=== PATIENT | male | born 1935 | race Caucasian/White ===

== ENCOUNTER 2017-01-10 15:24 | Inpatient (IN) | payer OTHER, MEDICARE ==
[~2017-01-10] VITALS: Ht 177.8 cm; Wt 79.9 kg
[2017-01-10] MEDS ORDERED: FUROSEMIDE40 M1 PO (15:39)
[2017-01-10] MEDS ORDERED: LISINOPRIL10 M1 PO (15:39)
[2017-01-10] MEDS ORDERED: METOPROLOL TART25 M1 PO (15:40)
[2017-01-10] MEDS ORDERED: EFFIENT10 M1 PO (15:40)
[2017-01-10] MEDS ORDERED: GLIPIZIDE ER5 M1 PO (15:46)
[2017-01-10] MEDS ORDERED: METFORMIN HCL500 M3 PO (15:46)
[2017-01-10] MEDS ORDERED: ZETIA10 M1 PO (15:46)
[2017-01-10] MEDS ORDERED: GABAPENTIN300 M2 PO (15:47)
[2017-01-10] MEDS ORDERED: TAMSULOSIN HCL0.4 M1 PO (15:47)
[2017-01-10] MEDS ORDERED: FINASTERIDE5 M1 PO (15:47)
[2017-01-10] MEDS ORDERED: CRESTOR40 M2 PO (15:48)
[2017-01-10] MEDS ORDERED: ASPIRIN EC81 M1 PO (15:49)
--- NOTE | 2017-01-10 16:02 | ED CRITICAL CARE ---
History of Present Illness General Chief Complaint: Cardiopulmonary Resuscitation Stated Complaint: BIBA CARDIAC ARREST Source: family, EMS Exam Limitations: unable to give history, clinical condition Vital Signs & Intake/Output Vital Signs & Intake/Output Vital Signs Date Time Temp Pulse Resp B/P Pulse O2 O2 Flow FiO2 Ox Delivery Rate / 1050 50 03/ 0951 97.6 70 18 111/52 03/02 0905 97.2 70 18 97/48 03/02 0800 97.2 70 18 124/54 93 Ventilator 50% 03/ 0750 25.8 03/02 0546 50 03/02 0400 96 Ventilator 40% 03/ 0302 50 03/02 0030 50 03/ 0000 97 Ventilator 40% 03/ 0000 99.2 74 25 120/58 97 Ventilator 40% 03/ 2225 50 03/ 2000 96 Ventilator 40% 03/ 1910 40 03/ 1615 40 03/ 1600 97.4 70 18 100/40 95 Ventilator 40% 03/ 1600 95 Ventilator 40% / 1541 69 103/44 03/ 1424 40 03/ 1200 71 81/42 03/ 1200 95 Ventilator 40% 03/ 1151 40 ED Intake and Output 03/ 0000 03/01 1200 Intake Total 3514 1480 Output Total 450 485 Balance 3064 995 Intake, IV 3514 1480 Intake, Oral 0 Intake, Tube 0 Feeding Intake, Tube 0 Irrigant Number 0 0 Bowel Movements Output, 25 Gastric Drainage Output, Urine 450 460 Patient 161 lb Weight Allergies Coded Allergies: No Known Allergies (01/10/17) Reconcile Medications Aspirin (Ecotrin*) 81 MG TABLET.DR 1 TAB PO DAILY HEART/BLOOD (Reported) Ezetimibe (Zetia) 10 MG TABLET 1 TAB PO DAILY CHOLESTEROL (Reported) Finasteride 5 MG TABLET 1 TAB PO DAILY PROSTATE (Reported) Furosemide 40 MG TABLET 0.5 TAB PO DAILY DIURETIC (Reported) Gabapentin 300 MG CAPSULE 1 CAP PO BID NEUROPATHY (Reported) Glipizide (Glipizide ER) 5 MG TAB.ER.24 1 TAB PO DAILY DM (Reported) Lisinopril 10 MG TABLET 1 TAB PO DAILY BP (Reported) Metformin HCl 500 MG TABLET 1 TAB PO BID DM (Reported) Metoprolol Tartrate 25 MG TABLET 1 TAB PO BID HEART/BP (Reported) Prasugrel HCl (Effient) 10 MG TABLET 1 TAB PO DAILY HEART (Reported) Rosuvastatin Calcium (Crestor) 40 MG TABLET 1 TAB PO EOD CHOLESTEROL ( Reported) Tamsulosin HCl 0.4 MG CAP.ER.24H 1 CAP PO DAILY PROSTATE (Reported) Triage Nurses Notes Reviewed? yes HPI: Patient presents for evaluation of a possible choking episode while eating prior to arrival. Patient was noted to be nonverbal and to become diaphoretic and cyanotic. Attempts at Heimlich maneuver were unsuccessful. Upon arrival of the paramedics the patient was intubated after they pulled food from his oropharynx. He was then placed on an epinephrine drip. (DINESH SPENCER,KIRIT Fitzgerald) Past History Travel History Traveled to [place] past 21 day No Medical History Any Pertinent Medical History? see below for history Surgical History Surgical History: unobtainable Family History Hx Contributory? No (KIRIT SHULTZ MD) Review of Systems Review of Systems Constitutional: Reports: see HPI. Comments pt unable to provide ros. (KIRTI SHULTZ MD) Physical Exam Physical Exam General Appearance: see below Comments: gen: wn, wd, intubated, unresponsive head: nc/at eyes: small but not pinpoint pupils, unable to assess eom ears: normal inspection nose: no bleeding throat/mouth: ett in place neck: no goiter, no trauma heart: rrr, no mrg lungs: cta bilaterally with normal air entry with bagged ventilations chest: erythema associated with cpr, no ecchy abd: soft, nd back: no signs of trauma ext: no spontaneous movements, non specific response to noxious stimuli skin: warm and dry circulatory: weak radial pulses neuro: unable to assess psych: unable to assess Core Measures ACS in differential dx? Yes CVA/TIA Diagnosis: No Severe Sepsis Present: No Septic Shock Present: No (KIRIT SHULTZ MD) Progress Differential Diagnoses I considered the following diagnoses in my evaluation of the patient: choking, dysrhythmia, mi. Plan of Care: Orders Procedure Date/time Status Code Status 01/13 0838 Active Cannon, Insertion/Removal/Asses 01/13 0751 Active ARTERIAL BLOOD GAS (GEN) 01/13 0750 Complete VALPROIC ACID 01/13 0500 Complete ICU LAB BUNDLE 01/13 0038 Complete VENTILATOR PARAMETERS 01/12 2210 Complete Seizure Precautions 01/12 1510 Active LACTIC ACID 01/12 1200 Complete DEPAKOTE LEVEL 01/12 1200 Complete VENTILATOR PARAMETERS 01/12 0807 Complete Lab Add-on Test 01/12 UNK Active MISSING MEDICATION FORM 01/12 UNK Active EKG 01/12 UNK Active Current Medications Sig/Marcos Start time Last Medication Dose Stop Time Status Admin Potassium Chloride 20 MEQ Q1H 01/13 1115 AC 01/13 1216 Acetaminophen 1,000 MG Q6P PRN 01/10 1815 AC (Ofirmev) Morphine Sulfate 2 MG Q4P PRN 01/10 181 AC (Morphine) Laboratory Tests 01/13/17 0920: pH 7.34 L, pCO2 28.3 L, pO2 86, HCO3 15 L, ABG O2 Sat (Measured) 96.0, Carboxyhemoglobin 0.3 L, O2 Concentration % 50, Respiration Rate 18, O2 Delivery Method VENT, Vent Mode AC, Expiratory Pressure 5, Tidal Volume 550, Phlebotomy Draw Site RIGHT RADIAL 01/13/17 0445: Anion Gap 11, Estimated GFR > 60, Glucose 117 H, Calcium 7.3 L, Phosphorus 2.6 , Magnesium 2.2, Total Bilirubin 0.5, AST 49, ALT 96 H, Albumin 2.1 L, CBC w Diff MAN DIFF ORDERED, RBC 2.85 L, MCV 87.8, MCH 30.1, RDW 15.2 H, MPV 10.4, Gran % 87.7 H, Lymphocytes % 6.3 L, Monocytes % 6.0, Eosinophils % 0, Basophils % 0 L, Absolute Granulocytes 14.0 H, Segmented Neutrophils 82 H, Band Neutrophils 9 H, Absolute Lymphocytes 1.0 L, Lymphocytes 8 L, Monocytes 1 L, Absolute Monocytes 1.0 H, Absolute Eosinophils 0, Absolute Basophils 0, Platelet Estimate DECREASED, Poikilocytosis 1+, Anisocytosis 1+, Ovalocytes , PUBS MCHC 34.3, Valproic Acid 76.1 01/13/17 0038: Anion Gap 10, Estimated GFR > 60, Glucose 95, Calcium 7.3 L, Phosphorus 2.6, Magnesium 2.1, Total Bilirubin 0.5, AST 54, ALT 98 H, Albumin 2.1 L 01/12/17 1200: Anion Gap 12, Estimated GFR > 60, Glucose 223 H, Lactic Acid 2.7 H, Calcium 7.3 L, Phosphorus 2.6, Magnesium 1.6, Total Bilirubin 0.5, AST 70 H, ALT 118 H, Albumin 2.1 L, PT 15.2 H, INR 1.45 H, APTT 30, Fibrinogen Activity 258, Fibrin Degrad Products > 40 ug/ml H, CBC w Diff MAN DIFF ORDERED, RBC 2.99 L, MCV 87.3, MCH 29.2, RDW 14.5, MPV 9.7, Gran % 91.9 H, Lymphocytes % 3.8 L, Monocytes % 4.2, Eosinophils % 0, Basophils % 0.1, Absolute Granulocytes 19.5 H , Segmented Neutrophils 87 H, Band Neutrophils 8 H, Absolute Lymphocytes 0.8 L, Lymphocytes 4 L, Monocytes 1 L, Absolute Monocytes 0.9 H, Absolute Eosinophils 0, Absolute Basophils 0, Platelet Estimate VERIFIED BY SMEAR, Polychromasia 1+, Poikilocytosis 2+, Ovalocytes 1+, Fernando Cells 2+, PUBS MCHC 33.4, Valproic Acid 56.5 Microbiology 01/13 925 BLOOD: Blood Culture - RECD 01/14 920 BLOOD: Blood Culture - RECD Initial ED EKG: nonspecific ST T wave chg, underlying rhythm appears sinus/ narrow complex dorene Comments: 01/10/2017 3:55:13 PM patient's case discussed with Dr. Chong who is requesting a CAT scan of the head and a triple-lumen catheter. 01/10/2017 4:12:46 PM 7.// 87% PER RESP. 01/10/2017 4:51:40 PM patient has been evaluated by both Dr. Chong and Dr. Nay Bermudez. pt evaluated by [employer] rep. one defib recorded for fine v fib. otherwise pts myoclonic jerking not due to difibs. treated with iv ativan for sedations. keppra given for possible seizures. levophed initiated after pre hosp epi drip exhausted. amiodarone drip infusing as well. central line placed by pa due to number of drips in place. (DINESH SPENCER,KIRIT Fitzgerald) Departure Departure Disposition: STILL A PATIENT Condition: Stable Clinical Impression Primary Impression: Respiratory arrest before cardiac arrest Referrals: PILAR MICHELE MD Departure Forms: General Discharge Information Admission Note Spoke With: Kristopher TOURE MD Documentation of Exam: Documentation of any treatments & extenuating circumstances including Concerns Regarding Discharge (functional status, medication knowledge or non-compliance, living conditions, etc.) that warrant an admission rather than observation: pt successfully resuscitated from cardiac arrest. requires artifical ventilation, iv levophed, cont cardiac monitoring and icu level care. cardiology consult. neuro consult. targeted temperature management. prognosis grave. (KIRIT SHULTZ MD) Procedures Central Line Central Line Lumen: triple Central Line Procedure: Yes: bentadine prep? (chlorhexadine), sterile drapes applied, sterile dressing applied. Central Line Position: internal jugular (R) Anesthesia: ativan drip for sedation Complications: none Central Line Post Position: sutured, good blood return Progress: i participated in the care of this patient by placing the R central line under the supervision of dr shultz. risks and benefits dw the family. routine placement without complications, US guided in the linear plane, artery was itentified and was medial to the IJ. no hematoma, biopatch and tegaderm applied. ct scan was taken immediately after the central line was placed, i reviewed it and noted the central line to the in the right ventrical. i called the ICU and spoke to the resident taking care of the patient and conveyed this to him, asking that he pull the line back at least 4 cm. (MANDI POWELL) Critical Care Note Critical Care Note Critical Care Time: 75-104 min (DINESH SPENCER,KIRIT Fitzgerald) Departure Departure Disposition: STILL A PATIENT Condition: Stable Clinical Impression Primary Impression: Respiratory arrest before cardiac arrest Referrals: PILAR MICHELE MD Departure Forms: General Discharge Information Admission Note Spoke With: Kristopher TOURE MD Documentation of Exam: Documentation of any treatments & extenuating circumstances including Concerns Regarding Discharge (functional status, medication knowledge or non-compliance, living conditions, etc.) that warrant an admission rather than observation: pt successfully resuscitated from cardiac arrest. requires artifical ventilation, iv levophed, cont cardiac monitoring and icu level care. cardiology consult. neuro consult. targeted temperature management. prognosis grave. (KIRIT SHULTZ MD) Procedures Central Line Central Line Lumen: triple Central Line Procedure: Yes: bentadine prep? (chlorhexadine), sterile drapes applied, sterile dressing applied. Central Line Position: internal jugular (R) Anesthesia: ativan drip for sedation Complications: none Central Line Post Position: sutured, good blood return Progress: i participated in the care of this patient by placing the R central line under the supervision of dr shultz. risks and benefits dw the family. routine placement without complications, US guided in the linear plane, artery was itentified and was medial to the IJ. no hematoma, biopatch and tegaderm applied. ct scan was taken immediately after the central line was placed, i reviewed it and noted the central line to the in the right ventrical. i called the ICU and spoke to the resident taking care of the patient and conveyed this to him, asking that he pull the line back at least 4 cm. (JUAN JOSE WINSTON,MANDI) Critical Care Note Critical Care Note Critical Care Time: 75-104 min (DINESH SPENCER,KIRIT Fitzgerald) pH 7.26 *L, pCO2 29 L, pO2 96, HCO3 13 L, ABG O2 Sat (Measured) 95.0 L, P-50 (Temp Corrected) N, Carboxyhemoglobin 0.3 L, O2 Concentration % 100%, Temperature 98.0, Respiration Rate 26, O2 Delivery Method ESPRIT, Vent Mode AC, Expiratory Pressure 5, Tidal Volume 550, Phlebotomy Draw Site RIGHT RADIAL 01/10/17 1820: Urine Color YEL, Urine Clarity HAZY H, Urine pH 6.0, Ur Specific [place] >= 1.030, Urine Protein >=300 H, Urine Ketones NEG, Urine Nitrite NEG, Urine Bilirubin NEG, Urine Urobilinogen 1.0, Ur Leukocyte Esterase NEG, Ur Microscopic SEDIMENT EXAMINED, Urine RBC 15-25 H, Ur Epithelial Cells RARE, Urine Bacteria MOD H, Granular Casts 5-10 H, Urine Hemoglobin LARGE H, Urine Glucose NEG 01/10/17 1602: Anion Gap 23 H, Estimated GFR > 60, BUN/Creatinine Ratio 18.9, Glucose 251 H, Calcium 8.7, Phosphorus 8.4 H, Magnesium 2.4 H, Total Bilirubin 0.6, AST 374 H, ALT 327 H, Alkaline Phosphatase 86, Troponin I < 0.01, Total Protein 6.4, Albumin 3.4 L, Globulin 3.0, Albumin/Globulin Ratio 1.1, PT 12.7 H, INR 1.21 H, APTT 32, CBC w Diff MAN DIFF ORDERED, RBC 4.57 L, MCV 89.1, MCH 29.6, RDW 14.4, MPV 10.2, Gran % 71.1, Lymphocytes % 24.7, Monocytes % 3.1, Eosinophils % 0.9, Basophils % 0.2, Absolute Granulocytes 14.1 H, Segmented Neutrophils 53, Band Neutrophils 22 H, Absolute Lymphocytes 4.9 H, Lymphocytes 23, Monocytes 1 L, Absolute Monocytes 0.6, Eosinophils 1, Absolute Eosinophils 0.2, Absolute Basophils 0, Platelet Estimate VERIFIED BY SMEAR, Poikilocytosis 1+, Savery Cells 1+, PUBS MCHC 33.3, Fld Total RBCs Counted 100 01/10/17 1600: pH 7.11 *L, pCO2 35, pO2 73 L, HCO3 11 L, ABG O2 Sat (Measured) 87.0 L, Carboxyhemoglobin 1.0 L, O2 Concentration % 100%, Respiration Rate 16, O2 Delivery Method ESPRIT VENT, Vent Mode AC, Expiratory Pressure 5, Tidal Volume 550, Phlebotomy Draw Site RIGHT RADIAL Microbiology 01/10 2100 LOWER RESP: Respiratory Culture - RES 01/10 2100 LOWER RESP: Gram Stain - RES 01/10 2010 UPPER RESP: Surveillance Culture - RECD 01/10 2010 GI: Surveillance Culture - RECD 01/10 1830 BLOOD: Blood Culture - RECD 01/10 1827 BLOOD: Blood Culture - RECD 01/10 1607 URINE ROUT: Urine Culture - RES Comments: 01/10/2017 3:55:13 PM patient's case discussed with Dr. Chong who is requesting a CAT scan of the head and a triple-lumen catheter. 01/10/2017 4:12:46 PM 7.// 87% PER RESP. 01/10/2017 4:51:40 PM patient has been evaluated by both Dr. Chong and Dr. Nay Bermudez. (DINESH SPENCER,KIRIT Fitzgerald) Departure Departure Condition: Stable Referrals: PILAR MICHELE MD Departure Forms: General Discharge Information (DINESH SPENCER,KIRIT Fitzgerald) Procedures Central Line Central Line Lumen: triple Central Line Procedure: Yes: bentadine prep? (chlorhexadine), sterile drapes applied, sterile dressing applied. Central Line Position: internal jugular (R) Anesthesia: ativan drip for sedation Complications: none Central Line Post Position: sutured, good blood return Progress: i participated in the care of this patient by placing the R central line under the supervision of dr shultz. risks and benefits dw the family. routine placement without complications, US guided in the linear plane, artery was itentified and was medial to the IJ. no hematoma, biopatch and tegaderm applied. ct scan was taken immediately after the central line was placed, i reviewed it and noted the central line to the in the right ventrical. i called the ICU and spoke to the resident taking care of the patient and conveyed this to him, asking that he pull the line back at least 4 cm. (MANDI POWELL)
[2017-01-10 16:17] LABS: ABSOLUTE BASOPHIL COUNT 0 /CUMM (0.0-0.2); ABSOLUTE EOSINOPHIL COUNT 0.2 /CUMM (0.0-0.7); ABSOLUTE GRANULOCYTE CT 14.1 /CUMM (1.4-6.5); ABSOLUTE LYMPH COUNT 4.9 /CUMM (1.2-3.4); ABSOLUTE MONOCYTE COUNT 0.6 /CUMM (0.10-0.60); BASOPHIL % 0.2 % (0.0-2.0); EOSINOPHIL % 0.9 % (0-5); GRANULOCYTE % 71.1 % (42.2-75.2); HEMATOCRIT 40.7 % (42-52); MEAN CORPUSCULAR HGB 29.6 PG (27.0-31.0); MEAN CORPUSCULAR HGB CONC 33.3 G/DL (33.0-37.0); MEAN CORPUSCULAR VOLUME 89.1 FL (80.0-94.0); MEAN PLATELET VOLUME 10.2 FL (7.4-10.4); PLATELET COUNT 203 /CUMM (130-400); RBC DISTRIBUTION WIDTH 14.4 % (11.5-14.5); RED BLOOD CELL CT 4.57 /CUMM (4.70-6.10); WHITE BLOOD CELL COUNT 19.9 /CUMM (4.8-10.8)
--- NOTE | 2017-01-10 16:48 | NUR ---
1522 + PULSES EPI GTT BY EMS AT 20 MCG/MIN GIVEN TOTAL OF 5 MG EPI IVP EN ROUTE INTUBATED IN FIELD, 7.5 ETT, 24 AT GUM FABRICIO, 18 G IN LAC 1524 PEA 1 AMP EPI CPR 1527 PULSES RETURNED, SINUS SEGUNDO EPI GTT CONTINUED, BOLUS OF 1000MG NS STARTED 2 IV'S ESTABLISHED 20 G L WRIST 20 R WRIST VS: 122/74 80 TEMP 93.0 100% VENT SETTINGS: RATE 26 PEAK FLOW 75 TIDAL VOLUME 550 O2% 100 1533 DOPAMINE GTT STARTED AT 10MCG/KG/MIN BP 147/68 HR 82 02 100% PT NOTED TO BE HAVING UNPURPOSEFUL SPASTIC MOVEMENTS, DR MONTIEL TO BEDSIDE TO EVAL, DR MONTIEL STATING HE BELIVES IT IS FROM PT'S DEFIBRILLATOR FIRING. PT APPEARS TO BE POSTURING. 1545 145/79 82 APPEARS PACED 100% O2 CONTINUES TO REMAIN UNRESPONSIVE, CONTINUES TO APPEAR TO BE HAVING 1600 116/58 84 HR 100% 02 SAT VENT SETTINGS SWITCHED VENT SETTINGS TO 26 RESP RATE STARTED ON AMIODARONE GTT AT 33.3ML/HR EPI GTT DC'ED AND STARTED AT LEVOPHED GTT AT 5MCG/MIN 1615 83 112/74 100% 02 1625 140/79 84 100%
--- NOTE | 2017-01-10 16:48 | NUR ---
PT JIE AFTER BECOMING UNRESPONSIVE AT A [facility] IN [place], PER EMS, PT CHOKED CALL CENTER TRAINER, BLS RESPONDED AND FOUND PT IN CARDIAC ARREST, CPR STARTED. ON VEMS ARRIVAL, PT ASYSTOLE, GIVEN 3 ROUND EPI, SANGEETA APPLIED AND CPR STARTED. GIVEN 300 MG AMIODARONE IN ROUTE, ON ARRIVAL TO ED, +PULSES BP 74/44.
--- NOTE | 2017-01-10 16:52 | History & Physical ---
JANA SPENCER,CHELSI 01/10/17 1651: General Information and HPI MD Statement: I have seen and personally examined NEVIN UMAÑA and documented this H&P. The patient is a 81 year old M who was brought in by ambulance doing CPR. Source of Information: family, Deb Exam Limitations: patient intubated, post CPR, and gave the history History of Present Illness: 81-year-old male with past medical history of diabetes mellitus, hypertension, coronary artery disease status post open heart surgery more than 20 years back, h/o VFib s/p defibrillator, hyperlipidemia, BPH was brought in by ambulance with continuing current pulmonary resuscitation. Patient was intubated when I went to take history in the emergency department. History is provided by patient's . According to patient's , both patient and his were having lunch in a restaurant at around 2:30 PM earlier today when he stopped eating, was staring ahead, had an open mouth, and stopped talking. He was unable to respond to commands. People in the restaurant tried ?Heimlich maneuver which was unsuccessful to bring out anything, 911 was called. She remembers one of the people in the restaurant mentioning him turning blue and not having pulse. The paramedics brought him to the hospital via ambulance providing CPR. CPR was continued in the emergency department, received epinephrine initially and later Levophed is ongoing. He has been intubated. , son, daughter are present with him and have been explained about his condition. Allergies/Medications Allergies: Coded Allergies: No Known Allergies (01/10/17) Home Med list Aspirin (Ecotrin*) 81 MG TABLET.DR 1 TAB PO DAILY HEART/BLOOD (Reported) Ezetimibe (Zetia) 10 MG TABLET 1 TAB PO DAILY CHOLESTEROL (Reported) Finasteride 5 MG TABLET 1 TAB PO DAILY PROSTATE (Reported) Furosemide 40 MG TABLET 0.5 TAB PO DAILY DIURETIC (Reported) Gabapentin 300 MG CAPSULE 1 CAP PO BID NEUROPATHY (Reported) Glipizide (Glipizide ER) 5 MG TAB.ER.24 1 TAB PO DAILY DM (Reported) Lisinopril 10 MG TABLET 1 TAB PO DAILY BP (Reported) Metformin HCl 500 MG TABLET 1 TAB PO BID DM (Reported) Metoprolol Tartrate 25 MG TABLET 1 TAB PO BID HEART/BP (Reported) Prasugrel HCl (Effient) 10 MG TABLET 1 TAB PO DAILY HEART (Reported) Rosuvastatin Calcium (Crestor) 40 MG TABLET 1 TAB PO EOD CHOLESTEROL ( Reported) Tamsulosin HCl 0.4 MG CAP.ER.24H 1 CAP PO DAILY PROSTATE (Reported) Past History Travel History Traveled to [place] past 21 day No Medical History Cardiovascular: CAD, hypertension, hyperlipidemia Endocrine: diabetes Other Medical Hx: ? Peripheral Vascular Disease Surgical History Surgical History: vascular procedure ?Bypass in lower part of the body, CABG in 1980s Past Family/Social History Psychosocial History Who Do You Live With? spouse Primary Language: Maori Review of Systems Review of Systems Constitutional: Reports: no symptoms. EENTM: Reports: no symptoms. Cardiovascular: Reports: see HPI. Respiratory: Reports: see HPI. GI: Reports: no symptoms. Genitourinary: Reports: no symptoms. Musculoskeletal: Reports: no symptoms. Skin: Reports: no symptoms. Neurological/Psychological: Reports: see HPI. Hematologic/Endocrine: Reports: no symptoms. Immunologic/Allergic: Reports: no symptoms. All Other Systems: Reviewed and Negative Exam & Diagnostic Data Last 24 Hrs of Vital Signs/I&O Vital Signs Date Time Temp Pulse Resp B/P Pulse O2 O2 Flow FiO2 Ox Delivery Rate 01/10 1812 80 86 144/68 96 Ventilator 100% 01/10 1804 93 122/74 97 Ventilator 100% 01/10 1757 94.0 85 126/71 07 Ventilator 100% 01/10 1754 94.0 84 126/71 98 Ventilator 100% 01/10 1747 85 01/10 1740 94.0 84 122/74 98 Ventilator 100% 01/10 1730 94.0 86 126/71 98 Ventilator 100% 01/10 1721 93.0 86 116/58 99 Ventilator 100% 01/10 1708 84 01/10 1550 100 Physical Exam General Appearance intubated, sedated Skin cold to touch, left hand has melanotic lesion about 2x3 cm irregular HEENT Atraumatic, b/l pupils constristed, sluggish to no reflex, cannot asses EOM Neck No JVD Lymphatic Cervical nl Cardiovascular Regular Rate Lungs Clear to Auscultation, ventillated breaths, NO wheeze heard b/l Abdomen Soft, absent bowel sound Neurological cannot assess because of current intubated and sedated condition Extremities cold to touch, no wounds, not red, no edema b/l Vascular pulses not palpable over dorsalis pedis b/l, weak pulse palpable over radial arteries Last 24 Hrs of Labs/Wilber: Laboratory Tests 01/10/17 1602: Anion Gap 23 H, Estimated GFR > 60, BUN/Creatinine Ratio 18.9, Glucose 251 H, Calcium 8.7, Magnesium 2.4 H, Total Bilirubin 0.6, AST 374 H, ALT 327 H, Alkaline Phosphatase 86, Troponin I < 0.01, Total Protein 6.4, Albumin 3.4 L, Globulin 3.0, Albumin/Globulin Ratio 1.1, CBC w Diff MAN DIFF ORDERED, RBC 4.57 L, MCV 89.1, MCH 29.6, RDW 14.4, MPV 10.2, Gran % 71.1, Lymphocytes % 24.7, Monocytes % 3.1, Eosinophils % 0.9, Basophils % 0.2, Absolute Granulocytes 14.1 H, Segmented Neutrophils 53, Band Neutrophils 22 H, Absolute Lymphocytes 4.9 H , Lymphocytes 23, Monocytes 1 L, Absolute Monocytes 0.6, Eosinophils 1, Absolute Eosinophils 0.2, Absolute Basophils 0, Platelet Estimate VERIFIED BY SMEAR, Poikilocytosis 1+, [place] Cells 1+, PUBS MCHC 33.3, Fld Total RBCs Counted 100 01/10/17 1600: pH 7.11 *L, pCO2 35, pO2 73 L, HCO3 11 L, ABG O2 Sat (Measured) 87.0 L, Carboxyhemoglobin 1.0 L, O2 Concentration % 100%, Respiration Rate 16, O2 Delivery Method ESPRIT VENT, Vent Mode AC, Expiratory Pressure 5, Tidal Volume 550, Phlebotomy Draw Site RIGHT RADIAL Microbiology 01/10 1816 LOWER RESP: Respiratory Culture - ORD 01/10 1816 LOWER RESP: Gram Stain - ORD 01/10 1816 BLOOD: Blood Culture - ORD 01/10 1816 BLOOD: Blood Culture - ORD 01/10 160 URINE ROUT: Urine Culture - RECD Diagnostic Data Other Results Will go to CT scan room before being transported to the ICU. Awaiting test. Assessment/Plan Assessment: 81-year-old male with past medical history of diabetes mellitus, hypertension, coronary artery disease status post open heart surgery more than 20 years back, h/o VFib s/p defibrillator, hyperlipidemia, BPH was brought in by ambulance with continuing current pulmonary resuscitation. Continued cardiopulmonary resuscitation in the emergency department. Received epinephrine. He is being transferred to the ICU for the following issues: #Choking episode, status post cardiopulmonary resuscitation Patient possibly has an anoxic brain injury, possible trace right pneumothorax, cardiac arrhythmias, shock liver. Initial tests show leukocytosis, baseline blood work. Patient is currently intubated, and has Levophed drip running. -Patient's family is the decision maker and requested that the patient remains full code even after being explained about the possibilities/consequences of his current condition. -She wants the patient to be placed on hypothermia protocol. Dr. Bermudez rasper machine operator consulted who does not think there is a contraindication to initiate hypothermia protocol at this time. * Plan to admit the patient in the ICU * Follow-up CAT scan of the head and chest, ABGs, labs every 4 hours, and repeat lytes if necessary * Initiate hypothermia protocol. * Seizure precautions with Keppra drip. Do not use paralytics as it can mask any seizure episode. Shivering is considered a normal reaction in hypothermia. * Maintenance IV fluids normal saline at 100 mL per hour * Follow-up panculture while putting the patient on empiric IV Unasyn * Cardiovascular: Continue Levophed with a goal of MAP 65. May add Luis- Synephrine, followed by vasopressin if required. * IV pantoprazole as the patient will be nothing by mouth, intubated and has high stressors. * Outpatient medications were confirmed and he is on Prasugrel, and other medications as listed by the ED but his pharmacy does not have an order of ASA 81mg PO * Patient's family counseled about the patient's condition, possible poor prognosis and plan of care was discussed. His wanted everything to be done for him, that is, full code. So pursuing as planned above. * His wants to be informed if any case he has another episode of cardiac arrest, to plan further management/his CODE STATUS. * Cardiology to follow him tomorrow morning. * Home medications to be continued as his condition permits. * Nothing by mouth, as he is intubated. * DVT prophylaxis with alps. * CODE STATUS full code. As Ranked By This Provider Problem List: 1. Cardiac arrest 2. Choking 3. Aspiration of liquid 4. HTN (hypertension) 5. CAD (coronary artery disease) 6. HLD (hyperlipidemia) 7. Diabetes mellitus, type 2 8. BPH (benign prostatic hyperplasia) Core Measures/Miscellaneous Acute Coronary Syndrome ACS Diagnosis: No Cerebrovascular Accident CVA/TIA Diagnosis: No Congestive Heart Failure CHF Diagnosis: No Venous Thromboembolism VTE Risk Factors: Age > 40 VTE Prophylaxis Ordered Inpt: Mechanical (ALPS/TEDS) No Mech VTE prophylaxis d/t: No contraindications No VTE Pharm Prophylaxis d/t: Blood coag disorder VTE Diagnosis: No VTE Type: NONE VTE Confirmed by (Test): NONE Severe Sepsis Severe Sepsis Present: No Septic Shock Septic Shock Present: No Miscellaneous Documentation Attending Case Discussed With: Dr Amisha Mcdermott Primary Care Physician: RAUL MARTINEZ MD Patient sees these Specialists Case Coordinator/ Hand Coremaker Canine Service Teacher Level of Patient Care: Critical Care (CRI) MESFIN SPENCER,Kristopher BRANDON 01/10/17 1652: Attending MD Review Statement Attending Statement Attending MD Statement: examined this patient, discuss w/resident/PA/PORTAINER OPERATOR, agreed w/resident/PA/PORTAINER OPERATOR, discussed with family, reviewed EMR data (avail), reviewed images, amended to note Attending Assessment/Plan: I have personally seen and examined the patient, and agree with the residents assessment and plan as detailed above. Briefly, the patient is an 81 year old male with an extensive cardiac history. The patient is also bed bound and requires 24 hour care which is done by his . The patient was eating at a diner earlier today, where he began to suddenly choke followed by cyanosis and unresponsiveness. Bystanders attempted the Heimlich maneuver without success. Upon the arrival of EMS, the patient was pulseless and CPR was started. He received 3 rounds of epinephrine enroute. The patient arrived in the ED with pulses and a BP in the 70s. He arrested a second time in the ED requiring CPR for a short period of time, with ROSC. The patient has been seizing and is exhibiting decerebrate posturing. He is hypotensive, requiring 2 pressors. He remains unresponsive. Impression: 1. Choking episode, leading to aspiration followed by cardiopulmonary arrest. 2. Possible anoxic brain injury. 3. Shock liver. 4. Possible trace right pneumothorax. 5. Multiple cardiac comorbidities. Plan: * Start Keppra 2 grams IV x 1 now. * Then continue Keppra 500 mg IV every 8 hours. * If the seizures continue, can rebolus with 1 gram of Keppra. * Neurology consult called, I personally discussed the case with Dr. Dennison. * IVFs - normal saline at 100 ml/hour. * Will bolus as needed for low BP/low urine output. * Ventilator settings adjusted, will check an ABG in 1 hour post change. * Check a CT of the head and chest. * Check coags * If the head CT shows no bleed, begin hypothermia protocol. * Monitor labs as per the protocol. * Panculture. * Start empiric IV Unasyn. * Continue levaphed for BP support, MAP goal of 65 mm Hg. * If the patient's BP is unstable, add Neosynephrine followed by vasopressin. * Start GI prophylaxis. * DVT prophylaxis with alps (patient was on blood thinner prior to admission). * Confirm outpatient medications. * Will make further recommendations pending the above testing. * I discussed the patient's condition with his and daughter at length. I informed them the patient is critically ill with the potential poor prognosis and they understand this. Regardless, they still request the patient is full code and they want to pursue all care, including hypothermia, noting I explained the risks associated with cooling to them. BERNARDOUTE 01/10/172026: Resident Review Statement Resident Statement: examined this patient, discussed with public relations intern, agreed with public relations intern, discussed with family, reviewed EMR data (avail), discussed with nursing , reviewed images, amended to note Other Findings: This is a 81-year-old man with past medical history of diabetes mellitus, hyperlipidemia, hypertension, coronary artery disease status post open heart surgery and defibrillator placement, benign prostatic hyperplasia, peripheral vascular disease, neuropathic pain. Presented to the emergency department due to episode of choking and aspiration when he was in the restaurant the patient underwent spirometry distress and after he was intubated by the EMS and the restaurant patient underwent cardiac arrest, CPR was initiated patient receive multiple rounds of epinephrine. Patient arrived to the ED and he was intubated and was started on Levophed, Ativan drip and IV Keppra. Physical examination, lab and imaging as above. Problem list: -Choking, associated with aspiration leading to cardiopulmonary arrest. -Right apical pneumothorax. -Transaminitis Plan: -Admit patient to the critical care. -Vitals, continuous blood pressure monitoring, strict MARISA's. -Start hypothermia protocol. -Normal saline IV fluid at 100 mL/h. -Continue Ativan drip for sedation,will start Propofpl if needed per hypothermia protocol -We'll give total of 2 g of IV Keppra and we'll start the patient on 500mg every 8 -Continue Levophed to keep MAP>65. if we need more pressor we'll start Neosynephrine -Start the patient on IV Unasyn 3 g every 6 -We'll start IV Protonix for GI prophylaxis -Nothing by mouth insulin sliding scale, Accu-Chek -ICU bundle every 4 hours per hypothermia protocol -Serial troponin and EKG -Blood and urine culture, sputum culture -Check CBC and ICU bundle in the morning for evaluation. -IV Tylenol and morphine PRN for pain -Confirm p.t home medication, get records from PCP in a.m. -DVT prophylaxis: Alps -Full code
--- NOTE | 2017-01-10 16:56 | RADIOLOGY REPORT ---
EXAMINATION: XR PORTABLE CHEST CLINICAL INFORMATION: CHF. Endotracheal tube. Status post CPR and choking episodes. COMPARISON: None TECHNIQUE: Portable AP view of the chest was obtained. FINDINGS: Endotracheal tube terminates 4 cm from the kristy. AICD lead terminates in the right ventricle. AICD unit overlies the left hemithorax. Sternal wires and CABG markers overlie the chest centrally. EKG leads are present. The right lateral aspect of the right hemithorax is not included on this study. Cardiac and mediastinal contours are within normal limits in size. There is pulmonary venous congestion. Patchy alveolar opacities in the left midlung and left lung base may represent asymmetric pulmonary alveolar edema or aspiration. Minimal interstitial edema. No effusions are identified on this study. There is a possible trace pneumothorax at the right lung apex, not completely imaged on this study. No rib fractures are identified, though the right hemithorax is only partially imaged on this study. IMPRESSION: 1. Endotracheal tube in good position. 2. Patchy alveolar opacities in the left midlung and left lung base which could be due to aspiration or early alveolar edema. 3. Probable trace right apical pneumothorax. This critical result was discussed by telephone with Dr. Leggett at 4:51 PM on 01/10/2017 .
--- NOTE | 2017-01-10 17:17 | NUR ---
DEFIB REP AT BEDSIDE TO DO INTERROGATION, REPORTING DEFIBRILLATOR FIRED AT 4:12 PM FOR VFIB, CONVERTED TO SR.
--- NOTE | 2017-01-10 17:35 | Cons- Cardiology ---
General Information and HPI Consulting Request Date of Consult: 01/10/17 Requested By: Bang LEGGETT MD Reason for Consult: Cardiac arrest due to apparent bolus food aspiration in a patient with known underlying heart disease and a defibrillator in place. Source of Information: family, EMS Exam Limitations: clinical condition History of Present Illness: The patient is an 81-year-old male with underlying heart disease with distant coronary artery bypass surgery. He also has a single-chamber defibrillator which was implanted in 2009, although I believe this is a replacement for an earlier device. We don't really know the details of his cardiac history. He was apparently in his normal state of health, eating lunch at a local restaurant when he "turned blue" and the passed out. Apparently the Heimlich maneuver was attempted but was unsuccessful. According to EMT report they were able to remove some food from his oropharynx. The patient was apparently pulseless and CPR was performed. Amiodarone was given in the ambulance and continued in the emergency department. In the ED he was started on pressors and his blood pressure and pulse were regained. At some point he began having brief decerebrate myoclonic seizures. Initially this was thought to be defibrillator shocks, but we were able to show by interrogating his device that they were not defibrillator shocks. In fact he did have one defibrillator shock which occurred about 4 PM, probably while he was still in the ambulance. This was an appropriate shock given for ventricular tachycardia which degenerated into ventricular fibrillation. Subsequently he appeared to be pacing on the monitor. When I examined him he was unresponsive on the respirator but his blood pressure was maintained and he looked like he was pacing on the monitor. Allergies/Medications Allergies: Coded Allergies: No Known Allergies (01/10/17) Home Med List: Aspirin (Ecotrin*) 81 MG TABLET.DR 1 TAB PO DAILY HEART/BLOOD (Reported) Ezetimibe (Zetia) 10 MG TABLET 1 TAB PO DAILY CHOLESTEROL (Reported) Finasteride 5 MG TABLET 1 TAB PO DAILY PROSTATE (Reported) Furosemide 40 MG TABLET 0.5 TAB PO DAILY DIURETIC (Reported) Gabapentin 300 MG CAPSULE 1 CAP PO BID NEUROPATHY (Reported) Glipizide (Glipizide ER) 5 MG TAB.ER.24 1 TAB PO DAILY DM (Reported) Lisinopril 10 MG TABLET 1 TAB PO DAILY BP (Reported) Metformin HCl 500 MG TABLET 1 TAB PO BID DM (Reported) Metoprolol Tartrate 25 MG TABLET 1 TAB PO BID HEART/BP (Reported) Prasugrel HCl (Effient) 10 MG TABLET 1 TAB PO DAILY HEART (Reported) Rosuvastatin Calcium (Crestor) 40 MG TABLET 1 TAB PO EOD CHOLESTEROL ( Reported) Tamsulosin HCl 0.4 MG CAP.ER.24H 1 CAP PO DAILY PROSTATE (Reported) Current Medications: Current Medications Sig/Marcso Start time Last Medication Dose Route Stop Time Status Admin Amiodarone HCl/ 360 MG Q12H 01/10 1630 UNVr 01/10 Dextrose IV 1708 N/A 1 UNIT Epinephrine 1 MG ONCE ONE 01/10 1600 UNVr 01/10 IV 01/10 1601 1708 Levetiracetam 500 MG ONCE ONE 01/10 1730 UNir Sodium Chloride 100 ML IV 01/10 1744 Lorazepam 50 MG ONCE ONE 01/10 1715 AC Sodium Chloride 500 ML IV 01/31 1314 Lorazepam 0 .STK-MED ONE 01/10 1649 DC .ROUTE Lorazepam 0.5 MG ONCE ONE 01/10 1630 UNVr 01/10 IV 01/10 1631 1650 Lorazepam 0 .STK-MED ONE 01/10 1626 DC .ROUTE Norepinephrine 4 MG ONCE ONE 01/10 1715 UNir Sodium Chloride 250 ML IV 01/10 1716 Review of Systems Review of Systems: UNOBTAINABLE Past History Travel History Traveled to [place] past 21 day No Medical History Neurological: NONE EENT: NONE Cardiovascular: CAD, STENTS MULTIPLE NE'S DEFIB Respiratory: NONE Gastrointestinal: NONE Hepatic: NONE Endocrine: diabetes Surgical History Surgical History: CABG Psychosocial History ETOH Use: occasional use Exam & Diagnostic Data Vital Signs and I&O Vital Signs Date Time Temp Pulse Resp B/P Pulse O2 O2 Flow FiO2 Ox Delivery Rate 01/10 1721 93.0 86 26 116/58 99 Ventilator 100% 01/10 1708 84 116/58 01/10 1550 100 Physical Exam: This is an elderly man unresponsive on the respirator with no spontaneous movement but having jerking decerebrate seizures. HEENT exam grossly normal, intubated Chest both sides aerating well Heart regular rhythm no murmurs Abdomen soft Extremities no edema Neurologic unresponsive with pinpoint pupils Labs/Wilber Results: Laboratory Tests 01/10 01/10 1602 1600 Blood Gas pH (7.35 - 7.45 PH) 7.11 *L pCO2 (35 - 45 TORR) 35 pO2 (80 - 100 TORR) 73 L HCO3 (21 - 28 MEQ/L) 11 L ABG O2 Sat (Measured) (>96.0 %) 87.0 L Carboxyhemoglobin (1.5 - 5.0 %) 1.0 L O2 Concentration % 100% Respiration Rate (BPM) 16 O2 Delivery Method ESPRIT VENT Vent Mode AC Expiratory Pressure (CMH2O/P) 5 Tidal Volume (CC) 550 Chemistry Sodium (137 - 145 mmol/L) 144 Potassium (3.5 - 5.1 mmol/L) 3.6 Chloride (98 - 107 mmol/L) 108 H Carbon Dioxide (22 - 30 mmol/L) 13 L Anion Gap (5 - 16) 23 H BUN (9 - 20 mg/dL) 17 Creatinine (0.7 - 1.2 mg/dL) 0.9 Estimated GFR (>60 ml/min) > 60 BUN/Creatinine Ratio (7 - 25 %) 18.9 Glucose (65 - 99 mg/dL) 251 H Calcium (8.4 - 10.2 mg/dL) 8.7 Magnesium (1.6 - 2.3 mg/dL) 2.4 H Total Bilirubin (0.2 - 1.3 mg/dL) 0.6 AST (17 - 59 U/L) 374 H ALT (21 - 72 U/L) 327 H Alkaline Phosphatase (< 127 U/L) 86 Troponin I (<0.11 ng/ml) < 0.01 Total Protein (6.3 - 8.2 g/dL) 6.4 Albumin (3.5 - 5.0 g/dL) 3.4 L Globulin (1.9 - 4.2 gm/dL) 3.0 Albumin/Globulin Ratio (1.1 - 2.2 %) 1.1 Hematology CBC w Diff MAN DIFF ORDERED WBC (4.8 - 10.8 /CUMM) 19.9 H RBC (4.70 - 6.10 /CUMM) 4.57 L Hgb (14.0 - 18.0 G/DL) 13.6 L Hct (42 - 52 %) 40.7 L MCV (80.0 - 94.0 FL) 89.1 MCH (27.0 - 31.0 PG) 29.6 RDW (11.5 - 14.5 %) 14.4 Plt Count (130 - 400 /CUMM) 203 MPV (7.4 - 10.4 FL) 10.2 Gran % (42.2 - 75.2 %) 71.1 Lymphocytes % (20.5 - 51.1 %) 24.7 Monocytes % (1.7 - 9.3 %) 3.1 Eosinophils % (0 - 5 %) 0.9 Basophils % (0.0 - 2.0 %) 0.2 Absolute Granulocytes (1.4 - 6.5 /CUMM) 14.1 H Segmented Neutrophils (42.2 - 75.2 %) 53 Band Neutrophils (0.0 - 5.0 %) 22 H Absolute Lymphocytes (1.2 - 3.4 /CUMM) 4.9 H Lymphocytes (20.5 - 51.1 %) 23 Monocytes (1.7 - 9.3 %) 1 L Absolute Monocytes (0.10 - 0.60 /CUMM) 0.6 Eosinophils (0 - 5.0 %) 1 Absolute Eosinophils (0.0 - 0.7 /CUMM) 0.2 Absolute Basophils (0.0 - 0.2 /CUMM) 0 Platelet Estimate (ADEQUATE) VERIFIED BY SMEAR Poikilocytosis 1+ Fernando Cells 1+ PUBS MCHC (33.0 - 37.0 G/DL) 33.3 Miscellaneous Phlebotomy Draw Site RIGHT RADIAL Other Body Source Fld Total RBCs Counted (%) 100 Diagnostic Data EKG Results EKG shows an irregular rhythm at a rate of 66 with uncertain mechanism, possibly atrial fibrillation. There appears to be at least some ventricular pacing on the EKG. There is a right bundle branch block pattern and old inferolateral myocardial infarction. CXR Results PATIENT: NEVIN UMAÑA PRESENT AGE: 81 PATIENT ACCOUNT NO: [id number] : 36 LOCATION: [facility] ORDERING PHYSICIAN: KIRIT LEGGETT MD SERVICE DATE: 01/10/17 EXAM TYPE: RAD - XRY-PORTABLE CHEST XRAY EXAMINATION: XR PORTABLE CHEST CLINICAL INFORMATION: CHF. Endotracheal tube. Status post CPR and choking episodes. COMPARISON: None TECHNIQUE: Portable AP view of the chest was obtained. FINDINGS: Endotracheal tube terminates 4 cm from the kristy. AICD lead terminates in the right ventricle. AICD unit overlies the left hemithorax. Sternal wires and CABG markers overlie the chest centrally. EKG leads are present. The right lateral aspect of the right hemithorax is not included on this study. Cardiac and mediastinal contours are within normal limits in size. There is pulmonary venous congestion. Patchy alveolar opacities in the left midlung and left lung base may represent asymmetric pulmonary alveolar edema or aspiration. Minimal interstitial edema. No effusions are identified on this study. There is a possible trace pneumothorax at the right lung apex, not completely imaged on this study. No rib fractures are identified, though the right hemithorax is only partially imaged on this study. IMPRESSION: 1. Endotracheal tube in good position. 2. Patchy alveolar opacities in the left midlung and left lung base which could be due to aspiration or early alveolar edema. 3. Probable trace right apical pneumothorax. This critical result was discussed by telephone with Dr. Leggett at 4:51 PM on 01/10/2017 . DICTATED BY: MARLON ALFONSO MD DATE/TIME DICTATED:01/10/171645 DIE MOUNTER:MAGNOLIA DATE/TIME TRANSCRIBED:01/10/171645 CONFIDENTIAL, DO NOT COPY WITHOUT APPROPRIATE AUTHORIZATION. <Electronically signed in Other Vendor System> SIGNED BY: MARLON ALFONSO MD 01/10/171655 Other Results The device was interrogated by the [employer] presented as. This device was implanted in October 2006 10 it is a [employer] single-chamber defibrillator. The device is less than 1% used for pacing. It is in VVI mode. He has had a couple of episodes of nonsustained ventricular tachycardia. One was in June on 06/20/2016. Today the patient had nonsustained ventricular tachycardia which degenerated into ventricular fibrillation at 4:12 PM and he was shocked. This is the only therapy delivered. Assessment/Plan Assessment/Plan This unfortunate 81-year-old man has suffered a cardiac arrest after apparently aspirating and choking on some food at a restaurant. He had one episode of ventricular fibrillation which was treated by his internal defibrillator. He has been started on amiodarone. He is having some myoclonic seizure-like activity. He is being sedated for this. He is going to have therapeutic hypothermia protocol instituted. From a cardiac standpoint I recommend continuing him on amiodarone drip since he had a documented ventricular fibrillation episode. Once he is fully loaded with amiodarone we can probably hold it unless he has further arrhythmias, but we will make further decisions on this tomorrow. An echocardiogram will be helpful and has been ordered. Of course the radford to his treatment will be his neurologic status, which will be monitored closely over the next 24-48 hours. Consult Acknowledgment - Thank you for your consult request.
--- NOTE | 2017-01-10 17:39 | NUR ---
HOUSE STAFF AT BEDSIDE, ATIVAN GTT STARTED AT .03MG/KG/HR.
--- NOTE | 2017-01-10 17:47 | NUR ---
TISH INGRAM TO BEDSIDE TO PLACE CENTRAL LINE
--- NOTE | 2017-01-10 17:52 | Admission Certification ---
Admission Certification Certification Statement - As attending physician, I certify that at the time of - admission, based on clinical presentation, severity of - symptoms, need for further diagnostic testing and - therapeutic interventions, and risk of adverse outcomes - without in-hospital treatment, in my clinical assessment, - this patient requires an acute hospital stay for a minimum - of two nights or longer. I have also considered psychsocial - factors such as support system, advanced age, financial - issues, cognitive issues, and failed out-patient treatments, - past re-admission history, safety of patient, and lack of - compliance as applicable. Specific rationale supporting this admission is: Post cardiac arrest, on mechanical ventilation, unresponsive, possible anoxic brain injury.
--- NOTE | 2017-01-10 18:03 | NUR ---
PT APPEARED TO OF BEEN DEFIBRILLATED BY INTERNAL DEFIB, +PULSES, BP 122/74.
--- NOTE | 2017-01-10 18:13 | NUR ---
PT CONTINUES TO HAVE SEIZURE LIKE ACTIVITY, ATIVAN GTT INCREASED TO 3MG/HR PER PROTOCOL
--- NOTE | 2017-01-10 18:18 | NUR ---
PT HAS BED ASSIGNMENT 104
[2017-01-10 19:06] LABS: PT 12.7 SEC (9.4-12.5); PTT 32 SEC (25-37)
--- NOTE | 2017-01-10 19:40 | NUR ---
RECIEVED PT FROM ER. PT SEDATED ON ATIVAN 4MG/HR, JERKING OF EXTREMITIES NOTED, RESPONSE TO PAINFUL STIMULI, DOES NOT FOLLOW COMMANDS. DECORT POSTURING NOTED. AMIODARONE 33.3ML/HR. LEVOPHED AT 5MCG/MIN. AXILLARY TEMP 98.0. SR BBB 80'S. BP 152/78. VENT AC/26, TV 550 100% PEEP 5 O2 SAT 98%, LEFT LUNG FIELD RHONCHI, R LUNG FIELD CLEAR. TONG DEEP SECRETIONS- RESP CULTURE SENT. +BS OGT AT 75CM. FC IN PLACE, MINIMAL URINE SEDIMENT. SKIN INTACT, EXTREMITIES COOL TO TOUCH +PULSES, NO EDEMA NOTED. RIJ TLC CLAMPED- AWAITING CONFIRMATION FOR USE. RIJ TLC LEAKING BLOOD, SATURATED THROUGH MULTIPLE GAUZE MD UNGER AT BEDSIDE, STATES TO REINFORCE DRSG- BLEEDING CONTINUES.
--- NOTE | 2017-01-10 20:20 | CT SCAN REPORT ---
EXAMINATION: CT HEAD WITHOUT CONTRAST CLINICAL INFORMATION: Status post choking episode with decerebrate posturing. COMPARISON: None. TECHNIQUE: Contiguous axial imaging was performed from the skull base to vertex without intravenous contrast. DLP: 1245 mGy-cm. FINDINGS: There is no evidence of acute intracranial hemorrhage or territorial infarction. No abnormal mass effect or midline shift is seen. [place] to white matter differentiation is well preserved. No extra-axial fluid collections are identified. No hydrocephalus. Proportional prominence of the ventricles and sulcal spaces is consistent with moderate volume loss. Confluent periventricular and deep white matter hypoattenuation is consistent with severe small vessel ischemic changes. 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 The osseous structures and soft tissues are normal. The mastoid air cells and visualized portions of the paranasal sinuses are well aerated. IMPRESSION: No acute intracranial pathology. No intracranial hemorrhage. [place] to white matter differentiation is maintained with severe small vessel ischemic changes. 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
--- NOTE | 2017-01-10 20:36 | CT SCAN REPORT ---
EXAMINATION: CT CHEST WITHOUT CONTRAST CLINICAL INFORMATION: Aspiration pneumonia. ET tube assessment. COMPARISON: Portable chest 01/10/2017 TECHNIQUE: Multidetector volumetric CT imaging of the chest was done. Axial MIP volume rendering provided. Sagittal and coronal reformatted images were obtained. DLP: 321.72 mGy-cm FINDINGS: LUNGS: Endotracheal tube in place proximally 2.5 cm above the kristy. Central bronchial airways are open. There is patchy and consolidative airspace disease at the dependent lung in the right and left upper lobe and at both lung bases. There is bronchial wall thickening most pronounced at the lower lobe. There is a patchy parenchymal infiltrate in the subpleural lung and the left upper lobe anteriorly, sagittal image 29. MEDIASTINUM: Vascular wall calcifications of aorta and coronary arteries. Pacemaker leads in right atrium and right ventricle. Nasogastric tube passing into the stomach. PLEURA: Small bilateral pleural effusions layering dependently in the lungs. AXILLA: No lymphadenopathy. UPPER ABDOMEN: Unremarkable. OSSEOUS STRUCTURES: Degenerative change of the spine with multilevel disc height narrowing and endplate bridging spurs. Status post median sternotomy. IMPRESSION: 1. Dependent by basilar atelectasis infiltrate with air bronchograms. Small patchy parenchymal infiltrate in the anterior left upper lobe. 2. Small dependent bilateral pleural effusions. 3. Endotracheal tube catheter approximately 2.5 cm above kristy. Nasogastric tube in stomach. Pacemaker leads in right atrium and right ventricle.
--- NOTE | 2017-01-10 21:48 | RADIOLOGY REPORT ---
EXAMINATION: XR PORTABLE CHEST CLINICAL INFORMATION: Central line pulled back. COMPARISON: Earlier today. TECHNIQUE: Portable AP view of the chest was obtained. FINDINGS: Endotracheal tube terminates 5.5 cm above the kristy. Right internal jugular central venous catheter terminates over the mid SVC. Left chest wall AICD/pacer is unchanged. Median sternotomy wires appear intact. Enteric tube extends into the stomach. The lungs are well expanded. Small bilateral pleural effusions with patchy opacities, left greater than right. No pneumothorax. The cardiomediastinal silhouette is unchanged, with a calcified aorta. IMPRESSION: 1. Endotracheal tube terminating 5.5 cm above the kristy. 2. Small bilateral pleural effusions with airspace opacities, left greater than right. This is similar to previous imaging. 3. Right internal jugular central venous catheter terminates over the mid SVC.
--- NOTE | 2017-01-10 22:00 | NUR ---
2000=HYPOTHERMIA PROTOCOL INITATED. RECTAL TEMP 97.0 2200= THERAPEUTIC RANGE MET- TEMP 92.5. COOLING BLANKET MAINTAINED FOR TEMP RANGE 90-93.
--- NOTE | 2017-01-10 23:00 | NUR ---
HR DOWN TO 46, PROPOFOL TITRATED DOWN. MD UNGER AT BESIDE, NO NEW ORDERS.
[2017-01-11] VITALS: BP 84/44
[2017-01-11 01:35] LABS: ABSOLUTE BASOPHIL COUNT 0 /CUMM (0.0-0.2); ABSOLUTE EOSINOPHIL COUNT 0 /CUMM (0.0-0.7); BASOPHIL % 0 % (0.0-2.0); EOSINOPHIL % 0 % (0-5); MEAN CORPUSCULAR HGB 29.9 PG (27.0-31.0)
[2017-01-11 01:47] LABS: ABSOLUTE GRANULOCYTE CT 23.3 /CUMM (1.4-6.5); ABSOLUTE LYMPH COUNT 0.5 /CUMM (1.2-3.4); ABSOLUTE MONOCYTE COUNT 1.3 /CUMM (0.10-0.60); GRANULOCYTE % 92.8 % (42.2-75.2); MEAN CORPUSCULAR HGB CONC 34.3 G/DL (33.0-37.0); MEAN CORPUSCULAR VOLUME 87.1 FL (80.0-94.0); MEAN PLATELET VOLUME 9.2 FL (7.4-10.4); PLATELET COUNT 182 /CUMM (130-400); RED BLOOD CELL CT 3.78 /CUMM (4.70-6.10); WHITE BLOOD CELL COUNT 25.2 /CUMM (4.8-10.8)
[2017-01-11 01:51] LABS: HEMATOCRIT 32.9 % (42-52)
--- NOTE | 2017-01-11 02:17 | NUR ---
PT CONTINUES TO LEAK BLOOD AROUND RIJ TLC. SERO TO BEDSIDE PLACED 2 STITCHES, BLEEDING HAS APPEARED TO STOP. WILL CONT TO MONITOR.
[2017-01-11 02:21] LABS: PT 16.2 SEC (9.4-12.5); PTT 33 SEC (25-37)
--- NOTE | 2017-01-11 02:43 | NUR ---
MD PORTILLO MADE AWARE, HR DOWN TO 45. LEVOPHED AT 13MCG/MIN. CVP 5. PROPOFOL TITRATED DOWN. NOW AT 15MCG/KGMIN. PER MD ORDER GIVE 1000ML NS BOLUS. WILL CONT TO MONITOR.
--- NOTE | 2017-01-11 04:37 | Event Note ---
Event Note Event Note: Recent DIC panel reviewed, I personally spoke with Dr. Bal at 4:25 AM. He recommends to recheck the DIC panel in 6-8 hrs, if the Fibrinogen level falls below 100, start cryo. He will see the patient in consultation.
--- NOTE | 2017-01-11 07:09 | Cons- CRCU ---
See Addendum General Information and HPI Consulting Request Date of Consult: 01/11/17 Requested By: Dr Mcdermott Reason for Consult: Post CPR, intubated, on hypothermia protocol Source of Information: family, Exam Limitations: intubated patient, post CPR History of Present Illness: 81-year-old male with past medical history of diabetes mellitus, hypertension, coronary artery disease status post open heart surgery more than 20 years back, h/o VFib s/p defibrillator, hyperlipidemia, BPH was brought in by ambulance with continuing current pulmonary resuscitation. Patient was intubated when I went to take history in the emergency department. History is provided by patient's . According to patient's , both patient and his were having lunch in a restaurant at around 2:30 PM earlier today when he stopped eating, was staring ahead, had an open mouth, and stopped talking. He was unable to respond to commands. People in the restaurant tried ?Heimlich maneuver which was unsuccessful to bring out anything, 911 was called. She remembers one of the people in the restaurant mentioning him turning blue and not having pulse. The paramedics brought him to the hospital via ambulance providing CPR. CPR was continued in the emergency department, received epinephrine initially and later Levophed is ongoing. He has been intubated. He was brought to the ICU yesterday evening and has been intubated, has had few defibrillations and seizure activities overnight. , son, daughter are present with him and have been explained about his condition. Allergies/Medications Allergies: Coded Allergies: No Known Allergies (01/10/17) Home Med List: Aspirin (Ecotrin*) 81 MG TABLET.DR 1 TAB PO DAILY HEART/BLOOD (Reported) Ezetimibe (Zetia) 10 MG TABLET 1 TAB PO DAILY CHOLESTEROL (Reported) Finasteride 5 MG TABLET 1 TAB PO DAILY PROSTATE (Reported) Furosemide 40 MG TABLET 0.5 TAB PO DAILY DIURETIC (Reported) Gabapentin 300 MG CAPSULE 1 CAP PO BID NEUROPATHY (Reported) Glipizide (Glipizide ER) 5 MG TAB.ER.24 1 TAB PO DAILY DM (Reported) Lisinopril 10 MG TABLET 1 TAB PO DAILY BP (Reported) Metformin HCl 500 MG TABLET 1 TAB PO BID DM (Reported) Metoprolol Tartrate 25 MG TABLET 1 TAB PO BID HEART/BP (Reported) Prasugrel HCl (Effient) 10 MG TABLET 1 TAB PO DAILY HEART (Reported) Rosuvastatin Calcium (Crestor) 40 MG TABLET 1 TAB PO EOD CHOLESTEROL ( Reported) Tamsulosin HCl 0.4 MG CAP.ER.24H 1 CAP PO DAILY PROSTATE (Reported) Review of Systems Review of Systems Constitutional: Reports: see HPI. EENTM: Reports: no symptoms. Cardiovascular: Reports: no symptoms. Respiratory: Reports: no symptoms. GI: Reports: no symptoms. Genitourinary: Reports: no symptoms. Musculoskeletal: Reports: no symptoms. Skin: Reports: no symptoms. Neurological/Psychological: Reports: no symptoms. Hematologic/Endocrine: Reports: no symptoms. All Other Systems: Reviewed and Negative Past History Travel History Traveled to [place] past 21 day No Medical History Blood Transfusion Hx: No Neurological: NONE EENT: NONE Cardiovascular: CAD, hypertension, hyperlipidemia, CARDIAC CATH OPEN HEART SX PACEMAKER VTACH Respiratory: NONE Gastrointestinal: NONE Hepatic: NONE Renal: benign prost hyperplasia Musculoskeletal: NONE Psychiatric: NONE Endocrine: diabetes Blood Disorders: NONE Cancer(s): NONE TRAINING DESIGNER/Reproductive: NONE Other Medical Hx: ? Peripheral Vascular Disease Surgical History Surgical History: vascular procedure ?Bypass in lower part of the body CABG in Psychosocial History Where Do You Live? Home Who Do You Live With? spouse Services at Home: None Primary Language: Malay Smoking Status: Former Smoker ETOH Use: occasional use Functional Ability ADLs Needs Assist: dressing, eating, toileting, bathing. Ambulation: non-ambulatory, wheelchair-bound Exam & Diagnostic Data Last 24 Hrs of Vital Signs/I&O Vital Signs Date Time Temp Pulse Resp B/P Pulse O2 O2 Flow FiO2 Ox Delivery Rate 01/11 1200 100 Ventilator 60% 01/11 1117 52 125/44 01/11 1115 60 01/11 0956 60 116/47 01/11 0815 80 01/11 0800 100 Ventilator 100% 01/11 0800 91.8 57 28 100/50 100 Ventilator 100% 01/11 0551 100 01/11 0546 46 109/44 01/11 0521 47 109/40 01/11 0400 100 Ventilator 100% 01/11 0304 100 01/11 0045 100 01/11 0008 48 95/49 01/11 0000 89.2 48 28 84/44 100 Ventilator 100% 01/11 0000 100 Ventilator 100% 01/10 2216 100 01/10 2122 82 128/60 01/10 2015 100 01/10 2000 97 Ventilator 100% 01/10 1844 84 26 124/79 100 Ventilator 100% 01/10 1812 80 86 144/68 96 Ventilator 100% 01/10 1804 93 26 122/74 97 Ventilator 100% 01/10 1757 94.0 85 26 126/71 07 Ventilator 100% 01/10 1754 94.0 84 26 126/71 98 Ventilator 100% 01/10 1747 85 116/58 01/10 1740 94.0 84 26 122/74 98 Ventilator 100% 01/10 1730 94.0 86 26 126/71 98 Ventilator 100% 01/10 1721 93.0 86 116/58 99 Ventilator 100% 01/10 1708 84 11658 01/10 1550 100 Intake & Output 01/11 1600 01/11 0800 01/11 0000 Intake Total 3573 2015 Output Total 450 90 Balance 3123 1926 Intake, IV 3573 2015 Intake, Oral 0 0 Number 0 0 Bowel Movements Output, 150 0 Gastric Drainage Output, Urine 300 90 Patient 68.152 kg 68.152 kg 66.763 kg Weight Physical Exam General Appearance: sedated, intubated, ongoing therapeutic hypothermia protocol Head: atraumatic, normal appearance Eyes: Bilateral: other (b/l pin point pupil, no reflex). Ears, Nose, Throat: intubated, so cannot examine throat Neck: normal inspection Respiratory: intubated, clear lung sounds b/l, no wheezes Cardiovascular: regular rate/rhythm, bradycardia Peripheral Pulses: 3+ radial (R), 3+ radial (L) Gastrointestinal: normal bowel sounds Neurologic/Psych: absent corneal reflex b/l, tone of limbs normal b/l, not increased, no decerebrate posturing, occassional (almost every 20secs) he has twitching of his upper limbs b/l, absent doll's eye phenomenon Skin: cold to touch, on hypothermia protocol Last 48 Hrs of Labs/Wilber: Laboratory Tests 01/11/17 0945: Anion Gap 10, Estimated GFR > 60, Glucose 135 H, Lactic Acid 4.1 H, Calcium 7.4 L, Phosphorus 2.5, Magnesium 1.6, Total Bilirubin 0.6, AST 207 H, ALT 191 H, Albumin 2.4 L 01/11/17 0650: Anion Gap 14, Estimated GFR > 60, Glucose 195 H, Calcium 7.3 L, Phosphorus 3.3 , Magnesium 1.6, Total Bilirubin 0.6, AST 242 H, ALT 204 H, Troponin I 0.77 *H , Albumin 2.4 L, Fibrinogen Activity 144 L, Fibrin Degrad Products > 40 ug/ml H, D-Dimer > 5250 H 01/11/17 0105: Anion Gap 15, Estimated GFR > 60, Glucose 269 H, Calcium 7.7 L, Phosphorus 3.8 , Magnesium 1.8, Total Bilirubin 0.7, AST 291 H, ALT 252 H, Albumin 2.8 L, PT 16.2 H, INR 1.55 H, APTT 33, Fibrinogen Activity 105 L, Fibrin Degrad Products > 40 ug/ml H, D-Dimer > 5250 H, CBC w Diff MAN DIFF ORDERED, RBC 3.78 L, MCV 87.1, MCH 29.9, RDW 14.0, MPV 9.2, Gran % 92.8 H, Lymphocytes % 1.9 L, Monocytes % 5.3, Eosinophils % 0, Basophils % 0 L, Absolute Granulocytes 23.3 H, Segmented Neutrophils 83 H, Band Neutrophils 10 H, Absolute Lymphocytes 0.5 L, Lymphocytes 5 L, Monocytes 2, Absolute Monocytes 1.3 H, Absolute Eosinophils 0, Absolute Basophils 0, Platelet Estimate ADEQUATE, Poikilocytosis 2+, [place] Cells 2+, PUBS MCHC 34.3 01/11/17 0045: pH 7.24 *L, pCO2 27 L, pO2 128 H, HCO3 11 L, ABG O2 Sat (Measured) 98.0, P-50 (Temp Corrected) N, Carboxyhemoglobin 0.3 L, O2 Concentration % 100, Respiration Rate 28, O2 Delivery Method VENT, Vent Mode A/C, Expiratory Pressure 5, Tidal Volume 550, Phlebotomy Draw Site RIGHT RADIAL 01/10/175: Anion Gap 17 H, Estimated GFR > 60, Glucose 287 H, Calcium 8.1 L, Phosphorus 4.3, Magnesium 1.9, Total Bilirubin 0.6, AST 329 H, ALT 284 H, Troponin I 0.75 *H, Albumin 3.0 L 01/10/17 1950: pH 7.26 *L, pCO2 29 L, pO2 96, HCO3 13 L, ABG O2 Sat (Measured) 95.0 L, P-50 (Temp Corrected) N, Carboxyhemoglobin 0.3 L, O2 Concentration % 100%, Temperature 98.0, Respiration Rate 26, O2 Delivery Method ESPRIT, Vent Mode AC, Expiratory Pressure 5, Tidal Volume 550, Phlebotomy Draw Site RIGHT RADIAL 01/10/17 1820: Urine Color YEL, Urine Clarity HAZY H, Urine pH 6.0, Ur Specific [place] >= 1.030, Urine Protein >=300 H, Urine Ketones NEG, Urine Nitrite NEG, Urine Bilirubin NEG, Urine Urobilinogen 1.0, Ur Leukocyte Esterase NEG, Ur Microscopic SEDIMENT EXAMINED, Urine RBC 15-25 H, Ur Epithelial Cells RARE, Urine Bacteria MOD H, Granular Casts 5-10 H, Urine Hemoglobin LARGE H, Urine Glucose NEG 01/10/17 1602: Anion Gap 23 H, Estimated GFR > 60, BUN/Creatinine Ratio 18.9, Glucose 251 H, Calcium 8.7, Phosphorus 8.4 H, Magnesium 2.4 H, Total Bilirubin 0.6, AST 374 H, ALT 327 H, Alkaline Phosphatase 86, Troponin I < 0.01, Total Protein 6.4, Albumin 3.4 L, Globulin 3.0, Albumin/Globulin Ratio 1.1, PT 12.7 H, INR 1.21 H, APTT 32, CBC w Diff MAN DIFF ORDERED, RBC 4.57 L, MCV 89.1, MCH 29.6, RDW 14.4, MPV 10.2, Gran % 71.1, Lymphocytes % 24.7, Monocytes % 3.1, Eosinophils % 0.9, Basophils % 0.2, Absolute Granulocytes 14.1 H, Segmented Neutrophils 53, Band Neutrophils 22 H, Absolute Lymphocytes 4.9 H, Lymphocytes 23, Monocytes 1 L, Absolute Monocytes 0.6, Eosinophils 1, Absolute Eosinophils 0.2, Absolute Basophils 0, Platelet Estimate VERIFIED BY SMEAR, Poikilocytosis 1+, [place] Cells 1+, PUBS MCHC 33.3, Fld Total RBCs Counted 100 01/10/17 1600: pH 7.11 *L, pCO2 35, pO2 73 L, HCO3 11 L, ABG O2 Sat (Measured) 87.0 L, Carboxyhemoglobin 1.0 L, O2 Concentration % 100%, Respiration Rate 16, O2 Delivery Method ESPRIT VENT, Vent Mode AC, Expiratory Pressure 5, Tidal Volume 550, Phlebotomy Draw Site RIGHT RADIAL Assessment/Plan Impression/Plan: 81-year-old male with past medical history of diabetes mellitus, hypertension, coronary artery disease status post open heart surgery more than 20 years back, h/o VFib s/p defibrillator, hyperlipidemia, BPH was brought in by ambulance with continuing current pulmonary resuscitation. Continued cardiopulmonary resuscitation in the emergency department. Received epinephrine. Central line was put in the ED and was getting levophed beside other medication. CT head did not show any bleed or new changes. Currently, he is on hypothermia protocol, starting yesterday 10pm. -Continuing the protocol as planned earlier. neurology -anoxic brain injury -corneal reflex, doll's eye phenomenon absent, poor deep tendon reflex, tone normal b/l -myoclonic seizures despite keppra and propofol -depacon 1 gm x2 given, and propofol increased to 40 today, seizures under control now -has keppra scheduled BID -has depacon 500mg q8 from this evening -EEG pending -appreciate neurology consult cardiology -defibrillator interrogated dy Dr Bermudez and found that he had VT and vfib before he got defibrillated yesterday afternoon -BP coming up after Levophed and amiodarone -Dr Bermudez will try increasing his heart rate by changing his defib setting pulmonology -is intubated hem -has DIC with fibrinogen >100 today -checking q6-8hrs -blood transfusion and cryo if bleeding -watch for infection -cryo ppt if fibrinogen<100 -appreciate heme consult ID -on Unasyn as proplylaxis DVT ppx: ALPS Diet: NPO Family ( and daughter) updated about his condition by me. They understand that it is difficult to comment about his functions while he is on hypothermia protocol, but he was critical to begin with yesterday. Conversation about plan of care started and his seems to comprehend more today than yesterday. Dr Mcdermott updated and would talk to the family later as well. Code status: Full code Consult Acknowledgment - Thank you for your consult request.
--- NOTE | 2017-01-11 07:59 | NUR ---
PT IS INTUBATED WITH A 7.5 ETT TO THE R, ON AC 28 500 100% 5, SATS 100%. LUNGS CLR. PT IS NOT OVERBREATHING THE VENT AT THIS TIME. PT IS HAVING FREQUENT BODY JERKING ACTIVITY, PUPILS 2MM AND SLUGGISH, APPEARS TO BE POSTURING INWARDS, SAS 2 ON PROPOFOL AND ATIVAN GTT. PT IS ON THERAPEUTIC HYPOTHERMIA PROTOCOL S/P CARDIAC ARREST. CURRENT TEMP IS 91.8. PT IS HR/RHYTHM/BP SUPPORTED WITH LEVOPHED, ON AMIO GTT, NS AT 200ML/HR. LCW PACER NOTED. ABDOMEN SOFT W FAINT BS. SOMMERS INSITU W SMALL AMT OF LIGHT LEONARD/SEDIMENT URINE. [facility] TLC SITE IS C/D/I. FAMILY PROVIDED WITH EMOTIONAL SUPPORT. NEOB MADE AWARE OF PT.
[2017-01-11 08:00] VITALS: BP 100/50
--- NOTE | 2017-01-11 08:18 | RADIOLOGY REPORT ---
EXAMINATION: XR PORTABLE CHEST CLINICAL INFORMATION: Intubated. COMPARISON: CXR from 01/10/2017 TECHNIQUE: Portable AP view of the chest was obtained. FINDINGS: The ET tube is in satisfactory position at 5.5 cm above the kristy. The tip of the right IJ central venous catheter is in stable position within the mid superior vena cava. The enteric tube extends below the diaphragm, into the stomach, and beyond the [id number]. Again noted is a left prepectoral cardiac pacemaker/AICD with single transvenous lead extending to the apex of the right ventricle. Sternotomy wires are intact. Cardiac silhouette is normal in size. Thoracic aorta is calcified. There is persistent hazy opacity in the lateral aspect of the right upper lobe. Also, there is persistent hazy and streaky opacity in the retrocardiac region of left lower lobe. No new pulmonary findings compared to the prior exam. Again noted are several, mildly displaced right lateral rib fractures. IMPRESSION: 1. Endotracheal tube in satisfactory position at 5.5 cm above the kristy. 2. Pulmonary infiltrates are not appreciably changed compared to 01/10/2017. 3. Multiple, mildly displaced right lateral rib fractures.
--- NOTE | 2017-01-11 08:34 | PN- CRCU ---
Subjective HPI/Critical Care Issues: The patient remains unresponsive (on sedation), on mechanical ventilation and pressors. He remains on 100% oxygen. He continues to have increased twitching/ brief seizure-like activity, despite being loaded with 2 g of Keppra, 500 mg every 8 hours, and an additional 1 g of Keppra. Also, the patient remains on an Ativan drip at 2 mg per hour. Propofol was started for the seizing however he has continued to have jerking movements. The patient remains on the hypothermia protocol and has not had any shivering reported. The patient's labs this morning suggest possible DIC however his platelet count remains within normal limits. The patient did have bleeding at his triple-lumen site which improved with additional sutures in place. He continues to have severe metabolic acidosis. The patient's urine output has slightly picked up. Objective Current Medications: Current Medications Sig/Marcos Start time Last Medication Dose Route Stop Time Status Admin Acetaminophen 1,000 MG Q6P PRN 01/10 181 AC IV Amiodarone HCl/ 360 MG Q12H 01/10 1630 AC 01/11 Dextrose IV 0546 N/A 1 UNIT Ampicillin Sodium/ 0 .STK-MED ONE 01/10 1833 DC Sulbactam Sodium .ROUTE Ampicillin Sodium/ 3,000 MG Q6 01/10 1807 AC 01/11 Sulbactam Sodium IV 0546 Sodium Chloride 100 ML Atropine Sulfate 1 MG .STK-MED ONE 01/10 2259 DC IM 01/10 2300 Epinephrine 1 MG ONCE ONE 01/10 1600 DC 01/10 IV 01/10 1601 1708 Insulin Human Regular 0 Q6 01/10 1816 01/11 SC 0551 Levetiracetam 1,000 MG ONCE ONE 01/11 0630 DC 01/11 Sodium Chloride 100 ML IV 01/11 0644 0646 Levetiracetam 500 MG Q8 01/10 2200 AC 01/11 Sodium Chloride 100 ML IV 0520 Levetiracetam 1,500 MG ONCE ONE 01/10 1815 DC 01/10 Sodium Chloride 100 ML IV 01/10 1830 2223 Levetiracetam 500 MG ONCE ONE 01/10 1730 DC 01/10 Sodium Chloride 100 ML IV 01/10 1744 1834 Lorazepam 50 MG Q16H 01/10 2200 AC Dextrose/Water 500 ML IV Lorazepam 50 MG ONCE ONE 01/10 1715 DC 01/10 Sodium Chloride 500 ML IV 01/31 1314 1732 Lorazepam 0 .STK-MED ONE 01/10 1649 DC .ROUTE Lorazepam 0.5 MG ONCE ONE 01/10 1630 DC 01/10 IV 01/10 1631 1650 Lorazepam 0 .STK-MED ONE 01/10 1626 DC .ROUTE Morphine Sulfate 2 MG Q4P PRN 01/10 1815 AC IV Non-Formulary 0 SEE ADMIN CRITERIA 01/10 1945 DC 01/10 Medication ANY 2115 Norepinephrine 4 MG Q6 01/11 0600 AC 01/11 Sodium Chloride 250 ML IV 0521 Norepinephrine 4 MG Q24H 01/10 2200 DC 01/11 Sodium Chloride 250 ML IV 0008 Norepinephrine 8 MG ONCE ONE 01/10 1745 DC 01/10 Sodium Chloride 250 ML IV 01/11 0614 1747 Norepinephrine 4 MG ONCE ONE 01/10 1715 DC 01/10 Sodium Chloride 250 ML IV 01/12 1914 1732 Pantoprazole Sodium 0 .STK-MED ONE 01/10 1833 DC IV Pantoprazole Sodium 40 MG DAILY 01/10 1810 AC 01/10 IV 1834 Propofol 1,000 MG Q8H 01/10 2200 AC 01/11 N/A 100 ML IV 0548 Propofol 1,000 MG .STK-MED ONE 01/10 1946 DC IV 01/10 1947 Sodium Chloride 1,000 ML BOLUS ONE 01/11 0230 DC 01/11 IV 01/11 0429 0228 Sodium Chloride 500 ML BOLUS ONE 01/10 2300 DC 01/10 IV 01/10 2359 2300 Sodium Chloride 1,000 ML .Q5H 01/10 1815 01/11 IV 0442 Vital Signs & I&O Last 24 Hrs of Vitals and I&O: Vital Signs Date Time Temp Pulse Resp B/P Pulse O2 O2 Flow FiO2 Ox Delivery Rate 01/11 0551 100 01/11 0546 46 109/44 01/11 0521 47 109/40 01/11 0400 100 Ventilator 100% 01/11 0304 100 01/11 0045 100 01/11 0008 48 95/49 01/11 0000 89.2 48 28 84/44 100 Ventilator 100% 01/11 0000 100 Ventilator 100% 01/10 2216 100 01/102 82 128/60 01/10 2015 100 01/10 2000 97 Ventilator 100% 01/10 1844 84 26 124/79 100 Ventilator 100% 01/10 1812 80 86 144/68 96 Ventilator 100% 01/10 1804 93 26 122/74 97 Ventilator 100% 01/10 1757 94.0 85 26 126/71 07 Ventilator 100% 01/10 1754 94.0 84 26 126/71 98 Ventilator 100% 01/10 1747 85 116/58 01/10 1740 94.0 84 26 122/74 98 Ventilator 100% 01/10 1730 94.0 86 26 126/71 98 Ventilator 100% 01/10 1721 93.0 86 26 116/58 99 Ventilator 100% 01/10 1708 84 116/58 01/10 1550 100 Intake & Output 01/11 1600 01/11 0800 01/11 0000 Intake Total 3573 2015 Output Total 450 90 Balance 3123 1926 Intake, IV 3573 2015 Intake, Oral 0 0 Number 0 0 Bowel Movements Output, 150 0 Gastric Drainage Output, Urine 300 90 Patient 147 lb Weight Physical Exam General Appearance intubated, sedated Skin cool to touch, left hand has melanotic lesion about 2x3 cm irregular HEENT Atraumatic, pupils sluggish to react Neck supple Cardiovascular Regular Rate, S1 and S2 heard Lungs bilateral anterior rhonchi heard, the lungs expand symmetrically and the trachea is midline Abdomen Soft, absent bowel sound, nontender Extremities cold to touch, no edema Results Last 24 Hrs of Lab Results: Laboratory Tests 01/11/17 0650: Anion Gap 14, Estimated GFR > 60, Glucose 195 H, Calcium 7.3 L, Phosphorus 3.3 , Magnesium 1.6, Total Bilirubin 0.6, AST 242 H, ALT 204 H, Troponin I 0.77 *H , Albumin 2.4 L, Fibrinogen Activity Pending, Fibrin Degrad Products Pending, D -Dimer Pending 01/11/17 0105: Anion Gap 15, Estimated GFR > 60, Glucose 269 H, Calcium 7.7 L, Phosphorus 3.8 , Magnesium 1.8, Total Bilirubin 0.7, AST 291 H, ALT 252 H, Albumin 2.8 L, PT 16.2 H, INR 1.55 H, APTT 33, Fibrinogen Activity 105 L, Fibrin Degrad Products > 40 ug/ml H, D-Dimer > 5250 H, CBC w Diff MAN DIFF ORDERED, RBC 3.78 L, MCV 87.1, MCH 29.9, RDW 14.0, MPV 9.2, Gran % 92.8 H, Lymphocytes % 1.9 L, Monocytes % 5.3, Eosinophils % 0, Basophils % 0 L, Absolute Granulocytes 23.3 H, Segmented Neutrophils 83 H, Band Neutrophils 10 H, Absolute Lymphocytes 0.5 L, Lymphocytes 5 L, Monocytes 2, Absolute Monocytes 1.3 H, Absolute Eosinophils 0, Absolute Basophils 0, Platelet Estimate ADEQUATE, Poikilocytosis 2+, [place] Cells 2+, PUBS MCHC 34.3 01/11/17 0045: pH 7.24 *L, pCO2 27 L, pO2 128 H, HCO3 11 L, ABG O2 Sat (Measured) 98.0, P-50 (Temp Corrected) N, Carboxyhemoglobin 0.3 L, O2 Concentration % 100, Respiration Rate 28, O2 Delivery Method VENT, Vent Mode A/C, Expiratory Pressure 5, Tidal Volume 550, Phlebotomy Draw Site RIGHT RADIAL 01/10/17 2235: Anion Gap 17 H, Estimated GFR > 60, Glucose 287 H, Calcium 8.1 L, Phosphorus 4.3, Magnesium 1.9, Total Bilirubin 0.6, AST 329 H, ALT 284 H, Troponin I 0.75 *H, Albumin 3.0 L 01/10/17 1950: pH 7.26 *L, pCO2 29 L, pO2 96, HCO3 13 L, ABG O2 Sat (Measured) 95.0 L, P-50 (Temp Corrected) N, Carboxyhemoglobin 0.3 L, O2 Concentration % 100%, Temperature 98.0, Respiration Rate 26, O2 Delivery Method ESPRIT, Vent Mode AC, Expiratory Pressure 5, Tidal Volume 550, Phlebotomy Draw Site RIGHT RADIAL 01/10/17 1820: Urine Color YEL, Urine Clarity HAZY H, Urine pH 6.0, Ur Specific [place] >= 1.030, Urine Protein >=300 H, Urine Ketones NEG, Urine Nitrite NEG, Urine Bilirubin NEG, Urine Urobilinogen 1.0, Ur Leukocyte Esterase NEG, Ur Microscopic SEDIMENT EXAMINED, Urine RBC 15-25 H, Ur Epithelial Cells RARE, Urine Bacteria MOD H, Granular Casts 5-10 H, Urine Hemoglobin LARGE H, Urine Glucose NEG 01/10/17 1602: Anion Gap 23 H, Estimated GFR > 60, BUN/Creatinine Ratio 18.9, Glucose 251 H, Calcium 8.7, Phosphorus 8.4 H, Magnesium 2.4 H, Total Bilirubin 0.6, AST 374 H, ALT 327 H, Alkaline Phosphatase 86, Troponin I < 0.01, Total Protein 6.4, Albumin 3.4 L, Globulin 3.0, Albumin/Globulin Ratio 1.1, PT 12.7 H, INR 1.21 H, APTT 32, CBC w Diff MAN DIFF ORDERED, RBC 4.57 L, MCV 89.1, MCH 29.6, RDW 14.4, MPV 10.2, Gran % 71.1, Lymphocytes % 24.7, Monocytes % 3.1, Eosinophils % 0.9, Basophils % 0.2, Absolute Granulocytes 14.1 H, Segmented Neutrophils 53, Band Neutrophils 22 H, Absolute Lymphocytes 4.9 H, Lymphocytes 23, Monocytes 1 L, Absolute Monocytes 0.6, Eosinophils 1, Absolute Eosinophils 0.2, Absolute Basophils 0, Platelet Estimate VERIFIED BY SMEAR, Poikilocytosis 1+, [place] Cells 1+, PUBS MCHC 33.3, Fld Total RBCs Counted 100 01/10/17 1600: pH 7.11 *L, pCO2 35, pO2 73 L, HCO3 11 L, ABG O2 Sat (Measured) 87.0 L, Carboxyhemoglobin 1.0 L, O2 Concentration % 100%, Respiration Rate 16, O2 Delivery Method ESPRIT VENT, Vent Mode AC, Expiratory Pressure 5, Tidal Volume 550, Phlebotomy Draw Site RIGHT RADIAL Diagnostic Data CXR Findings: IMPRESSION: 1. Endotracheal tube in satisfactory position at 5.5 cm above the kristy. 2. Pulmonary infiltrates are not appreciably changed compared to 01/10/2017. 3. Multiple, mildly displaced right lateral rib fractures. CT Scan Findings: CT head: No acute intracranial pathology. No intracranial hemorrhage. [place] to white matter differentiation is maintained with severe small vessel ischemic changes. 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 CT chest: 1. Dependent by basilar atelectasis infiltrate with air bronchograms. Small patchy parenchymal infiltrate in the anterior left upper lobe. 2. Small dependent bilateral pleural effusions. 3. Endotracheal tube catheter approximately 2.5 cm above kristy. Nasogastric tube in stomach. Pacemaker leads in right atrium and right ventricle. Impression/Plan Impression/Plan Impression/Plan: Impression: 1. Choking episode, leading to aspiration followed by cardiopulmonary arrest, with persistent hypotension requiring ongoing pressor therapy. 2. Probable anoxic brain injury, with ongoing seizures. 3. Shock liver. 4. No pneumothorax on CT scanning. 5. Multiple cardiac comorbidities. 6. DIC. 7. Positive troponin, likely secondary to demand ischemia in the setting of cardiac arrest. 8. Ventricular tachycardia, on amiodarone. 9. Malnutrition. 10. Respiratory failure secondary to aspiration pneumonia. Recommendations: * Continue hypothermia as per protocol. Continue to monitor labs as per the protocol. * Continue IV Keppra, propofol and Ativan. We will discuss the ongoing twitching movements and decerebrate posturing with neurology to determine if there is another medication that should be started. * Attempt to wean FiO2 down, maintain saturations greater than 92%. * Continue IV fluids however decrease rate to 100 ML per hour. * Attempt to wean Levophed down to off as tolerated. Maintain mean arterial blood pressure greater than 65 mmHg. * Discussed DIC with hematology - will monitor fibrin split products every 8 hours. If the FSP falls below 100, we will give a dose of cryoprecipitate. We will continue to monitor for bleeding. * Follow up culture results. * Continue empiric IV Unasyn. * Check a lactic acid and mixed venous oxygen saturation. * Await cardiology input regarding positive troponin. Continue amiodarone for now. * Continue DVT/GI prophylaxis. * The patient is critically ill and has potential for poor outcome. I have discussed this with the patient's family in detail. For now, they want to continue the patient has full code. * Appreciate all consultants input.
--- NOTE | 2017-01-11 09:04 | Cons- Neurology ---
General Information and HPI Consulting Request Date of Consult: 01/11/17 Requested By: MESFIN SPENCER,Kristopher BRANDON Reason for Consult: Anoxic briain injury, seizures Source of Information: Physicians, Attending and Residents, medical record Exam Limitations: unable to give history History of Present Illness: 81 year old admitted yesterday after choking on food. Heimlich maneuvers were ineffective, CPR instituted when the ambulance crew arrived. Hypotensive on arrival at the emergency department, unresponsive with ongoing seizure activity. The patient is neurologically impaired, wheelchair-bound and requires assistance for ADLs but apparently conversant with only a mild dementia described to staff by the family. Keppra was loaded, 2 g, due to recurrent seizures another gram was loaded and the patient has been maintained on propofol as well as pressors. The hypothermia protocol has been instituted. There are still intermittent bursts of seizure activity when propofol lowered. Blood pressure support has been problematic. Allergies/Medications Allergies: Coded Allergies: No Known Allergies (01/10/17) Home Med List: Aspirin (Ecotrin*) 81 MG TABLET.DR 1 TAB PO DAILY HEART/BLOOD (Reported) Ezetimibe (Zetia) 10 MG TABLET 1 TAB PO DAILY CHOLESTEROL (Reported) Finasteride 5 MG TABLET 1 TAB PO DAILY PROSTATE (Reported) Furosemide 40 MG TABLET 0.5 TAB PO DAILY DIURETIC (Reported) Gabapentin 300 MG CAPSULE 1 CAP PO BID NEUROPATHY (Reported) Glipizide (Glipizide ER) 5 MG TAB.ER.24 1 TAB PO DAILY DM (Reported) Lisinopril 10 MG TABLET 1 TAB PO DAILY BP (Reported) Metformin HCl 500 MG TABLET 1 TAB PO BID DM (Reported) Metoprolol Tartrate 25 MG TABLET 1 TAB PO BID HEART/BP (Reported) Prasugrel HCl (Effient) 10 MG TABLET 1 TAB PO DAILY HEART (Reported) Rosuvastatin Calcium (Crestor) 40 MG TABLET 1 TAB PO EOD CHOLESTEROL ( Reported) Tamsulosin HCl 0.4 MG CAP.ER.24H 1 CAP PO DAILY PROSTATE (Reported) Current Medications: Current Medications Sig/Marcos Start time Last Medication Dose Route Stop Time Status Admin Acetaminophen 1,000 MG Q6P PRN 01/10 1815 AC IV Amiodarone HCl/ 360 MG Q12H 01/10 1630 AC 01/11 Dextrose IV 0546 N/A 1 UNIT Ampicillin Sodium/ 0 .STK-MED ONE 01/10 1833 DC Sulbactam Sodium .ROUTE Ampicillin Sodium/ 3,000 MG Q6 01/10 1807 AC 01/11 Sulbactam Sodium IV 0546 Sodium Chloride 100 ML Atropine Sulfate 1 MG .STK-MED ONE 01/10 2259 DC IM 01/10 2300 Epinephrine 1 MG ONCE ONE 01/10 1600 DC 01/10 IV 01/10 1601 1708 Insulin Human Regular 0 Q6 01/10 1816 AC 01/11 SC 0551 Levetiracetam 1,000 MG ONCE ONE 01/11 0630 DC 01/11 Sodium Chloride 100 ML IV 01/11 0644 0646 Levetiracetam 500 MG Q8 01/10 2200 AC 01/11 Sodium Chloride 100 ML IV 0520 Levetiracetam 1,500 MG ONCE ONE 01/10 1815 DC 01/10 Sodium Chloride 100 ML IV 01/10 1830 2223 Levetiracetam 500 MG ONCE ONE 01/10 1730 ND 01/10 Sodium Chloride 100 ML IV 01/10 1744 1834 Lorazepam 50 MG Q16H 01/10 2200 AC Dextrose/Water 500 ML IV Lorazepam 50 MG ONCE ONE 01/10 1715 ND 01/10 Sodium Chloride 500 ML IV 01/31 1314 1732 Lorazepam 0 .STK-MED ONE 01/10 1649 DC .ROUTE Lorazepam 0.5 MG ONCE ONE 01/10 1630 DC 01/10 IV 01/10 1631 1650 Lorazepam 0 .STK-MED ONE 01/10 1626 DC .ROUTE Morphine Sulfate 2 MG Q4P PRN 01/10 1815 IV Non-Formulary 0 SEE ADMIN CRITERIA 01/10 1945 ND 01/10 Medication ANY 2115 Norepinephrine 4 MG Q6 01/11 0600 AC 01/11 Sodium Chloride 250 ML IV 0521 Norepinephrine 4 MG Q24H 01/10 2200 DC 01/11 Sodium Chloride 250 ML IV 0008 Norepinephrine 8 MG ONCE ONE 01/10 1745 DC 01/10 Sodium Chloride 250 ML IV 01/11 0614 1747 Norepinephrine 4 MG ONCE ONE 01/10 1715 ND 01/10 Sodium Chloride 250 ML IV 01/12 1914 1732 Pantoprazole Sodium 0 .STK-MED ONE 01/10 1833 DC IV Pantoprazole Sodium 40 MG DAILY 01/10 1810 AC 01/10 IV 1834 Propofol 1,000 MG Q8H 01/10 2200 AC 01/11 N/A 100 ML IV 0548 Propofol 1,000 MG .STK-MED ONE 01/10 1946 DC IV 01/10 1947 Sodium Chloride 1,000 ML BOLUS ONE 01/11 0230 DC 01/11 IV 01/11 0429 0228 Sodium Chloride 500 ML BOLUS ONE 01/10 2300 DC 01/10 IV 01/10 2359 2300 Sodium Chloride 1,000 ML .Q5H 01/10 1815 AC 01/11 IV 0442 Review of Systems Review of Systems: Unobtainable Past History Travel History Traveled to [place] past 21 day No Medical History Blood Transfusion Hx: No Neurological: NONE EENT: NONE Cardiovascular: CAD, hypertension, hyperlipidemia, CARDIAC CATH OPEN HEART SX PACEMAKER VTACH Respiratory: NONE Gastrointestinal: NONE Hepatic: NONE Renal: benign prost hyperplasia Musculoskeletal: NONE Psychiatric: NONE Endocrine: diabetes Blood Disorders: NONE Cancer(s): NONE 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 Peripheral Vascular Disease Surgical History Surgical History: vascular procedure ?Bypass in lower part of the body CABG in Psychosocial History Where Do You Live? Home Who Do You Live With? spouse Services at Home: None Primary Language: Spanish Smoking Status: Former Smoker ETOH Use: occasional use Exam & Diagnostic Data Vital Signs and I&O Vital Signs Date Time Temp Pulse Resp B/P Pulse O2 O2 Flow FiO2 Ox Delivery Rate 01/11 0815 80 01/11 0800 100 Ventilator 100% 01/11 0800 91.8 57 28 100/50 100 Ventilator 100% 01/11 0551 100 01/11 0546 46 109/44 01/11 0521 47 109/40 01/11 0400 100 Ventilator 100% 01/11 0304 100 01/11 0045 100 01/11 0008 48 95/49 01/11 0000 89.2 48 28 84/44 100 Ventilator 100% 01/11 0000 100 Ventilator 100% 01/10 2216 100 01/10 2122 82 128/60 01/10 2015 100 01/10 2000 97 Ventilator 100% 01/10 1844 84 26 124/79 100 Ventilator 100% 01/10 1812 80 86 144/68 96 Ventilator 100% 01/10 1804 93 26 122/74 97 Ventilator 100% 01/10 175 94.0 85 26 126/71 07 Ventilator 100% 02/27 1754 94.0 84 126/71 98 Ventilator 100% 01/10 1747 85 116/58 01/10 1740 94.0 84 122/74 98 Ventilator 100% 01/10 1730 94.0 86 126/71 98 Ventilator 100% 01/10 1721 93.0 86 116/58 99 Ventilator 100% 01/10 1708 84 116/58 01/10 1550 100 Intake & Output 01/11 1600 01/11 0800 01/11 0000 Intake Total 3572 2015 Output Total 450 90 Balance 3123 1926 Intake, IV 3572015 Intake, Oral 0 0 Number 0 0 Bowel Movements Output, 150 0 Gastric Drainage Output, Urine 300 90 Patient 147 lb Weight Physical Exam: Lying motionless in ICU, intubated, skin color good, extremities warm, no edema, pedal pulses present. On a cooling blanket. Occasional sudden generalized myoclonic jerks, single or in brief series lasting a few seconds. These appear to occur spontaneously rather than on contact or movement, or respirator drive. Pupils small at about 2 mm, unreactive. Corneal reflexes absent eye laterally. Oculovestibular reflexes absent. No gag response on brief manipulation of the ET tube. No response to pain including supra orbital pressure. Tone normal to decreased. Tendon reflexes trace at the biceps absent at knees, bilateral Babinski signs are present. Remaining elements of the complete neuro exam cannot be performed due to his mental state. Last 48 Hours of Lab Results: Laboratory Tests 01/11 01/11 0650 0105 Chemistry Sodium (137 - 145 mmol/L) 146 H 144 Potassium (3.5 - 5.1 mmol/L) 3.6 3.9 Chloride (98 - 107 mmol/L) 116 H 114 H Carbon Dioxide (22 - 30 mmol/L) 17 L 16 L Anion Gap (5 - 16) 14 15 BUN (9 - 20 mg/dL) 24 H 26 H Creatinine (0.7 - 1.2 mg/dL) 0.8 0.9 Estimated GFR (>60 ml/min) > 60 > 60 Glucose (65 - 99 mg/dL) 195 H 269 H Calcium (8.4 - 10.2 mg/dL) 7.3 L 7.7 L Phosphorus (2.5 - 4.5 mg/dL) 3.3 3.8 Magnesium (1.6 - 2.3 mg/dL) 1.6 1.8 Total Bilirubin (0.2 - 1.3 mg/dL) 0.6 0.7 AST (17 - 59 U/L) 242 H 291 H ALT (21 - 72 U/L) 204 H 252 H Troponin I (<0.11 ng/ml) 0.77 *H Albumin (3.5 - 5.0 g/dL) 2.4 L 2.8 L Coagulation PT (9.4 - 12.5 SEC) 16.2 H INR (0.90 - 1.17) 1.55 H APTT (25 - 37 SEC) 33 Fibrinogen Activity (200 - 393 MG/DL) Pending 105 L Fibrin Degrad Products (< 10 ug/ml) Pending > 40 ug/ml H D-Dimer (70 - 232 ng/ml) Pending > 5250 H Hematology CBC w Diff MAN DIFF ORDERED WBC (4.8 - 10.8 /CUMM) 25.2 H RBC (4.70 - 6.10 /CUMM) 3.78 L Hgb (14.0 - 18.0 G/DL) 11.3 L Hct (42 - 52 %) 32.9 L MCV (80.0 - 94.0 FL) 87.1 MCH (27.0 - 31.0 PG) 29.9 RDW (11.5 - 14.5 %) 14.0 Plt Count (130 - 400 /CUMM) 182 MPV (7.4 - 10.4 FL) 9.2 Gran % (42.2 - 75.2 %) 92.8 H Lymphocytes % (20.5 - 51.1 %) 1.9 L Monocytes % (1.7 - 9.3 %) 5.3 Eosinophils % (0 - 5 %) 0 Basophils % (0.0 - 2.0 %) 0 L Absolute Granulocytes (1.4 - 6.5 /CUMM) 23.3 H Segmented Neutrophils (42.2 - 75.2 %) 83 H Band Neutrophils (0.0 - 5.0 %) 10 H Absolute Lymphocytes (1.2 - 3.4 /CUMM) 0.5 L Lymphocytes (20.5 - 51.1 %) 5 L Monocytes (1.7 - 9.3 %) 2 Absolute Monocytes (0.10 - 0.60 /CUMM) 1.3 H Absolute Eosinophils (0.0 - 0.7 /CUMM) 0 Absolute Basophils (0.0 - 0.2 /CUMM) 0 Platelet Estimate (ADEQUATE) ADEQUATE Poikilocytosis 2+ Fernando Cells 2+ PUBS MCHC (33.0 - 37.0 G/DL) 34.3 01/11 01/10 01/10 0045 2235 1950 Blood Gas pH (7.35 - 7.45 PH) 7.24 *L 7.26 *L pCO2 (35 - 45 TORR) 27 L 29 L pO2 (80 - 100 TORR) 128 H 96 HCO3 (21 - 28 MEQ/L) 11 L 13 L ABG O2 Sat (Measured) (>96.0 %) 98.0 95.0 L P-50 (Temp Corrected) N N Carboxyhemoglobin (1.5 - 5.0 %) 0.3 L 0.3 L O2 Concentration % 100 100% Temperature (97.0 - 100.0 FARH) 98.0 Respiration Rate (BPM) 28 26 O2 Delivery Method VENT ESPRIT Vent Mode A/C AC Expiratory Pressure (CMH2O/P) 5 5 Tidal Volume (CC) 550 550 Chemistry Sodium (137 - 145 mmol/L) 143 Potassium (3.5 - 5.1 mmol/L) 3.8 Chloride (98 - 107 mmol/L) 109 H Carbon Dioxide (22 - 30 mmol/L) 17 L Anion Gap (5 - 16) 17 H BUN (9 - 20 mg/dL) 26 H Creatinine (0.7 - 1.2 mg/dL) 1.0 Estimated GFR (>60 ml/min) > 60 Glucose (65 - 99 mg/dL) 287 H Calcium (8.4 - 10.2 mg/dL) 8.1 L Phosphorus (2.5 - 4.5 mg/dL) 4.3 Magnesium (1.6 - 2.3 mg/dL) 1.9 Total Bilirubin (0.2 - 1.3 mg/dL) 0.6 AST (17 - 59 U/L) 329 H ALT (21 - 72 U/L) 284 H Troponin I (<0.11 ng/ml) 0.75 *H Albumin (3.5 - 5.0 g/dL) 3.0 L Miscellaneous Phlebotomy Draw Site RIGHT RADIAL RIGHT RADIAL 01/10 1820 Urines Urine Color (YEL,AMB,STR) YEL Urine Clarity (CLEAR) HAZY H Urine pH (5.0 - 8.0) 6.0 Ur Specific [place] (1.001 - 1.035) >= 1.030 Urine Protein (NEG,<30 MG/DL) >=300 H Urine Ketones (NEG) NEG Urine Nitrite (NEG) NEG Urine Bilirubin (NEG) NEG Urine Urobilinogen (0.1 - 1.0 EU/dl) 1.0 Ur Leukocyte Esterase (NEG) NEG Ur Microscopic SEDIMENT EXAMINED Urine RBC (0 - 5 /HPF) 15-25 H Ur Epithelial Cells (NONE,FEW) RARE Urine Bacteria (NEG/NONE) MOD H Granular Casts (NONE /LPF) 5-10 H Urine Hemoglobin (NEG) LARGE H Urine Glucose (N MG/DL) NEG 01/10 01/10 1602 1600 Blood Gas pH (7.35 - 7.45 PH) 7.11 *L pCO2 (35 - 45 TORR) 35 pO2 (80 - 100 TORR) 73 L HCO3 (21 - 28 MEQ/L) 11 L ABG O2 Sat (Measured) (>96.0 %) 87.0 L Carboxyhemoglobin (1.5 - 5.0 %) 1.0 L O2 Concentration % 100% Respiration Rate (BPM) 16 O2 Delivery Method ESPRIT VENT Vent Mode AC Expiratory Pressure (CMH2O/P) 5 Tidal Volume (CC) 550 Chemistry Sodium (137 - 145 mmol/L) 144 Potassium (3.5 - 5.1 mmol/L) 3.6 Chloride (98 - 107 mmol/L) 108 H Carbon Dioxide (22 - 30 mmol/L) 13 L Anion Gap (5 - 16) 23 H BUN (9 - 20 mg/dL) 17 Creatinine (0.7 - 1.2 mg/dL) 0.9 Estimated GFR (>60 ml/min) > 60 BUN/Creatinine Ratio (7 - 25 %) 18.9 Glucose (65 - 99 mg/dL) 251 H Calcium (8.4 - 10.2 mg/dL) 8.7 Phosphorus (2.5 - 4.5 mg/dL) 8.4 H Magnesium (1.6 - 2.3 mg/dL) 2.4 H Total Bilirubin (0.2 - 1.3 mg/dL) 0.6 AST (17 - 59 U/L) 374 H ALT (21 - 72 U/L) 327 H Alkaline Phosphatase (< 127 U/L) 86 Troponin I (<0.11 ng/ml) < 0.01 Total Protein (6.3 - 8.2 g/dL) 6.4 Albumin (3.5 - 5.0 g/dL) 3.4 L Globulin (1.9 - 4.2 gm/dL) 3.0 Albumin/Globulin Ratio (1.1 - 2.2 %) 1.1 Coagulation PT (9.4 - 12.5 SEC) 12.7 H INR (0.90 - 1.17) 1.21 H APTT (25 - 37 SEC) 32 Hematology CBC w Diff MAN DIFF ORDERED WBC (4.8 - 10.8 /CUMM) 19.9 H RBC (4.70 - 6.10 /CUMM) 4.57 L Hgb (14.0 - 18.0 G/DL) 13.6 L Hct (42 - 52 %) 40.7 L MCV (80.0 - 94.0 FL) 89.1 MCH (27.0 - 31.0 PG) 29.6 RDW (11.5 - 14.5 %) 14.4 Plt Count (130 - 400 /CUMM) 203 MPV (7.4 - 10.4 FL) 10.2 Gran % (42.2 - 75.2 %) 71.1 Lymphocytes % (20.5 - 51.1 %) 24.7 Monocytes % (1.7 - 9.3 %) 3.1 Eosinophils % (0 - 5 %) 0.9 Basophils % (0.0 - 2.0 %) 0.2 Absolute Granulocytes (1.4 - 6.5 /CUMM) 14.1 H Segmented Neutrophils (42.2 - 75.2 %) 53 Band Neutrophils (0.0 - 5.0 %) 22 H Absolute Lymphocytes (1.2 - 3.4 /CUMM) 4.9 H Lymphocytes (20.5 - 51.1 %) 23 Monocytes (1.7 - 9.3 %) 1 L Absolute Monocytes (0.10 - 0.60 /CUMM) 0.6 Eosinophils (0 - 5.0 %) 1 Absolute Eosinophils (0.0 - 0.7 /CUMM) 0.2 Absolute Basophils (0.0 - 0.2 /CUMM) 0 Platelet Estimate (ADEQUATE) VERIFIED BY SMEAR Poikilocytosis 1+ [place] Cells 1+ PUBS MCHC (33.0 - 37.0 G/DL) 33.3 Miscellaneous Phlebotomy Draw Site RIGHT RADIAL Other Body Source Fld Total RBCs Counted (%) 100 Imaging/Other Studies: Head CT: No acute intracranial pathology. No intracranial hemorrhage. [place] to white matter differentiation is maintained with severe small vessel ischemic changes. 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 Assessment/Plan Assessment: Anoxic brain injury, myoclonic seizures ongoing despite her Keppra loading and propofol at maximum tolerated dose, increases cause hypotension. Absence of all brainstem reflexes is an ominous sign but not definitively predicted in view of hypothermia and sedating medication: Propofol. Recommendations: Load Depacon 1 g IV. If myoclonic jerks persist after an hour or so reloaded with another gram. Maintain Keppra at 1000 mg twice daily Start valproate maintenance with Depacon 500 MG nightly 8 hours If seizures persist would increase propofol and increase pressors to avoid the relative hypotension EEG Follow-up will be provided as needed Consult Acknowledgment - Thank you for your consult request.
--- NOTE | 2017-01-11 10:48 | PN- Cardiology ---
Subjective Subjective: Patient remains sedated, unresponsive, on Levophed and amiodarone. He has been seen by neurology who considers him to have anoxic brain injury with myoclonic seizures and absence of brainstem reflexes. However he is undergoing hypothermic protocol and is on propofol as well so that this may obscure true brain function. His troponin is elevated to 0.77. His EKG shows sinus bradycardia with left bundle branch block. Objective Vital Signs and I&Os Vital Signs Date Time Temp Pulse Resp B/P Pulse O2 O2 Flow FiO2 Ox Delivery Rate 01/11 0956 60 116/47 01/11 0815 80 01/11 0800 100 Ventilator 100% 01/11 08 91.8 57 28 100/50 100 Ventilator 100% 01/11 0551 100 01/11 0546 46 109/44 01/11 0521 47 109/40 01/11 0400 100 Ventilator 100% 01/11 0304 100 01/11 0045 100 01/11 0008 48 95/49 01/11 0000 89.2 48 28 84/44 100 Ventilator 100% 01/11 0000 100 Ventilator 100% 01/10 2216 100 01/10 2122 82 128/60 01/10 2015 100 01/10 2000 97 Ventilator 100% 01/10 1844 84 26 124/79 100 Ventilator 100% 01/10 1812 80 86 144/68 96 Ventilator 100% 01/10 1804 93 26 122/74 97 Ventilator 100% 01/10 1757 94.0 85 26 126/71 07 Ventilator 100% 01/10 1754 94.0 84 26 126/71 98 Ventilator 100% 01/10 1747 85 116/58 01/10 1740 94.0 84 26 122/74 98 Ventilator 100% 01/10 1730 94.0 86 26 126/71 98 Ventilator 100% 01/10 1721 93.0 86 26 116/58 99 Ventilator 100% 01/10 1708 84 116/58 01/10 1550 100 Intake & Output 01/11 1600 01/11 0800 01/11 0000 01/10 1600 01/10 0000 Intake Total 3572015 Output Total 450 90 Balance 3123 1926 Intake, IV 3572015 Intake, Oral 0 0 Number 0 0 Bowel Movements Output, 150 0 Gastric Drainage Output, Urine 300 90 Patient 147 lb Weight Physical Exam: He is unresponsive on the respirator and intubated HEENT grossly normal pupils pinpoint Chest aerating both sides Heart regular bradycardic no murmurs Extremities no edema Neurologic unresponsive Current Medications: Current Medications Sig/Marcos Start time Last Medication Dose Route Stop Time Status Admin Acetaminophen 1,000 MG Q6P PRN 01/10 1815 AC IV Amiodarone HCl/ 360 MG Q12H 01/10 1630 AC 01/11 Dextrose IV 0956 N/A 1 UNIT Ampicillin Sodium/ 0 .STK-MED ONE 01/10 1833 DC Sulbactam Sodium .ROUTE Ampicillin Sodium/ 3,000 MG Q6 01/10 1807 AC 01/11 Sulbactam Sodium IV 0546 Sodium Chloride 100 ML Atropine Sulfate 1 MG .STK-MED ONE 01/10 2259 DC IM 01/10 2300 Epinephrine 1 MG ONCE ONE 01/10 1600 DC 01/10 IV 01/10 1601 1708 Insulin Human Regular 0 Q6 01/10 1816 01/11 SC 0551 Levetiracetam 1,000 MG BID 01/11 1000 AC 01/11 Sodium Chloride 100 ML IV 1018 Levetiracetam 1,000 MG ONCE ONE 01/11 0630 DC 01/11 Sodium Chloride 100 ML IV 01/11 0644 0646 Levetiracetam 500 MG Q8 01/10 2200 DC 01/11 Sodium Chloride 100 ML IV 0520 Levetiracetam 1,500 MG ONCE ONE 01/10 1815 DC 01/10 Sodium Chloride 100 ML IV 01/10 1830 2223 Levetiracetam 500 MG ONCE ONE 01/10 1730 DC 01/10 Sodium Chloride 100 ML IV 01/10 1744 1834 Lorazepam 50 MG Q16H 01/10 2200 AC Dextrose/Water 500 ML IV Lorazepam 50 MG ONCE ONE 01/10 1715 DC 01/10 Sodium Chloride 500 ML IV 01/31 1314 1732 Lorazepam 0 .STK-MED ONE 01/10 1649 DC .ROUTE Lorazepam 0.5 MG ONCE ONE 01/10 1630 DC 01/10 IV 01/10 1631 1650 Lorazepam 0 .STK-MED ONE 01/10 1626 DC .ROUTE Morphine Sulfate 2 MG Q4P PRN 01/10 1815 AC IV Non-Formulary 0 SEE ADMIN CRITERIA 01/10 1945 DC 01/10 Medication ANY 2115 Norepinephrine 4 MG Q6 01/11 0600 AC 01/11 Sodium Chloride 250 ML IV 0521 Norepinephrine 4 MG Q24H 01/10 2200 TX 01/11 Sodium Chloride 250 ML IV 0008 Norepinephrine 8 MG ONCE ONE 01/10 1745 DC 01/10 Sodium Chloride 250 ML IV 01/11 0614 1747 Norepinephrine 4 MG ONCE ONE 01/10 1715 DC 01/10 Sodium Chloride 250 ML IV 01/12 1914 1732 Pantoprazole Sodium 0 .STK-MED ONE 01/10 1833 DC IV Pantoprazole Sodium 40 MG DAILY 01/10 1810 01/11 IV 0957 Propofol 1,000 MG Q8H 01/10 2200 01/11 N/A 100 ML IV 0548 Propofol 1,000 MG .STK-MED ONE 01/10 1946 DC IV 01/10 1947 Sodium Chloride 1,000 ML BOLUS ONE 01/11 0230 DC 01/11 IV 01/11 0429 0228 Sodium Chloride 500 ML BOLUS ONE 01/10 2300 TX 01/10 IV 01/10 2359 2300 Sodium Chloride 1,000 ML .Q5H 01/10 1815 01/11 IV 0956 Valproate Sodium 1,000 MG ONCE ONE 01/11 0945 01/11 Sodium Chloride 100 ML IV 01/11 1044 1003 Results Last 48 Hrs of Labs/Mics: Laboratory Tests 01/11/17 0945: Sodium Pending, Potassium Pending, Chloride Pending, Carbon Dioxide Pending, Anion Gap Pending, BUN Pending, Creatinine Pending, Glucose Pending, Lactic Acid Pending, Calcium Pending, Phosphorus Pending, Magnesium Pending, Total Bilirubin Pending, AST Pending, ALT Pending, Albumin Pending 01/11/17 0650: Anion Gap 14, Estimated GFR > 60, Glucose 195 H, Calcium 7.3 L, Phosphorus 3.3 , Magnesium 1.6, Total Bilirubin 0.6, AST 242 H, ALT 204 H, Troponin I 0.77 *H , Albumin 2.4 L, Fibrinogen Activity 144 L, Fibrin Degrad Products Pending, D- Dimer > 5250 H 01/11/17 0105: Anion Gap 15, Estimated GFR > 60, Glucose 269 H, Calcium 7.7 L, Phosphorus 3.8 , Magnesium 1.8, Total Bilirubin 0.7, AST 291 H, ALT 252 H, Albumin 2.8 L, PT 16.2 H, INR 1.55 H, APTT 33, Fibrinogen Activity 105 L, Fibrin Degrad Products > 40 ug/ml H, D-Dimer > 5250 H, CBC w Diff MAN DIFF ORDERED, RBC 3.78 L, MCV 87.1, MCH 29.9, RDW 14.0, MPV 9.2, Gran % 92.8 H, Lymphocytes % 1.9 L, Monocytes % 5.3, Eosinophils % 0, Basophils % 0 L, Absolute Granulocytes 23.3 H, Segmented Neutrophils 83 H, Band Neutrophils 10 H, Absolute Lymphocytes 0.5 L, Lymphocytes 5 L, Monocytes 2, Absolute Monocytes 1.3 H, Absolute Eosinophils 0, Absolute Basophils 0, Platelet Estimate ADEQUATE, Poikilocytosis 2+, [place] Cells 2+, PUBS MCHC 34.3 01/11/17 0045: pH 7.24 *L, pCO2 27 L, pO2 128 H, HCO3 11 L, ABG O2 Sat (Measured) 98.0, P-50 (Temp Corrected) N, Carboxyhemoglobin 0.3 L, O2 Concentration % 100, Respiration Rate 28, O2 Delivery Method VENT, Vent Mode A/C, Expiratory Pressure 5, Tidal Volume 550, Phlebotomy Draw Site RIGHT RADIAL 01/10/17 2235: Anion Gap 17 H, Estimated GFR > 60, Glucose 287 H, Calcium 8.1 L, Phosphorus 4.3, Magnesium 1.9, Total Bilirubin 0.6, AST 329 H, ALT 284 H, Troponin I 0.75 *H, Albumin 3.0 L 01/10/17 1950: pH 7.26 *L, pCO2 29 L, pO2 96, HCO3 13 L, ABG O2 Sat (Measured) 95.0 L, P-50 (Temp Corrected) N, Carboxyhemoglobin 0.3 L, O2 Concentration % 100%, Temperature 98.0, Respiration Rate 26, O2 Delivery Method ESPRIT, Vent Mode AC, Expiratory Pressure 5, Tidal Volume 550, Phlebotomy Draw Site RIGHT RADIAL 01/10/17 1820: Urine Color YEL, Urine Clarity HAZY H, Urine pH 6.0, Ur Specific [place] >= 1.030, Urine Protein >=300 H, Urine Ketones NEG, Urine Nitrite NEG, Urine Bilirubin NEG, Urine Urobilinogen 1.0, Ur Leukocyte Esterase NEG, Ur Microscopic SEDIMENT EXAMINED, Urine RBC 15-25 H, Ur Epithelial Cells RARE, Urine Bacteria MOD H, Granular Casts 5-10 H, Urine Hemoglobin LARGE H, Urine Glucose NEG 01/10/17 1602: Anion Gap 23 H, Estimated GFR > 60, BUN/Creatinine Ratio 18.9, Glucose 251 H, Calcium 8.7, Phosphorus 8.4 H, Magnesium 2.4 H, Total Bilirubin 0.6, AST 374 H, ALT 327 H, Alkaline Phosphatase 86, Troponin I < 0.01, Total Protein 6.4, Albumin 3.4 L, Globulin 3.0, Albumin/Globulin Ratio 1.1, PT 12.7 H, INR 1.21 H, APTT 32, CBC w Diff MAN DIFF ORDERED, RBC 4.57 L, MCV 89.1, MCH 29.6, RDW 14.4, MPV 10.2, Gran % 71.1, Lymphocytes % 24.7, Monocytes % 3.1, Eosinophils % 0.9, Basophils % 0.2, Absolute Granulocytes 14.1 H, Segmented Neutrophils 53, Band Neutrophils 22 H, Absolute Lymphocytes 4.9 H, Lymphocytes 23, Monocytes 1 L, Absolute Monocytes 0.6, Eosinophils 1, Absolute Eosinophils 0.2, Absolute Basophils 0, Platelet Estimate VERIFIED BY SMEAR, Poikilocytosis 1+, [place] Cells 1+, PUBS MCHC 33.3, Fld Total RBCs Counted 100 01/10/17 1600: pH 7.11 *L, pCO2 35, pO2 73 L, HCO3 11 L, ABG O2 Sat (Measured) 87.0 L, Carboxyhemoglobin 1.0 L, O2 Concentration % 100%, Respiration Rate 16, O2 Delivery Method ESPRIT VENT, Vent Mode AC, Expiratory Pressure 5, Tidal Volume 550, Phlebotomy Draw Site RIGHT RADIAL Recent Imaging Studies: PATIENT: NEVIN UMAÑA PRESENT AGE: 81 PATIENT ACCOUNT NO: [id number] : 36 LOCATION: [facility] ORDERING PHYSICIAN: UTE CHANG MD SERVICE DATE: 01/11/17 EXAM TYPE: RAD - XRY-PORTABLE CHEST XRAY EXAMINATION: XR PORTABLE CHEST CLINICAL INFORMATION: Intubated. COMPARISON: CXR from 01/10/2017 TECHNIQUE: Portable AP view of the chest was obtained. FINDINGS: The ET tube is in satisfactory position at 5.5 cm above the kristy. The tip of the right IJ central venous catheter is in stable position within the mid superior vena cava. The enteric tube extends below the diaphragm, into the stomach, and beyond the [id number]. Again noted is a left prepectoral cardiac pacemaker/AICD with single transvenous lead extending to the apex of the right ventricle. Sternotomy wires are intact. Cardiac silhouette is normal in size. Thoracic aorta is calcified. There is persistent hazy opacity in the lateral aspect of the right upper lobe. Also, there is persistent hazy and streaky opacity in the retrocardiac region of left lower lobe. No new pulmonary findings compared to the prior exam. Again noted are several, mildly displaced right lateral rib fractures. IMPRESSION: 1. Endotracheal tube in satisfactory position at 5.5 cm above the kristy. 2. Pulmonary infiltrates are not appreciably changed compared to 01/10/2017. 3. Multiple, mildly displaced right lateral rib fractures. DICTATED BY: VIVIANA WETZEL MD DATE/TIME DICTATED:01/11/17809 SEALER SANDER:MAGNOLIA DATE/TIME TRANSCRIBED:01/11/17809 CONFIDENTIAL, DO NOT COPY WITHOUT APPROPRIATE AUTHORIZATION. <Electronically signed in Other Vendor System> SIGNED BY: VIVIANA WETZLE MD 01/11/17817 Assessment/Plan Assessment/Plan The patient is unresponsive after cardiac arrest. He has underlying heart disease. He is maintaining a blood pressure on levophed. Neurologic status is poor but final determination is pending. He has some positive cardiac enzymes which is likely demand ischemia in the setting of underlying coronary disease. He is bradycardic and I'm going to try and increase his heart rate by changing the defibrillator setting. Continue telemetry? Not applicable
--- NOTE | 2017-01-11 10:57 | NUR ---
DR LANE FROM NEUROLOGY IN TO ASSESS PT. PT STARTED ON DEPAKOTE PER MD IN [place] TO MINIMIZE SEIZURE ACTIVITY.
--- NOTE | 2017-01-11 11:00 | Cons- Hematology ---
General Information and HPI Consulting Request Date of Consult: 01/11/17 Requested By: Kristopher TOURE MD Reason for Consult: DIC Source of Information: old records Exam Limitations: clinical condition History of Present Illness: Mr. Robb is an 81-year-old with DM, HTN, CAD, Vfib with defibrillator, HLD who presented to the hospital after cardiac arrest and CPR. Per the history, patient was having lunch at a restaurant and stopped eating. He became unresponsive to command. EMS was called after attempt at Heimlich maneuver. He was noted to be pulseless by the time EMS arrived. CPR was started and taken to ED. CPR was continued. Epinephrine and amiodarone were given. Apparently his defibrillator fired. He was intubated and cooled in the ICU once he had ROSC. He remains unresponsive on the ventilator currently. Blood work done noted that he may have DIC. He had leukocytosis. He continues to have intermittent twitching activity. He is currently receiving Keppra. Allergies/Medications Allergies: Coded Allergies: No Known Allergies (01/10/17) Home Med List: Aspirin (Ecotrin*) 81 MG TABLET.DR 1 TAB PO DAILY HEART/BLOOD (Reported) Ezetimibe (Zetia) 10 MG TABLET 1 TAB PO DAILY CHOLESTEROL (Reported) Finasteride 5 MG TABLET 1 TAB PO DAILY PROSTATE (Reported) Furosemide 40 MG TABLET 0.5 TAB PO DAILY DIURETIC (Reported) Gabapentin 300 MG CAPSULE 1 CAP PO BID NEUROPATHY (Reported) Glipizide (Glipizide ER) 5 MG TAB.ER.24 1 TAB PO DAILY DM (Reported) Lisinopril 10 MG TABLET 1 TAB PO DAILY BP (Reported) Metformin HCl 500 MG TABLET 1 TAB PO BID DM (Reported) Metoprolol Tartrate 25 MG TABLET 1 TAB PO BID HEART/BP (Reported) Prasugrel HCl (Effient) 10 MG TABLET 1 TAB PO DAILY HEART (Reported) Rosuvastatin Calcium (Crestor) 40 MG TABLET 1 TAB PO EOD CHOLESTEROL ( Reported) Tamsulosin HCl 0.4 MG CAP.ER.24H 1 CAP PO DAILY PROSTATE (Reported) Current Medications: Current Medications Sig/Marcos Start time Last Medication Dose Route Stop Time Status Admin Acetaminophen 1,000 MG Q6P PRN 01/10 1815 AC IV Amiodarone HCl/ 360 MG Q12H 01/10 1630 AC 01/11 Dextrose IV 0956 N/A 1 UNIT Ampicillin Sodium/ 0 .STK-MED ONE 01/10 1833 DC Sulbactam Sodium .ROUTE Ampicillin Sodium/ 3,000 MG Q6 01/10 1807 AC 01/11 Sulbactam Sodium IV 0546 Sodium Chloride 100 ML Atropine Sulfate 1 MG .STK-MED ONE 01/10 2259 DC IM 01/10 2300 Epinephrine 1 MG ONCE ONE 01/10 1600 DC 01/10 IV 01/10 1601 1708 Insulin Human Regular 0 Q6 01/10 1816 AC 01/11 SC 0551 Levetiracetam 1,000 MG BID 01/11 1000 AC 01/11 Sodium Chloride 100 ML IV 1018 Levetiracetam 1,000 MG ONCE ONE 01/11 0630 DC 01/11 Sodium Chloride 100 ML IV 01/11 0644 0646 Levetiracetam 500 MG Q8 01/10 2200 DC 01/11 Sodium Chloride 100 ML IV 0520 Levetiracetam 1,500 MG ONCE ONE 01/10 1815 DC 01/10 Sodium Chloride 100 ML IV 01/10 1830 2223 Levetiracetam 500 MG ONCE ONE 01/10 1730 DC 01/10 Sodium Chloride 100 ML IV 01/10 1744 1834 Lorazepam 50 MG Q16H 01/10 2200 AC Dextrose/Water 500 ML IV Lorazepam 50 MG ONCE ONE 01/10 1715 DC 01/10 Sodium Chloride 500 ML IV 01/31 1314 1732 Lorazepam 0 .STK-MED ONE 01/10 1649 DC .ROUTE Lorazepam 0.5 MG ONCE ONE 01/10 1630 DC 01/10 IV 01/10 1631 1650 Lorazepam 0 .STK-MED ONE 01/10 1626 DC .ROUTE Morphine Sulfate 2 MG Q4P PRN 01/10 1815 AC IV Non-Formulary 0 SEE ADMIN CRITERIA 01/10 1945 DC 01/10 Medication ANY 2115 Norepinephrine 4 MG Q6 01/11 0600 AC 01/11 Sodium Chloride 250 ML IV 0521 Norepinephrine 4 MG Q24H 01/10 2200 DC 01/11 Sodium Chloride 250 ML IV 0008 Norepinephrine 8 MG ONCE ONE 01/10 1745 DC 01/10 Sodium Chloride 250 ML IV 01/11 0614 1747 Norepinephrine 4 MG ONCE ONE 01/10 1715 DC 01/10 Sodium Chloride 250 ML IV 01/12 1914 1732 Pantoprazole Sodium 0 .STK-MED ONE 01/10 1833 DC IV Pantoprazole Sodium 40 MG DAILY 01/10 1810 AC 01/11 IV 0957 Propofol 1,000 MG Q8H 01/10 2200 AC 01/11 N/A 100 ML IV 0548 Propofol 1,000 MG .STK-MED ONE 01/10 1946 DC IV 01/10 1947 Sodium Chloride 1,000 ML BOLUS ONE 01/11 0230 DC 01/11 IV 01/11 0429 0228 Sodium Chloride 500 ML BOLUS ONE 01/10 2300 DC 01/10 IV 01/10 2359 2300 Sodium Chloride 1,000 ML .Q5H 01/10 1815 AC 01/11 IV 0956 Valproate Sodium 1,000 MG ONCE ONE 01/11 0945 DC 01/11 Sodium Chloride 100 ML IV 01/11 1044 1003 Review of Systems Review of Systems: Unable to be obtained due to intubation and sedation. Past History Travel History Traveled to [place] past 21 day No Medical History Blood Transfusion Hx: No Neurological: NONE EENT: NONE Cardiovascular: CAD, hypertension, hyperlipidemia, CARDIAC CATH OPEN HEART SX PACEMAKER VTACH Respiratory: NONE Gastrointestinal: NONE Hepatic: NONE Renal: benign prost hyperplasia Musculoskeletal: NONE Psychiatric: NONE Endocrine: diabetes Blood Disorders: NONE Cancer(s): NONE LAUNDERETTE ATTENDANT/Reproductive: NONE Other Medical Hx: ? Peripheral Vascular Disease Surgical History Surgical History: vascular procedure ?Bypass in lower part of the body CABG in Psychosocial History Where Do You Live? Home Who Do You Live With? spouse Services at Home: None Primary Language: Serbian Smoking Status: Former Smoker ETOH Use: occasional use Exam & Diagnostic Data Vital Signs and I&O Vital Signs Date Time Temp Pulse Resp B/P Pulse O2 O2 Flow FiO2 Ox Delivery Rate 01/11 0956 60 116/47 01/11 0815 80 01/11 0800 100 Ventilator 100% 01/11 0800 91.8 57 28 100/50 100 Ventilator 100% 01/11 0551 100 01/11 0546 46 109/44 01/11 0521 47 109/40 01/11 0400 100 Ventilator 100% 01/11 0304 100 01/11 0045 100 01/11 0008 48 95/49 01/11 0000 89.2 48 28 84/44 100 Ventilator 100% 01/11 0000 100 Ventilator 100% 01/10 2216 100 01/10 2122 82 128/60 01/10 2015 100 01/10 2000 97 Ventilator 100% 01/10 1844 84 26 124/79 100 Ventilator 100% 01/10 1812 80 86 144/68 96 Ventilator 100% 01/10 1804 93 26 122/74 97 Ventilator 100% 01/10 1757 94.0 85 26 126/71 07 Ventilator 100% 01/10 1754 94.0 84 26 126/71 98 Ventilator 100% 01/10 1747 85 116/58 01/10 1740 94.0 84 26 122/74 98 Ventilator 100% 01/10 1730 94.0 86 26 126/71 98 Ventilator 100% 01/10 1721 93.0 86 26 116/58 99 Ventilator 100% 01/10 1708 84 116/58 01/10 1550 100 Intake & Output 01/11 1600 01/11 0800 01/11 0000 Intake Total 3573 2015 Output Total 450 90 Balance 3123 1926 Intake, IV 3573 2015 Intake, Oral 0 0 Number 0 0 Bowel Movements Output, 150 0 Gastric Drainage Output, Urine 300 90 Patient 66.763 kg Weight Physical Exam General Appearance: sedated, intubated Ears, Nose, Throat: ET tube in place Neck: Right IJ Respiratory: normal breath sounds Cardiovascular: regular rate/rhythm, no murmurs Gastrointestinal: normal bowel sounds, soft, non-tender Extremities: no edema Neurologic/Psych: unresponsive Skin: intact, normal color Lymphatic: no anterior cervical donna Last 48 Hours of Lab Results: Laboratory Tests 01/11 01/11 01/11 0945 0650 0105 Chemistry Sodium (137 - 145 mmol/L) 146 H 146 H 144 Potassium (3.5 - 5.1 mmol/L) 3.5 3.6 3.9 Chloride (98 - 107 mmol/L) 118 H 116 H 114 H Carbon Dioxide (22 - 30 mmol/L) 18 L 17 L 16 L Anion Gap (5 - 16) 10 14 15 BUN (9 - 20 mg/dL) 24 H 24 H 26 H Creatinine (0.7 - 1.2 mg/dL) 0.8 0.8 0.9 Estimated GFR (>60 ml/min) > 60 > 60 > 60 Glucose (65 - 99 mg/dL) 135 H 195 H 269 H Lactic Acid (0.7 - 2.1 mmol/L) 4.1 H Calcium (8.4 - 10.2 mg/dL) 7.4 L 7.3 L 7.7 L Phosphorus (2.5 - 4.5 mg/dL) 2.5 3.3 3.8 Magnesium (1.6 - 2.3 mg/dL) 1.6 1.6 1.8 Total Bilirubin (0.2 - 1.3 mg/dL) 0.6 0.6 0.7 AST (17 - 59 U/L) 207 H 242 H 291 H ALT (21 - 72 U/L) 191 H 204 H 252 H Troponin I (<0.11 ng/ml) 0.77 *H Albumin (3.5 - 5.0 g/dL) 2.4 L 2.4 L 2.8 L Coagulation PT (9.4 - 12.5 SEC) 16.2 H INR (0.90 - 1.17) 1.55 H APTT (25 - 37 SEC) 33 Fibrinogen Activity (200 - 393 MG/DL) 144 L 105 L Fibrin Degrad Products (< 10 ug/ml) Pending > 40 ug/ml H D-Dimer (70 - 232 ng/ml) > 5250 H > 5250 H Hematology CBC w Diff MAN DIFF ORDERED WBC (4.8 - 10.8 /CUMM) 25.2 H RBC (4.70 - 6.10 /CUMM) 3.78 L Hgb (14.0 - 18.0 G/DL) 11.3 L Hct (42 - 52 %) 32.9 L MCV (80.0 - 94.0 FL) 87.1 MCH (27.0 - 31.0 PG) 29.9 RDW (11.5 - 14.5 %) 14.0 Plt Count (130 - 400 /CUMM) 182 MPV (7.4 - 10.4 FL) 9.2 Gran % (42.2 - 75.2 %) 92.8 H Lymphocytes % (20.5 - 51.1 %) 1.9 L Monocytes % (1.7 - 9.3 %) 5.3 Eosinophils % (0 - 5 %) 0 Basophils % (0.0 - 2.0 %) 0 L Absolute Granulocytes (1.4 - 6.5 /CUMM) 23.3 H Segmented Neutrophils (42.2 - 75.2 %) 83 H Band Neutrophils (0.0 - 5.0 %) 10 H Absolute Lymphocytes (1.2 - 3.4 /CUMM) 0.5 L Lymphocytes (20.5 - 51.1 %) 5 L Monocytes (1.7 - 9.3 %) 2 Absolute Monocytes (0.10 - 0.60 /CUMM) 1.3 H Absolute Eosinophils (0.0 - 0.7 /CUMM) 0 Absolute Basophils (0.0 - 0.2 /CUMM) 0 Platelet Estimate (ADEQUATE) ADEQUATE Poikilocytosis 2+ Fernando Cells 2+ PUBS MCHC (33.0 - 37.0 G/DL) 34.3 01/11 01/10 01/10 0045 2235 1950 Blood Gas pH (7.35 - 7.45 PH) 7.24 *L 7.26 *L pCO2 (35 - 45 TORR) 27 L 29 L pO2 (80 - 100 TORR) 128 H 96 HCO3 (21 - 28 MEQ/L) 11 L 13 L ABG O2 Sat (Measured) (>96.0 %) 98.0 95.0 L P-50 (Temp Corrected) N N Carboxyhemoglobin (1.5 - 5.0 %) 0.3 L 0.3 L O2 Concentration % 100 100% Temperature (97.0 - 100.0 FARH) 98.0 Respiration Rate (BPM) 28 26 O2 Delivery Method VENT ESPRIT Vent Mode A/C AC Expiratory Pressure (CMH2O/P) 5 5 Tidal Volume (CC) 550 550 Chemistry Sodium (137 - 145 mmol/L) 143 Potassium (3.5 - 5.1 mmol/L) 3.8 Chloride (98 - 107 mmol/L) 109 H Carbon Dioxide (22 - 30 mmol/L) 17 L Anion Gap (5 - 16) 17 H BUN (9 - 20 mg/dL) 26 H Creatinine (0.7 - 1.2 mg/dL) 1.0 Estimated GFR (>60 ml/min) > 60 Glucose (65 - 99 mg/dL) 287 H Calcium (8.4 - 10.2 mg/dL) 8.1 L Phosphorus (2.5 - 4.5 mg/dL) 4.3 Magnesium (1.6 - 2.3 mg/dL) 1.9 Total Bilirubin (0.2 - 1.3 mg/dL) 0.6 AST (17 - 59 U/L) 329 H ALT (21 - 72 U/L) 284 H Troponin I (<0.11 ng/ml) 0.75 *H Albumin (3.5 - 5.0 g/dL) 3.0 L Miscellaneous Phlebotomy Draw Site RIGHT RADIAL RIGHT RADIAL 01/10 1820 Urines Urine Color (YEL,AMB,STR) YEL Urine Clarity (CLEAR) HAZY H Urine pH (5.0 - 8.0) 6.0 Ur Specific [place] (1.001 - 1.035) >= 1.030 Urine Protein (NEG,<30 MG/DL) >=300 H Urine Ketones (NEG) NEG Urine Nitrite (NEG) NEG Urine Bilirubin (NEG) NEG Urine Urobilinogen (0.1 - 1.0 EU/dl) 1.0 Ur Leukocyte Esterase (NEG) NEG Ur Microscopic SEDIMENT EXAMINED Urine RBC (0 - 5 /HPF) 15-25 H Ur Epithelial Cells (NONE,FEW) RARE Urine Bacteria (NEG/NONE) MOD H Granular Casts (NONE /LPF) 5-10 H Urine Hemoglobin (NEG) LARGE H Urine Glucose (N MG/DL) NEG 01/10 01/10 1602 1600 Blood Gas pH (7.35 - 7.45 PH) 7.11 *L pCO2 (35 - 45 TORR) 35 pO2 (80 - 100 TORR) 73 L HCO3 (21 - 28 MEQ/L) 11 L ABG O2 Sat (Measured) (>96.0 %) 87.0 L Carboxyhemoglobin (1.5 - 5.0 %) 1.0 L O2 Concentration % 100% Respiration Rate (BPM) 16 O2 Delivery Method ESPRIT VENT Vent Mode AC Expiratory Pressure (CMH2O/P) 5 Tidal Volume (CC) 550 Chemistry Sodium (137 - 145 mmol/L) 144 Potassium (3.5 - 5.1 mmol/L) 3.6 Chloride (98 - 107 mmol/L) 108 H Carbon Dioxide (22 - 30 mmol/L) 13 L Anion Gap (5 - 16) 23 H BUN (9 - 20 mg/dL) 17 Creatinine (0.7 - 1.2 mg/dL) 0.9 Estimated GFR (>60 ml/min) > 60 BUN/Creatinine Ratio (7 - 25 %) 18.9 Glucose (65 - 99 mg/dL) 251 H Calcium (8.4 - 10.2 mg/dL) 8.7 Phosphorus (2.5 - 4.5 mg/dL) 8.4 H Magnesium (1.6 - 2.3 mg/dL) 2.4 H Total Bilirubin (0.2 - 1.3 mg/dL) 0.6 AST (17 - 59 U/L) 374 H ALT (21 - 72 U/L) 327 H Alkaline Phosphatase (< 127 U/L) 86 Troponin I (<0.11 ng/ml) < 0.01 Total Protein (6.3 - 8.2 g/dL) 6.4 Albumin (3.5 - 5.0 g/dL) 3.4 L Globulin (1.9 - 4.2 gm/dL) 3.0 Albumin/Globulin Ratio (1.1 - 2.2 %) 1.1 Coagulation PT (9.4 - 12.5 SEC) 12.7 H INR (0.90 - 1.17) 1.21 H APTT (25 - 37 SEC) 32 Hematology CBC w Diff MAN DIFF ORDERED WBC (4.8 - 10.8 /CUMM) 19.9 H RBC (4.70 - 6.10 /CUMM) 4.57 L Hgb (14.0 - 18.0 G/DL) 13.6 L Hct (42 - 52 %) 40.7 L MCV (80.0 - 94.0 FL) 89.1 MCH (27.0 - 31.0 PG) 29.6 RDW (11.5 - 14.5 %) 14.4 Plt Count (130 - 400 /CUMM) 203 MPV (7.4 - 10.4 FL) 10.2 Gran % (42.2 - 75.2 %) 71.1 Lymphocytes % (20.5 - 51.1 %) 24.7 Monocytes % (1.7 - 9.3 %) 3.1 Eosinophils % (0 - 5 %) 0.9 Basophils % (0.0 - 2.0 %) 0.2 Absolute Granulocytes (1.4 - 6.5 /CUMM) 14.1 H Segmented Neutrophils (42.2 - 75.2 %) 53 Band Neutrophils (0.0 - 5.0 %) 22 H Absolute Lymphocytes (1.2 - 3.4 /CUMM) 4.9 H Lymphocytes (20.5 - 51.1 %) 23 Monocytes (1.7 - 9.3 %) 1 L Absolute Monocytes (0.10 - 0.60 /CUMM) 0.6 Eosinophils (0 - 5.0 %) 1 Absolute Eosinophils (0.0 - 0.7 /CUMM) 0.2 Absolute Basophils (0.0 - 0.2 /CUMM) 0 Platelet Estimate (ADEQUATE) VERIFIED BY SMEAR Poikilocytosis 1+ [place] Cells 1+ PUBS MCHC (33.0 - 37.0 G/DL) 33.3 Miscellaneous Phlebotomy Draw Site RIGHT RADIAL Other Body Source Fld Total RBCs Counted (%) 100 Imaging/Other Studies: CT chest 01/10/2017: 1. Dependent by basilar atelectasis infiltrate with air bronchograms. Small patchy parenchymal infiltrate in the anterior left upper lobe. 2. Small dependent bilateral pleural effusions. 3. Endotracheal tube catheter approximately 2.5 cm above kristy. Nasogastric tube in stomach. Pacemaker leads in right atrium and right ventricle. Assessment/Plan Assessment: Mr. Robb is an 81-year-old male with multiple co-morbidities who presented to the hospital with an out of hospital cardiac arrest status post CPR and ROSC. He is current intubated, sedated, and undergoing therapeutic hypothermia therapy. Neurological status has not returned. Blood work noted reactive leukocytosis. Platelet count is normal. DIC panel noted elevated FDP. He has low fibrinogen at 105 and is now 144. He has no evidence of bleeding. With therapeutic hypothermia therapy, some hematologic changes can be seen including decrease in hemoglobin. Platelet function and WBC function are decreased. He will be at risk for bleeding and infection. His coagulation parameters will be abnormal due to decrease in functioning coagulation factors due to the hypothermia. He should be monitored for bleeding and infections. His overall prognosis is poor. Recommendations: 1. Check DIC every 6-8 hours, if stable can change to every 12 hours 2. Monitor for infection 3. Monitor for bleeding 4. If fibrinogen is <100, would transfuse with cryoprecipitate 5. If bleeding, would transfuse with platelet and FFP 6. Critical care as per ICU team Problem List: 1. Cardiac arrest 2. CAD (coronary artery disease) 3. Diabetes mellitus, type 2 Other Findings/Comments: Please call [phone] with any questions Consult Acknowledgment - Thank you for your consult request.
--- NOTE | 2017-01-11 11:41 | NUR ---
PT TEMP > 93, PT CONTINUES TO HAVE FREQUENT SEIZURE LIKE ACTIVITY. REPORTED TO DR HULL AND DR CORTEZ. ADDITIONAL DEPAKOTE DOSE ORDERED.
--- NOTE | 2017-01-11 12:30 | NUR ---
[employer] REP IN TO ADJUST PACEMAKER, NEW RATE SET AT 70 BPM.
[2017-01-11 16:00] VITALS: BP 110/64
[2017-01-11 16:11] LABS: PT 14.1 SEC (9.4-12.5); PTT 30 SEC (25-37)
--- NOTE | 2017-01-11 17:44 | NUR ---
PER DR. TOURE; NO POTASSIUM REPLENISHMENT AT THIS TIME
--- NOTE | 2017-01-11 18:23 | ECHOCARDIOGRAM REPORT ---
NEVIN UMAÑA Age: 81 : 1935 Gender: M Exam Date: 01/11/2017 10:29 Exam Location: [facility] Ht (in): 70 Wt (lb): 147 BSA: 1.81 BP: 119 / 43 Ordering Physician: KASANDRA BERMUDEZ MD Referring Physician: KASANDRA BERMUDEZ MD Technologist: Gael Mccann [facility] Room Number: 104-1 Indications: RESPIRATORY FAILURE Rhythm: Sinus Technical Quality: Good FINDINGS Left Ventricle The left ventricle is upper normal normal limits in size. Left ventricular wall thickness was upper normal limits. The interventricular septum appears to contract well. The inferior and posterior gonzáles are hypo-to akinetic. Apical views are suboptimal. Estimated ejection fraction is probably 35-40% visually. Right Ventricle Normal right ventricular size and function. Catheter/pacemaker wire in the right ventricular cavity. Right Atrium Normal right atrial size. Left Atrium Mild to moderate left atrial dilatation. Mitral Valve Mild thickening/calcification of the anterior mitral valve leaflet. No mitral regurgitation. Aortic Valve Focal thickening of the aortic valve cusps. No aortic stenosis. No aortic regurgitation. Tricuspid Valve Tricuspid valve not well visualized, grossly normal. Trace tricuspid regurgitation. Right ventricular systolic pressure estimated to be elevated at 40-45 mmHg. Pulmonic Valve Pulmonic valve not well visualized. No pulmonic regurgitation. Pericardium No pericardial or pleural effusion. Great Vessels Normal size aortic root. CONCLUSIONS The left ventricle is upper normal normal limits in size. Left ventricular wall thickness was upper normal limits. The interventricular septum appears to contract well. The inferior and posterior gonzáles are hypo-to akinetic. Apical views are suboptimal. Estimated ejection fraction is probably 35-40% visually. Catheter/pacemaker wire in the right ventricular cavity. Mild to moderate left atrial dilatation. Mild thickening/calcification of the anterior mitral valve leaflet. Focal thickening of the aortic valve cusps. No aortic stenosis. Right ventricular systolic pressure estimated to be elevated at 40- 45 mmHg. Kasandra Bermudez M.D. (Electronically Signed) Final Date: 11 January 2017 18:22 MEASUREMENTS (Male / Female) Normal Values 2D ECHO LV Diastolic Diameter PLAX 5.6 cm 4.2 - 5.9 / 3.9 - 5.3 cm LV Systolic Diameter PLAX 4.7 cm 2.1 - 4.0 cm LV Fractional Shortening PLAX 16.1 % 25 - 46 % LV Ejection Fraction 2D Teich 33.4 % IVS Diastolic Thickness 1.0 cm LVPW Diastolic Thickness 1.1 cm LV Relative Wall Thickness 0.4 RV Internal Dim ED PLAX 2.7 cm 1.9 - 3.8 cm LVOT Diameter 2.2 cm Aortic Root Diameter 2.8 cm LA Systolic Diameter LX 3.2 cm 3.0 - 4.0 / 2.7 - 3.8 cm LA Volume 79.0 cm 18 - 58 / 22 - 52 cm DOPPLER AV Peak Velocity 70.3 cm/s AV Peak Gradient 2.0 mmHg AV Mean Velocity 48.0 cm/s AV Mean Gradient 1.0 mmHg AV Velocity Time Integral 16.5 cm LVOT Peak Velocity 63.2 cm/s LVOT Peak Gradient 1.6 mmHg LVOT Mean Velocity 46.9 cm/s LVOT Mean Gradient 1.0 mmHg LVOT Velocity Time Integral 16.0 cm LVOT Stroke Volume 60.8 cm AV Area Cont Eq vti 3.7 cm AV Area Cont Eq pk 3.4 cm MV Peak Velocity 89.6 cm/s MV Peak Gradient 3.2 mmHg MV Mean Velocity 51.2 cm/s MV Mean Gradient 1.0 mmHg Mitral E Point Velocity 80.5 cm/s Mitral A Point Velocity 89.3 cm/s Mitral E to A Ratio 0.9 MV PHT Velocity 90.9 cm/s MV Deceleration Day 248.0 cm/s MV Pressure Half Time 110.0 ms MV Area PHT 2.0 cm MV Deceleration Time 261.0 ms TR Peak Velocity 304.0 cm/s TR Peak Gradient 37.0 mmHg Right Atrial Pressure 5.0 mmHg Pulmonary Artery Systolic Pressu 42.0 mmHg Right Ventricular Systolic Press 42.0 mmHg PV Peak Velocity 77.2 cm/s PV Peak Gradient 2.4 mmHg PV Mean Velocity 47.4 cm/s PV Mean Gradient 1.0 mmHg PV Velocity Time Integral 16.6 cm LV E' Lateral Velocity 8.5 cm/s Mitral E to LV E' Lateral Ratio 9.5 LV E' Septal Velocity 5.2 cm/s Mitral E to LV E' Septal Ratio 15.6
[2017-01-11 21:17] LABS: PT 14.7 SEC (9.4-12.5); PTT 30 SEC (25-37)
--- NOTE | 2017-01-11 22:25 | Event Note ---
Event Note Event Note: p.t had sodium level of 151, that increased from 146 @ 10 am. with increased urine output. 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 As we get a start rewarming protocol with, after discussion with Dr. Jerez we decide to give the patient D5 half-normal saline at 75 mL per hour and will check his sodium level within 4 hour. Further plan will be decided after that
[2017-01-12] VITALS: BP 100/52
--- NOTE | 2017-01-12 00:55 | NUR ---
2000- URINE OUTPUT FOR 1 HOUR 550ML MD UNGER MADE AWARE, STAT LABS ORDERED.
[2017-01-12 02:33] LABS: ABSOLUTE BASOPHIL COUNT 0 /CUMM (0.0-0.2); ABSOLUTE EOSINOPHIL COUNT 0 /CUMM (0.0-0.7); ABSOLUTE LYMPH COUNT 1.5 /CUMM (1.2-3.4); EOSINOPHIL % 0 % (0-5)
[2017-01-12 02:39] LABS: PTT 29 SEC (25-37)
[2017-01-12 02:53] LABS: ABSOLUTE GRANULOCYTE CT 18.6 /CUMM (1.4-6.5); ABSOLUTE MONOCYTE COUNT 0.8 /CUMM (0.10-0.60); BASOPHIL % 0 % (0.0-2.0); GRANULOCYTE % 89.3 % (42.2-75.2); MEAN CORPUSCULAR HGB CONC 34.5 G/DL (33.0-37.0); MEAN CORPUSCULAR VOLUME 86.9 FL (80.0-94.0); MEAN PLATELET VOLUME 10.2 FL (7.4-10.4); PLATELET COUNT 156 /CUMM (130-400); RBC DISTRIBUTION WIDTH 14.4 % (11.5-14.5); RED BLOOD CELL CT 3.04 /CUMM (4.70-6.10); WHITE BLOOD CELL COUNT 20.8 /CUMM (4.8-10.8)
[2017-01-12 02:55] LABS: HEMATOCRIT 26.4 % (42-52)
--- NOTE | 2017-01-12 06:41 | NUR ---
MD BREEN MADE AWARE URINE OUTPUT FOR LAST 2 HOURS WAS TOTAL 30ML. NO NEW ORDERS AT THIS TIME.
--- NOTE | 2017-01-12 07:03 | PN- Resident CRCU ---
Subjective HPI/CRCU Issues: Patient is in the ICU, postcardiac arrest, post cardiopulmonary resuscitation, for therapeutic hypothermia and life-support. No issues overnight, as the patient was in therapeutic hypothermia. 24 Hour Events: Patient received cardiopulmonary resuscitation and was placed in therapeutic hypothermia, stated on pressor support overnight, had mild DIC, and expected dyselectrolytemia. Objective Vital Signs & I&O Last 8 Hrs of Vitals and I&O: Intake & Output 01/12 1600 Intake Total 1714 Output Total 200 Balance 1514 Intake, IV 1714 Intake, Tube 0 Feeding Intake, Tube 0 Irrigant Number 0 Bowel Movements Output, Urine 200 Patient 73.085 kg Weight Exam General Appearance: well developed/nourished, intubated Other Physical Findings: Head: atraumatic, normal appearance Eyes: Bilateral: other (b/l pin point pupil, no reflex), no corneal reflex Ears, Nose, Throat: intubated, so cannot examine throat Neck: normal inspection Respiratory: intubated, clear lung sounds b/l, no wheezes Cardiovascular: regular rate/rhythm, rate 70 Peripheral Pulses: 3+ radial (R), 3+ radial (L) Gastrointestinal: normal bowel sounds Neurologic/Psych: absent corneal reflex b/l, tone of limbs normal b/l, not increased, no decerebrate posturing, occassional (almost every 20secs) he has twitching of his upper limbs b/l, absent doll's eye phenomenon, no corneal reflex b/l Skin: cold to touch, on hypothermia protocol Central Line Site: Right IJ Cannon Site: urethral Date In: 01/11/17 Still Needed? Yes NG Tube Site: OG tube in Current Medications: Current Medications Sig/Marcos Start time Last Medication Dose Route Stop Time Status Admin Acetaminophen 1,000 MG Q6P PRN 01/10 1815 AC IV Amiodarone HCl/ 360 MG Q12H 01/10 1630 AC 01/12 Dextrose IV 0411 N/A 1 UNIT Ampicillin Sodium/ 3,000 MG Q6 01/10 1807 AC 01/12 Sulbactam Sodium IV 1812 Sodium Chloride 100 ML Dextrose/Sodium 1,000 ML Q13H 01/11 2245 AC 01/12 Chloride IV 1031 Heparin Sodium 5,000 UNIT Q8 01/12 0840 AC 01/12 (Porcine) SC 1307 Insulin Human Regular 0 Q6 01/10 1816 AC 01/12 SC 1818 Levetiracetam 1,000 MG Q6 01/12 1800 AC 01/12 Sodium Chloride 100 ML IV 1844 Levetiracetam 1,000 MG BID 01/11 1000 DC 01/12 Sodium Chloride 100 ML IV 1029 Lorazepam 50 MG Q16H 01/10 2200 DC 01/11 Dextrose/Water 500 ML IV 1532 Magnesium Sulfate 1 GM Q2H 01/12 1315 DC 01/12 Dextrose/Water 100 ML IV 01/12 1714 1541 Magnesium Sulfate 2 GM ONCE ONE 01/12 0330 CAN Dextrose/Water 250 ML IV 01/12 0729 Morphine Sulfate 2 MG Q4P PRN 01/10 1815 AC IV Norepinephrine 4 MG Q3 01/12 1200 AC 01/12 Sodium Chloride 250 ML IV 1541 Norepinephrine 4 MG .STK-MED ONE 01/12 1151 DC IV 01/12 1152 Norepinephrine 4 MG Q6 01/11 2359 DC 01/12 Sodium Chloride 250 ML IV 0411 Pantoprazole Sodium 40 MG DAILY 01/10 1810 AC 01/12 IV 1028 Potassium Chloride 20 MEQ Q1H 01/12 1315 DC 01/12 IV 01/12 1416 1541 Potassium Chloride 20 MEQ Q1H 01/12 0345 CAN IV 01/12 0446 Potassium Chloride 20 MEQ ONCE ONE 01/12 0330 CAN IV 01/12 0331 Propofol 1,000 MG Q8H 01/10 2200 AC 01/12 N/A 100 ML IV 1044 Sodium Chloride 1,000 ML .Q10H 01/10 1815 DC 01/11 IV 2040 Valproate Sodium 500 MG Q8 01/12 2200 AC Sodium Chloride 100 ML IV Valproate Sodium 1,000 MG ONCE ONE 01/12 1545 DC 01/12 Sodium Chloride 100 ML IV 01/12 1650 1659 Valproate Sodium 500 MG Q8 01/11 2200 DC 01/12 Sodium Chloride 100 ML IV 1304 Vancomycin HCl 1,000 MG ONCE ONE 01/12 0800 DC 01/12 Dextrose/Water 250 ML IV 01/12 0859 1025 CXR Findings: IMPRESSION: Stable support lines and catheters. No new acute cardiopulmonary process seen. DICTATED BY: EFE KAY MD DATE/TIME DICTATED:01/12/17743 ONCOLOGY RADIATION PHYSICIAN:MAGNOLIA DATE/TIME TRANSCRIBED:01/12/17743 Impression/Plan Impression/Problem List Impression: 81-year-old male with past medical history of diabetes mellitus, hypertension, coronary artery disease status post open heart surgery more than 20 years back, h/o VFib s/p defibrillator, hyperlipidemia, BPH was brought in by ambulance with continuing current pulmonary resuscitation. Continued cardiopulmonary resuscitation in the emergency department. Received epinephrine. Central line was put in the ED and was getting levophed beside other medication. CT head did not show any bleed or new changes. This morning he is on hypothermia protocol, started yesterday 10pm. Have started rewarming. 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 She'll about 5 level was adjusted. -Doses of Keppra also increased to every 6 hrs -has depacon 500mg q8 -We will try to keep propofol at the minimum doses only to prevent his seizure activity -Plan to change anticonvulsant drugs if her hematocrit is not able to control the myoclonic jerks despite being in therapeutic range -appreciate neurology consult cardiology -defibrillator interrogated dy Dr Bermudez and found that he had VT and vfib before he got defibrillated yesterday afternoon -Rate for pacemaker firing was increased from 40-70 yesterday -Patient has been on Levophed at near maximum dose to maintain his blood pressure just around 100/50. -Plan to add another pressure medication if Levophed alone is not able to sustain blood pressure -Continue Amiodarone on at 0.5 -Dr. Bermudez was consulted earlier today when patient started having some irregular cardiac activities earlier this morning. He was having some PVCs and intrinsic sinus rhythm which would cause the paced rhythm to appear otherwise pulmonology -is intubated -Does not have any respiratory effort of his own hem -has DIC with fibrinogen >100 today -checking only daily now -blood transfusion and cryo if bleeding -watch for infection -cryo ppt if fibrinogen<100 -appreciate heme consult ID -on Unasyn as proplylaxis -Gave 1 dose of IV vancomycin 1 g today DVT ppx: ALPS Diet: NPO Family () updated about his condition by me. They understand that the patient's condition is critical and he remains in a condition of full code. However, his did mention that "No one should suffer, and I do not see him improving", and also mentioned that she would probably not want another round of cardiopulmonary resuscitation if it ever came to that. But again she did not change the CODE STATUS of the patient. My resident Dr. Mo also discussed with family and updated the condition. Attending Dr. Mcdermott updated. Code status: Full code Problem List: 1. Cardiopulmonary arrest Pain Ratin Tomorrow's Labs & Rationales: ICU lab bundle, CBC, DIC panel, CXR, Valproate level Plan DVT/Prophylaxis: mechanical
--- NOTE | 2017-01-12 07:49 | RADIOLOGY REPORT ---
EXAMINATION: XR PORTABLE CHEST CLINICAL INFORMATION: Follow-up intubation. COMPARISON: Chest 01/11/2017. TECHNIQUE: Portable AP view of the chest was obtained. FINDINGS: Tip of endotracheal tube is 5.5 cm above the kristy. Right jugular central line is in mid SVC. An enteric tube is below the diaphragm in stomach. Unipolar pacer electrode is in right ventricle. The heart size is normal with normal pulmonary vascularity. The lungs are clear and expanded. There are multiple mid right lateral rib fractures without any visible pneumothorax. There are mediastinal ramos and median sternotomy sutures from previous CABG. IMPRESSION: Stable support lines and catheters. No new acute cardiopulmonary process seen.
[2017-01-12 08:00] VITALS: BP 114/60
--- NOTE | 2017-01-12 08:11 | PN- CRCU ---
Subjective HPI/Critical Care Issues: The patient remains unresponsive, on mechanical ventilation and on sedation. He is currently in the rewarming process and his body temperature is 95.3. He has not been shivering. When he is moved or turned by nursing, he continues to have twitching. He has not had generalized seizure activity. The patient remains hypotensive noting his pressor requirement has increased. His oxygenation has improved and he is now down to 40%. Blood cultures today came back positive for gram-positive cocci in clusters. Objective Current Medications: Current Medications Sig/Marcos Start time Last Medication Dose Route Stop Time Status Admin Acetaminophen 1,000 MG Q6P PRN 01/10 1815 AC IV Amiodarone HCl/ 360 MG Q12H 01/10 1630 AC 01/12 Dextrose IV 0411 N/A 1 UNIT Ampicillin Sodium/ 3,000 MG Q6 01/10 1807 AC 01/12 Sulbactam Sodium IV 0557 Sodium Chloride 100 ML Dextrose/Sodium 1,000 ML Q13H 01/11 2245 AC 01/11 Chloride IV 2240 Insulin Human Regular 0 Q6 01/10 1816 AC 01/12 SC 0550 Levetiracetam 1,000 MG BID 01/11 1000 AC 01/11 Sodium Chloride 100 ML IV 2220 Levetiracetam 500 MG Q8 01/10 2200 DC 01/11 Sodium Chloride 100 ML IV 0520 Lorazepam 50 MG Q16H 01/10 2200 AC 01/11 Dextrose/Water 500 ML IV 1532 Magnesium Sulfate 2 GM ONCE ONE 01/12 0330 CAN Dextrose/Water 250 ML IV 01/12 0729 Morphine Sulfate 2 MG Q4P PRN 01/10 1815 AC IV Norepinephrine 4 MG Q6 01/11 2359 AC 01/12 Sodium Chloride 250 ML IV 0411 Norepinephrine 4 MG Q6 01/11 0600 DC 01/11 Sodium Chloride 250 ML IV 1716 Pantoprazole Sodium 40 MG DAILY 01/10 1810 AC 01/11 IV 0957 Potassium Chloride 20 MEQ Q1H 01/12 0345 CAN IV 01/12 0446 Potassium Chloride 20 MEQ ONCE ONE 01/12 0330 CAN IV 01/12 0331 Propofol 1,000 MG Q8H 01/10 2200 AC 01/12 N/A 100 ML IV 0413 Sodium Chloride 1,000 ML .Q10H 01/10 1815 DC 01/11 IV 2040 Valproate Sodium 500 MG Q8 01/11 2200 AC 01/12 Sodium Chloride 100 ML IV 0504 Valproate Sodium 1,000 MG ONCE ONE 01/11 1145 DC 01/11 Sodium Chloride 100 ML IV 01/11 1250 1245 Valproate Sodium 1,000 MG ONCE ONE 01/11 0945 DC 01/11 Sodium Chloride 100 ML IV 01/11 1044 1003 Vancomycin HCl 1,000 MG ONCE ONE 01/12 0800 UNir Dextrose/Water 250 ML IV 01/12 0859 Vital Signs & I&O Last 24 Hrs of Vitals and I&O: Vital Signs Date Time Temp Pulse Resp B/P Pulse O2 O2 Flow FiO2 Ox Delivery Rate 01/12 0606 40 01/12 0411 70 102/47 01/12 0411 70 10247 01/12 0400 97 Ventilator 40% 01/12 0257 40 01/12 0034 50 01/12 0000 91.5 70 28 100/52 99 Ventilator 100% 01/12 0000 99 Ventilator 50% 01/11 2258 70 104/55 01/11 2245 50 01/11 2222 70 97/52 01/11 2020 50 01/11 2000 100 Ventilator 50% 01/11 1630 50 01/11 1600 99 Ventilator 50% 01/11 1600 93.0 112 28 110/64 100 Ventilator 50% 01/11 1442 50 01/11 1200 100 Ventilator 60% 01/11 1117 52 125/44 01/11 1115 60 01/11 0956 60 116/47 01/11 0815 80 01/11 0800 100 Ventilator 100% 01/11 0800 91.8 57 28 100/50 100 Ventilator 100% Intake & Output 01/12 0800 01/12 0000 01/11 1600 Intake Total 1480 2742 1841.8 Output Total 485 1180 450 Balance 995 1562 1391.8 Intake, IV 1480 2692 1841.8 Intake, Oral 0 Intake, Other 50 Number 0 0 Bowel Movements Output, 25 50 50 Gastric Drainage Output, Urine 460 1130 400 Patient 150 lb Weight Physical Exam General Appearance intubated, sedated Skin cool to touch, left hand has melanotic lesion about 2x3 cm irregular HEENT Atraumatic, pupils 2 mm sluggish to react Neck supple Cardiovascular Regular Rate, S1 and S2 heard Lungs bilateral anterior rhonchi heard, the lungs expand symmetrically and the trachea is midline Abdomen Soft, absent bowel sound, nontender Extremities cold to touch, no edema Results Last 24 Hrs of Lab Results: Laboratory Tests 01/12/17 0600: pH 7.42, pCO2 18 L, pO2 98, HCO3 11 L, ABG O2 Sat (Measured) 97.0, P-50 (Temp Corrected) N, Carboxyhemoglobin 0.2 L, O2 Concentration % .40, Respiration Rate 28, O2 Delivery Method VENT, Vent Mode A/C, Expiratory Pressure 5, Tidal Volume 550, Sodium Cancelled, Potassium Cancelled, Chloride Cancelled, Carbon Dioxide Cancelled, Anion Gap Cancelled, BUN Cancelled, Creatinine Cancelled, Glucose Cancelled, Calcium Cancelled, Phosphorus Cancelled, Magnesium Cancelled, Total Bilirubin Cancelled, AST Cancelled, ALT Cancelled, Albumin Cancelled, CBC w Diff Cancelled, WBC Cancelled, RBC Cancelled, Hgb Cancelled, Hct Cancelled, MCV Cancelled, MCH Cancelled, RDW Cancelled, Plt Count Cancelled, MPV Cancelled, PUBS MCHC Cancelled, Phlebotomy Draw Site RIGHT RADIAL 01/12/17 0150: Anion Gap 17 H, Estimated GFR > 60, Glucose 164 H, Calcium 7.7 L, Phosphorus 1.3 L, Magnesium 1.6, Total Bilirubin 0.6, AST 99 H, ALT 139 H, Albumin 2.2 L, PT 15.0 H, INR 1.43 H, APTT 29, Fibrinogen Activity 243, Fibrin Degrad Products > 40 ug/ml H, CBC w Diff MAN DIFF ORDERED, RBC 3.04 L, MCV 86.9, MCH 30.0, RDW 14.4, MPV 10.2, Gran % 89.3 H, Lymphocytes % 7.1 L, Monocytes % 3.6, Eosinophils % 0, Basophils % 0 L, Absolute Granulocytes 18.6 H, Absolute Lymphocytes 1.5, Absolute Monocytes 0.8 H, Absolute Eosinophils 0, Absolute Basophils 0, Platelet Estimate ADEQUATE, Poikilocytosis 2+, Fernando Cells 2+, PUBS MCHC 34.5 01/11/17 2020: Urinalysis MOD H, Urine Color YEL, Urine Clarity HAZY H, Urine pH 6.0, Ur Specific [place] <= 1.005, Urine Protein NEG, Urine Ketones TRACE H, Urine Nitrite NEG, Urine Bilirubin NEG, Urine Urobilinogen 0.2, Ur Leukocyte Esterase NEG, Ur Microscopic SEDIMENT EXAMINED, Urine RBC 5-10 H, Urine WBC 1-3 H, Urine Bacteria FEW H, Granular Casts RARE H, Urine Hemoglobin LARGE H, Urine Glucose NEG 01/11/172019: Urine Osmolality 191 L, Ur Random Creatinine 12.3, Ur Random Sodium 21 L, Ur Random Potassium 18.9, Fraction Sodium Excret 0.9 01/11/17 2014: Anion Gap 16, Estimated GFR > 60, Glucose 125 H, Serum Osmolality 316 H, Calcium 7.7 L, Phosphorus 1.5 L, Magnesium 1.7, Total Bilirubin 0.6, AST 126 H, ALT 157 H, Albumin 2.4 L, PT 14.7 H, INR 1.40 H, APTT 30, Fibrinogen Activity 204, Fibrin Degrad Products > 40 ug/ml H, D-Dimer > 5250 H 01/11/17 1400: PT 14.1 H, INR 1.35 H, APTT 30, Fibrinogen Activity 177 L, Fibrin Degrad Products > 40 ug/ml H, D-Dimer > 5250 H 01/11/17 0945: Anion Gap 10, Estimated GFR > 60, Glucose 135 H, Lactic Acid 4.1 H, Calcium 7.4 L, Phosphorus 2.5, Magnesium 1.6, Total Bilirubin 0.6, AST 207 H, ALT 191 H, Albumin 2.4 L Last 24 Hrs of Micro Results: BC x 2 positive for GPCs in clusters. Diagnostic Data CXR Findings: Stable support lines and catheters. No new acute cardiopulmonary process seen. Impression/Plan Impression/Plan Impression/Plan: Impression: 1. Choking episode, leading to aspiration followed by cardiopulmonary arrest, with persistent hypotension requiring ongoing pressor therapy. 2. Probable anoxic brain injury, with seizures and postures. 3. BCs positive for gram-positive cocci in clusters, likely contaminant versus respiratory source. 4. Electrolyte abnormalities, hypernatremia. 5. Positive troponin, likely secondary to demand ischemia in the setting of cardiac arrest. 6. Ventricular tachycardia, on amiodarone. 7. Respiratory failure secondary to aspiration pneumonia. 8. Malnutrition. Recommendations: * Complete hypothermia protocol. Electrolyte repletion once the patient has been rewarmed as necessary. * Give vancomycin 1 g IV 1 today. * Will follow up cultures and determine if the patient needs to be switched to vancomycin tomorrow. Continue IV Unasyn for now. * Continue IV Keppra, Depakote and propofol. * Discontinue IV Ativan. * VENT: Decrease RR to 18, then check ABG one hour after change. * Continue D5W, monitor labs q 8 hours today to ensure improvement (but not over correction) of serum sodium. * Attempt to wean Levophed down, maintain an MAP greater than 65 mmHg. * Await cardiology input regarding positive troponin. Continue amiodarone for now. * Continue DVT/GI prophylaxis. Add SQ heparin. * The patient is critically ill and has potential for poor outcome. I have discussed this with the patient's family in detail. He remains a full code. * Appreciate all consultants input.
--- NOTE | 2017-01-12 08:34 | PN- Hematology ---
Subjective Subjective: He continues to be intubated and sedated. He is being rewarmed. He has not recovered neurological function as of yet. Review of Systems: Unable to be obtained. Objective Vital Signs and I&Os Vital Signs Date Time Temp Pulse Resp B/P Pulse O2 O2 Flow FiO2 Ox Delivery Rate 01/12 0606 40 01/12 0411 70 102/47 01/12 0411 70 102/47 01/12 0400 97 Ventilator 40% 01/12 0257 40 01/12 0034 50 01/12 0000 91.5 70 28 100/52 99 Ventilator 100% 01/12 0000 99 Ventilator 50% 01/11 2258 70 104/55 01/11 2245 50 01/11 2222 70 97/52 01/11 2020 50 01/11 2000 100 Ventilator 50% 01/11 1630 50 01/11 1600 99 Ventilator 50% 01/11 1600 93.0 112 28 110/64 100 Ventilator 50% 01/11 1442 50 01/11 1200 100 Ventilator 60% 01/11 1117 52 125/44 01/11 1115 60 01/11 0956 60 116/47 Intake & Output 01/12 1600 01/12 0800 01/12 0000 01/11 1600 01/11 0800 01/11 0000 Intake Total 1480 2742 1841.8 3573 2015 Output Total 485 1180 450 450 90 Balance 995 1562 1391.8 3123 1926 Intake, IV 1480 2692 1841.8 3573 2015 Intake, Oral 0 0 0 Intake, Other 50 Number 0 0 0 0 Bowel Movements Output, 25 50 50 150 0 Gastric Drainage Output, Urine 460 1130 400 300 90 Patient 68.152 kg 68.152 kg 66.763 kg Weight Physical Exam: General Appearance: sedated, intubated Ears, Nose, Throat: ET tube in place Neck: Right IJ Respiratory: normal breath sounds Cardiovascular: regular rate/rhythm, no murmurs Gastrointestinal: normal bowel sounds, soft, non-tender Extremities: no edema Neurologic/Psych: unresponsive Skin: intact, normal color Current Medications: Current Medications Sig/Marcos Start time Last Medication Dose Route Stop Time Status Admin Acetaminophen 1,000 MG Q6P PRN 01/10 1815 AC IV Amiodarone HCl/ 360 MG Q12H 01/10 1630 AC 01/12 Dextrose IV 0411 N/A 1 UNIT Ampicillin Sodium/ 3,000 MG Q6 01/10 1807 01/12 Sulbactam Sodium IV 0557 Sodium Chloride 100 ML Dextrose/Sodium 1,000 ML Q13H 01/11 2245 01/11 Chloride IV 2240 Insulin Human Regular 0 Q6 01/10 1816 01/12 SC 0550 Levetiracetam 1,000 MG BID 01/11 1000 AC 01/11 Sodium Chloride 100 ML IV 2220 Levetiracetam 500 MG Q8 01/10 2200 SD 01/11 Sodium Chloride 100 ML IV 0520 Lorazepam 50 MG Q16H 01/10 2200 01/11 Dextrose/Water 500 ML IV 1532 Magnesium Sulfate 2 GM ONCE ONE 01/12 0330 CAN Dextrose/Water 250 ML IV 01/12 0729 Morphine Sulfate 2 MG Q4P PRN 01/10 181 IV Norepinephrine 4 MG Q6 01/11 2359 01/12 Sodium Chloride 250 ML IV 0411 Norepinephrine 4 MG Q6 01/11 0600 SD 01/11 Sodium Chloride 250 ML IV 1716 Pantoprazole Sodium 40 MG DAILY 01/10 181 01/11 IV 0957 Potassium Chloride 20 MEQ Q1H 01/12 0345 CAN IV 01/12 0446 Potassium Chloride 20 MEQ ONCE ONE 01/12 0330 CAN IV 01/12 0331 Propofol 1,000 MG Q8H 01/10 220 01/12 N/A 100 ML IV 0413 Sodium Chloride 1,000 ML .Q10H 01/10 1815 SD 01/11 IV 2040 Valproate Sodium 500 MG Q8 01/11 2200 01/12 Sodium Chloride 100 ML IV 0504 Valproate Sodium 1,000 MG ONCE ONE 01/11 1145 DC 01/11 Sodium Chloride 100 ML IV 01/11 1250 1245 Valproate Sodium 1,000 MG ONCE ONE 01/11 0945 SD 01/11 Sodium Chloride 100 ML IV 01/11 1044 1003 Vancomycin HCl 1,000 MG ONCE ONE 01/12 0800 AC Dextrose/Water 250 ML IV 01/12 0859 Results Last 24 Hours of Lab Results: Laboratory Tests 01/12 01/12 0600 0150 Blood Gas pH (7.35 - 7.45 PH) 7.42 pCO2 (35 - 45 TORR) 18 L pO2 (80 - 100 TORR) 98 HCO3 (21 - 28 MEQ/L) 11 L ABG O2 Sat (Measured) (>96.0 %) 97.0 P-50 (Temp Corrected) N Carboxyhemoglobin (1.5 - 5.0 %) 0.2 L O2 Concentration % .40 Respiration Rate (BPM) 28 O2 Delivery Method VENT Vent Mode A/C Expiratory Pressure (CMH2O/P) 5 Tidal Volume (CC) 550 Chemistry Sodium (137 - 145 mmol/L) Cancelled 150 H Potassium (3.5 - 5.1 mmol/L) Cancelled 3.0 L Chloride (98 - 107 mmol/L) Cancelled 121 H Carbon Dioxide (22 - 30 mmol/L) Cancelled 12 L Anion Gap (5 - 16) Cancelled 17 H BUN (9 - 20 mg/dL) Cancelled 18 Creatinine (0.7 - 1.2 mg/dL) Cancelled 0.7 Estimated GFR (>60 ml/min) > 60 Glucose (65 - 99 mg/dL) Cancelled 164 H Calcium (8.4 - 10.2 mg/dL) Cancelled 7.7 L Phosphorus (2.5 - 4.5 mg/dL) Cancelled 1.3 L Magnesium (1.6 - 2.3 mg/dL) Cancelled 1.6 Total Bilirubin (0.2 - 1.3 mg/dL) Cancelled 0.6 AST (17 - 59 U/L) Cancelled 99 H ALT (21 - 72 U/L) Cancelled 139 H Albumin (3.5 - 5.0 g/dL) Cancelled 2.2 L Coagulation PT (9.4 - 12.5 SEC) 15.0 H INR (0.90 - 1.17) 1.43 H APTT (25 - 37 SEC) 29 Fibrinogen Activity (200 - 393 MG/DL) 243 Fibrin Degrad Products (< 10 ug/ml) > 40 ug/ml H Hematology CBC w Diff Cancelled MAN DIFF ORDERED WBC (4.8 - 10.8 /CUMM) Cancelled 20.8 H RBC (4.70 - 6.10 /CUMM) Cancelled 3.04 L Hgb (14.0 - 18.0 G/DL) Cancelled 9.1 L Hct (42 - 52 %) Cancelled 26.4 L MCV (80.0 - 94.0 FL) Cancelled 86.9 MCH (27.0 - 31.0 PG) Cancelled 30.0 RDW (11.5 - 14.5 %) Cancelled 14.4 Plt Count (130 - 400 /CUMM) Cancelled 156 MPV (7.4 - 10.4 FL) Cancelled 10.2 Gran % (42.2 - 75.2 %) 89.3 H Lymphocytes % (20.5 - 51.1 %) 7.1 L Monocytes % (1.7 - 9.3 %) 3.6 Eosinophils % (0 - 5 %) 0 Basophils % (0.0 - 2.0 %) 0 L Absolute Granulocytes (1.4 - 6.5 /CUMM) 18.6 H Absolute Lymphocytes (1.2 - 3.4 /CUMM) 1.5 Absolute Monocytes (0.10 - 0.60 /CUMM) 0.8 H Absolute Eosinophils (0.0 - 0.7 /CUMM) 0 Absolute Basophils (0.0 - 0.2 /CUMM) 0 Platelet Estimate (ADEQUATE) ADEQUATE Poikilocytosis 2+ Mcbee Cells 2+ PUBS MCHC (33.0 - 37.0 G/DL) Cancelled 34.5 Miscellaneous Phlebotomy Draw Site RIGHT RADIAL 01/11 Urines Urinalysis MOD H Urine Color (YEL,AMB,STR) YEL Urine Clarity (CLEAR) HAZY H Urine pH (5.0 - 8.0) 6.0 Ur Specific [place] (1.001 - 1.035) <= 1.005 Urine Protein (NEG,<30 MG/DL) NEG Urine Ketones (NEG) TRACE H Urine Nitrite (NEG) NEG Urine Bilirubin (NEG) NEG Urine Urobilinogen (0.1 - 1.0 EU/dl) 0.2 Ur Leukocyte Esterase (NEG) NEG Ur Microscopic SEDIMENT EXAMINED Urine RBC (0 - 5 /HPF) 5-10 H Urine WBC (0 - 2 /HPF) 1-3 H Urine Bacteria (NEG/NONE) FEW H Granular Casts (NONE /LPF) RARE H Urine Hemoglobin (NEG) LARGE H Urine Osmolality (300 - 1000 MOSM/KG) 191 L Ur Random Creatinine (mg/dL) 12.3 Ur Random Sodium (30 - 90 mmol/L) 21 L Ur Random Potassium (mmol/L) 18.9 Fraction Sodium Excret (<1% %) 0.9 Urine Glucose (N MG/DL) NEG 01/11 1400 0945 Chemistry Sodium (137 - 145 mmol/L) 151 H 146 H Potassium (3.5 - 5.1 mmol/L) 3.3 L 3.5 Chloride (98 - 107 mmol/L) 121 H 118 H Carbon Dioxide (22 - 30 mmol/L) 14 L 18 L Anion Gap (5 - 16) 16 10 BUN (9 - 20 mg/dL) 19 24 H Creatinine (0.7 - 1.2 mg/dL) 0.8 0.8 Estimated GFR (>60 ml/min) > 60 > 60 Glucose (65 - 99 mg/dL) 125 H 135 H Serum Osmolality (285 - 295 MOSM/KG) 316 H Lactic Acid (0.7 - 2.1 mmol/L) 4.1 H Calcium (8.4 - 10.2 mg/dL) 7.7 L 7.4 L Phosphorus (2.5 - 4.5 mg/dL) 1.5 L 2.5 Magnesium (1.6 - 2.3 mg/dL) 1.7 1.6 Total Bilirubin (0.2 - 1.3 mg/dL) 0.6 0.6 AST (17 - 59 U/L) 126 H 207 H ALT (21 - 72 U/L) 157 H 191 H Albumin (3.5 - 5.0 g/dL) 2.4 L 2.4 L Coagulation PT (9.4 - 12.5 SEC) 14.7 H 14.1 H INR (0.90 - 1.17) 1.40 H 1.35 H APTT (25 - 37 SEC) 30 30 Fibrinogen Activity (200 - 393 MG/DL) 204 177 L Fibrin Degrad Products (< 10 ug/ml) > 40 ug/ml H > 40 ug/ml H D-Dimer (70 - 232 ng/ml) > 5250 H > 5250 H Assessment/Plan Assessment/Recommendations: Mr. Robb is an 81-year-old male with multiple co-morbidities who presented to the hospital with an out of hospital cardiac arrest status post CPR and ROSC. He is current intubated, sedated, and undergoing therapeutic hypothermia therapy. Neurological status has not returned. Blood work noted reactive leukocytosis. Platelet count is normal. DIC panel noted elevated FDP. DIC panel improving. Hemoglobin decreasing. This is likely from therapeutic hypothermia therapy. He has no bleeding. His overall prognosis is poor. Recommendations: 1. Check DIC daily, replete fibrinogen with cryo if <100 2. Monitor for infection and bleeding 3. Critical care as per ICU team Please call [phone] with any questions Problem List: 1. DIC (disseminated intravascular coagulation) 2. Cardiac arrest 3. CAD (coronary artery disease)
--- NOTE | 2017-01-12 11:10 | NUR ---
PT REMAINS UNRESPONSIVE, W/O CORNEAL, GAG AND PAIN REFLEXES. PUPILS 2MM AND FIXED. PT HAS SMALL AMT OF SEIZURE LIKE ACTIVITY WITH REPOSITIONING. REMAINS ON PROPOFOL GTT, DEPAKOTE AND KEPPRA IV. ATIVAN OFF PER DR TOURE. PT BP IS LABILE 80-110'S, LEVOPHED IS AT 20MCG. CVP 11. PT IS IN A PACED RHYTHM W A BBB AT 70 BPM. REMAINS INTUBATED; AC 18 550 40 5, SATS 96-98. SCATTERED RHONCHI PRESENT. ABDOMEN SOFT/DISTENDED WITH HYPOACTIVE BOWEL SOUNDS. OGT IN PLACE TO LWS WITH THICK TONG OUTPUT. SOMMERS INSITU W MINIMAL U.O, APPRO 20 ML/HR, YELLOW W SED AT TIMES. REAMINS ON HYPOTHERMIA PROTOCOL; IN REWARMING PHASE. CURRENT TEMP AT 96.0. BC X 2 SETS +, PT STARTED ON VANCO AND CONTINUES UNASYN Q 6. IVF D5 1/2 NS AT 75ML/HR. Q6 ACCUCHECKS MONITORED AND 1200 LABS TO BE OBTAINED.
[2017-01-12 12:34] LABS: ABSOLUTE BASOPHIL COUNT 0 /CUMM (0.0-0.2); ABSOLUTE EOSINOPHIL COUNT 0 /CUMM (0.0-0.7); ABSOLUTE GRANULOCYTE CT 19.5 /CUMM (1.4-6.5); ABSOLUTE LYMPH COUNT 0.8 /CUMM (1.2-3.4); ABSOLUTE MONOCYTE COUNT 0.9 /CUMM (0.10-0.60); BASOPHIL % 0.1 % (0.0-2.0); EOSINOPHIL % 0 % (0-5); GRANULOCYTE % 91.9 % (42.2-75.2); HEMATOCRIT 26.1 % (42-52); MEAN CORPUSCULAR HGB 29.2 PG (27.0-31.0); MEAN CORPUSCULAR HGB CONC 33.4 G/DL (33.0-37.0); MEAN CORPUSCULAR VOLUME 87.3 FL (80.0-94.0); MEAN PLATELET VOLUME 9.7 FL (7.4-10.4); PLATELET COUNT 154 /CUMM (130-400); RBC DISTRIBUTION WIDTH 14.5 % (11.5-14.5); RED BLOOD CELL CT 2.99 /CUMM (4.70-6.10); WHITE BLOOD CELL COUNT 21.2 /CUMM (4.8-10.8)
[2017-01-12 12:43] LABS: PT 15.2 SEC (9.4-12.5); PTT 30 SEC (25-37)
--- NOTE | 2017-01-12 13:01 | Event Note ---
Event Note Event Note: I was called by the nursing staff who picked up qual field manager changes for Mr. Robb. Apparently, he was not following a paced rhythm at times, round 1220hrs, and instead not every pacemaker impulse generated a wide QRS complex as expected earlier. This was unusual so far, but also could have been because of the changes in potassium levels and other electrolytes now that he is warm. 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 -Patient reassessed -Propofol was increased to 50 in order to control seizure, which controlled it. Plan to decrease propofol slightly if possible (for example at 45). -Electrolytes were repeated -Cardiology and neurology service contacted immediately. Requested immediate callback. -Per Dr Bermudez (thermograph operator), we will keep monitoring his vitals closely, and if his blood pressure decreases further then plan to go ahead with Luis- Synephrine and if needed further, vasopressin, as planned by Dr Mcdermott earlier. -Per Dr Santana (neurologist), we will check a level of valproic acid, and give additional dose of valproic acid if it is not well within therapeutic level, but will change to another form of antiseizure medication if the patient is still getting seizures while being well within the therapeutic level. Dose of Keppra changed from twice a day to every 6 hours. -Orders carried out accordingly. -Family informed. Resident aware of ongoing discussions with consultants. Update: Level of Valproic acid: 56.5 (reference range 50-120). -Loading dose of Valproic acid 1gram IV given STAT. -Will follow valproic acid level daily from now on. -Resident Dr Banuelos aware and agrees to the plan.
--- NOTE | 2017-01-12 14:19 | PN- Cardiology ---
Subjective Subjective: The Patient remains unresponsive. He is having some seizure activity and propofol has been increased. He has been rewarmed. His pupils remained pinpoint. We have increased his pacemaker rate to 70 and he is now fully paced at 70. He is still on levophed, propofol, amiodarone. Echocardiogram shows evidence of old [place] with ejection fraction of 35-40%. Right ventricular systolic pressure was elevated at 45 mmHg. Objective Vital Signs and I&Os Vital Signs Date Time Temp Pulse Resp B/P Pulse O2 O2 Flow FiO2 Ox Delivery Rate 01/12 1200 71 81/42 / 1151 40 01/12 0807 40 01/12 0800 98 Ventilator 40% 01/12 0800 95.2 70 18 114/60 98 Ventilator 40% 01/12 0606 40 01/12 0411 70 102/47 01/12 0411 70 102/47 01/12 0400 97 Ventilator 40% 01/12 0257 40 01/12 0034 50 / 0000 91.5 70 28 100/52 99 Ventilator 100% 01/12 0000 99 Ventilator 50% 01/11 2258 70 104/55 01/11 2245 50 01/11 2222 70 97/52 01/11 2020 50 01/11 2000 100 Ventilator 50% 01/11 1630 50 01/11 1600 99 Ventilator 50% 01/11 1600 93.0 112 28 110/64 100 Ventilator 50% 01/11 1442 50 Intake & Output / 1600 / 0800 / 0000 01/11 1600 01/11 0800 01/11 0000 Intake Total 1480 2742 1841.8 3573 2015 Output Total 485 1180 450 450 90 Balance 995 1562 1391.8 3123 1926 Intake, IV 1480 2692 1841.8 3573 2015 Intake, Oral 0 0 0 Intake, Other 50 Number 0 0 0 0 Bowel Movements Output, 25 50 50 150 0 Gastric Drainage Output, Urine 460 1130 400 300 90 Patient 161 lb 160 lb 150 lb 150 lb 147 lb Weight Physical Exam: He is unresponsive. HEENT exam grossly normal, pupils pinpoint. Chest is aerating well Heart regular rhythm no murmurs Extremities no edema Neurologic unresponsive but he is still on propofol Current Medications: Current Medications Sig/Marcos Start time Last Medication Dose Route Stop Time Status Admin Acetaminophen 1,000 MG Q6P PRN 02/27 1815 AC IV Amiodarone HCl/ 360 MG Q12H 01/10 1630 AC 01/12 Dextrose IV 0411 N/A 1 UNIT Ampicillin Sodium/ 3,000 MG Q6 01/10 1807 01/12 Sulbactam Sodium IV 1200 Sodium Chloride 100 ML Dextrose/Sodium 1,000 ML Q13H 01/11 2245 01/12 Chloride IV 1031 Heparin Sodium 5,000 UNIT Q8 01/12 0840 01/12 (Porcine) SC 1307 Insulin Human Regular 0 Q6 01/10 1816 01/12 SC 1303 Levetiracetam 1,000 MG BID 01/11 1000 01/12 Sodium Chloride 100 ML IV 1029 Lorazepam 50 MG Q16H 01/10 2200 DC 01/11 Dextrose/Water 500 ML IV 1532 Magnesium Sulfate 1 GM Q2H 01/12 1315 AC Dextrose/Water 100 ML IV 01/12 1714 Magnesium Sulfate 2 GM ONCE ONE 01/12 0330 CAN Dextrose/Water 250 ML IV 01/12 0729 Morphine Sulfate 2 MG Q4P PRN 01/10 1815 IV Norepinephrine 4 MG Q3 01/12 1200 AC 01/12 Sodium Chloride 250 ML IV 1200 Norepinephrine 4 MG Q6 01/11 2359 DC 01/12 Sodium Chloride 250 ML IV 0411 Norepinephrine 4 MG Q6 01/11 0600 DC 01/11 Sodium Chloride 250 ML IV 1716 Pantoprazole Sodium 40 MG DAILY 01/10 1810 AC 01/12 IV 1028 Potassium Chloride 20 MEQ Q1H 01/12 1315 DC IV 01/12 1416 Potassium Chloride 20 MEQ Q1H 01/12 0345 CAN IV 01/12 0446 Potassium Chloride 20 MEQ ONCE ONE 01/12 0330 CAN IV 01/12 0331 Propofol 1,000 MG Q8H 01/10 2200 AC 01/12 N/A 100 ML IV 1044 Sodium Chloride 1,000 ML .Q10H 01/10 1815 DC 01/11 IV 2040 Valproate Sodium 500 MG Q8 01/11 2200 01/12 Sodium Chloride 100 ML IV 1304 Vancomycin HCl 1,000 MG ONCE ONE 01/12 0800 DC 01/12 Dextrose/Water 250 ML IV 01/12 0859 1025 Results Last 48 Hrs of Labs/Mics: Laboratory Tests 01/12/17 1200: Anion Gap 12, Estimated GFR > 60, Glucose 223 H, Lactic Acid 2.7 H, Calcium 7.3 L, Phosphorus 2.6, Magnesium 1.6, Total Bilirubin 0.5, AST 70 H, ALT 118 H, Albumin 2.1 L, PT 15.2 H, INR 1.45 H, APTT 30, Fibrinogen Activity 258, Fibrin Degrad Products > 40 ug/ml H, CBC w Diff MAN DIFF ORDERED, RBC 2.99 L, MCV 87.3, MCH 29.2, RDW 14.5, MPV 9.7, Gran % 91.9 H, Lymphocytes % 3.8 L, Monocytes % 4.2, Eosinophils % 0, Basophils % 0.1, Absolute Granulocytes 19.5 H , Segmented Neutrophils 87 H, Band Neutrophils 8 H, Absolute Lymphocytes 0.8 L, Lymphocytes 4 L, Monocytes 1 L, Absolute Monocytes 0.9 H, Absolute Eosinophils 0, Absolute Basophils 0, Platelet Estimate VERIFIED BY SMEAR, Polychromasia 1+, Poikilocytosis 2+, Ovalocytes 1+, Fernando Cells 2+, PUBS MCHC 33.4 01/12/17 0955: pH 7.33 L, pCO2 26 L, pO2 79 L, HCO3 13 L, ABG O2 Sat (Measured) 94.0 L, Carboxyhemoglobin 0.2 L, O2 Concentration % .4, Respiration Rate 18, O2 Delivery Method VENT, Vent Mode AC, Expiratory Pressure 5, Tidal Volume 550, Phlebotomy Draw Site RIGHT RADIAL 01/12/17 0600: pH 7.42, pCO2 18 L, pO2 98, HCO3 11 L, ABG O2 Sat (Measured) 97.0, P-50 (Temp Corrected) N, Carboxyhemoglobin 0.2 L, O2 Concentration % .40, Respiration Rate 28, O2 Delivery Method VENT, Vent Mode A/C, Expiratory Pressure 5, Tidal Volume 550, Sodium Cancelled, Potassium Cancelled, Chloride Cancelled, Carbon Dioxide Cancelled, Anion Gap Cancelled, BUN Cancelled, Creatinine Cancelled, Glucose Cancelled, Calcium Cancelled, Phosphorus Cancelled, Magnesium Cancelled, Total Bilirubin Cancelled, AST Cancelled, ALT Cancelled, Albumin Cancelled, CBC w Diff Cancelled, WBC Cancelled, RBC Cancelled, Hgb Cancelled, Hct Cancelled, MCV Cancelled, MCH Cancelled, RDW Cancelled, Plt Count Cancelled, MPV Cancelled, PUBS MCHC Cancelled, Phlebotomy Draw Site RIGHT RADIAL 01/12/17 0150: Anion Gap 17 H, Estimated GFR > 60, Glucose 164 H, Calcium 7.7 L, Phosphorus 1.3 L, Magnesium 1.6, Total Bilirubin 0.6, AST 99 H, ALT 139 H, Albumin 2.2 L, PT 15.0 H, INR 1.43 H, APTT 29, Fibrinogen Activity 243, Fibrin Degrad Products > 40 ug/ml H, CBC w Diff MAN DIFF ORDERED, RBC 3.04 L, MCV 86.9, MCH 30.0, RDW 14.4, MPV 10.2, Gran % 89.3 H, Lymphocytes % 7.1 L, Monocytes % 3.6, Eosinophils % 0, Basophils % 0 L, Absolute Granulocytes 18.6 H, Absolute Lymphocytes 1.5, Absolute Monocytes 0.8 H, Absolute Eosinophils 0, Absolute Basophils 0, Platelet Estimate ADEQUATE, Poikilocytosis 2+, Marshall Cells 2+, PUBS MCHC 34.5 01/11/17 2020: Urinalysis MOD H, Urine Color YEL, Urine Clarity HAZY H, Urine pH 6.0, Ur Specific [place] <= 1.005, Urine Protein NEG, Urine Ketones TRACE H, Urine Nitrite NEG, Urine Bilirubin NEG, Urine Urobilinogen 0.2, Ur Leukocyte Esterase NEG, Ur Microscopic SEDIMENT EXAMINED, Urine RBC 5-10 H, Urine WBC 1-3 H, Urine Bacteria FEW H, Granular Casts RARE H, Urine Hemoglobin LARGE H, Urine Glucose NEG 01/11/172019: Urine Osmolality 191 L, Ur Random Creatinine 12.3, Ur Random Sodium 21 L, Ur Random Potassium 18.9, Fraction Sodium Excret 0.9 01/11/17 2014: Anion Gap 16, Estimated GFR > 60, Glucose 125 H, Serum Osmolality 316 H, Calcium 7.7 L, Phosphorus 1.5 L, Magnesium 1.7, Total Bilirubin 0.6, AST 126 H, ALT 157 H, Albumin 2.4 L, PT 14.7 H, INR 1.40 H, APTT 30, Fibrinogen Activity 204, Fibrin Degrad Products > 40 ug/ml H, D-Dimer > 5250 H 01/11/17 1400: PT 14.1 H, INR 1.35 H, APTT 30, Fibrinogen Activity 177 L, Fibrin Degrad Products > 40 ug/ml H, D-Dimer > 5250 H 01/11/17 0945: Anion Gap 10, Estimated GFR > 60, Glucose 135 H, Lactic Acid 4.1 H, Calcium 7.4 L, Phosphorus 2.5, Magnesium 1.6, Total Bilirubin 0.6, AST 207 H, ALT 191 H, Albumin 2.4 L 01/11/17 0650: Anion Gap 14, Estimated GFR > 60, Glucose 195 H, Calcium 7.3 L, Phosphorus 3.3 , Magnesium 1.6, Total Bilirubin 0.6, AST 242 H, ALT 204 H, Troponin I 0.77 *H , Albumin 2.4 L, Fibrinogen Activity 144 L, Fibrin Degrad Products > 40 ug/ml H, D-Dimer > 5250 H 01/11/17 0105: Anion Gap 15, Estimated GFR > 60, Glucose 269 H, Calcium 7.7 L, Phosphorus 3.8 , Magnesium 1.8, Total Bilirubin 0.7, AST 291 H, ALT 252 H, Albumin 2.8 L, PT 16.2 H, INR 1.55 H, APTT 33, Fibrinogen Activity 105 L, Fibrin Degrad Products > 40 ug/ml H, D-Dimer > 5250 H, CBC w Diff MAN DIFF ORDERED, RBC 3.78 L, MCV 87.1, MCH 29.9, RDW 14.0, MPV 9.2, Gran % 92.8 H, Lymphocytes % 1.9 L, Monocytes % 5.3, Eosinophils % 0, Basophils % 0 L, Absolute Granulocytes 23.3 H, Segmented Neutrophils 83 H, Band Neutrophils 10 H, Absolute Lymphocytes 0.5 L, Lymphocytes 5 L, Monocytes 2, Absolute Monocytes 1.3 H, Absolute Eosinophils 0, Absolute Basophils 0, Platelet Estimate ADEQUATE, Poikilocytosis 2+, Fernando Cells 2+, PUBS MCHC 34.3 01/11/17 0045: pH 7.24 *L, pCO2 27 L, pO2 128 H, HCO3 11 L, ABG O2 Sat (Measured) 98.0, P-50 (Temp Corrected) N, Carboxyhemoglobin 0.3 L, O2 Concentration % 100, Respiration Rate 28, O2 Delivery Method VENT, Vent Mode A/C, Expiratory Pressure 5, Tidal Volume 550, Phlebotomy Draw Site RIGHT RADIAL 01/10/17 7299: Anion Gap 17 H, Estimated GFR > 60, Glucose 287 H, Calcium 8.1 L, Phosphorus 4.3, Magnesium 1.9, Total Bilirubin 0.6, AST 329 H, ALT 284 H, Troponin I 0.75 *H, Albumin 3.0 L 01/10/17 1950: pH 7.26 *L, pCO2 29 L, pO2 96, HCO3 13 L, ABG O2 Sat (Measured) 95.0 L, P-50 (Temp Corrected) N, Carboxyhemoglobin 0.3 L, O2 Concentration % 100%, Temperature 98.0, Respiration Rate 26, O2 Delivery Method ESPRIT, Vent Mode AC, Expiratory Pressure 5, Tidal Volume 550, Phlebotomy Draw Site RIGHT RADIAL 01/10/17 1820: Urine Color YEL, Urine Clarity HAZY H, Urine pH 6.0, Ur Specific [place] >= 1.030, Urine Protein >=300 H, Urine Ketones NEG, Urine Nitrite NEG, Urine Bilirubin NEG, Urine Urobilinogen 1.0, Ur Leukocyte Esterase NEG, Ur Microscopic SEDIMENT EXAMINED, Urine RBC 15-25 H, Ur Epithelial Cells RARE, Urine Bacteria MOD H, Granular Casts 5-10 H, Urine Hemoglobin LARGE H, Urine Glucose NEG 01/10/17 1602: Anion Gap 23 H, Estimated GFR > 60, BUN/Creatinine Ratio 18.9, Glucose 251 H, Calcium 8.7, Phosphorus 8.4 H, Magnesium 2.4 H, Total Bilirubin 0.6, AST 374 H, ALT 327 H, Alkaline Phosphatase 86, Troponin I < 0.01, Total Protein 6.4, Albumin 3.4 L, Globulin 3.0, Albumin/Globulin Ratio 1.1, PT 12.7 H, INR 1.21 H, APTT 32, CBC w Diff MAN DIFF ORDERED, RBC 4.57 L, MCV 89.1, MCH 29.6, RDW 14.4, MPV 10.2, Gran % 71.1, Lymphocytes % 24.7, Monocytes % 3.1, Eosinophils % 0.9, Basophils % 0.2, Absolute Granulocytes 14.1 H, Segmented Neutrophils 53, Band Neutrophils 22 H, Absolute Lymphocytes 4.9 H, Lymphocytes 23, Monocytes 1 L, Absolute Monocytes 0.6, Eosinophils 1, Absolute Eosinophils 0.2, Absolute Basophils 0, Platelet Estimate VERIFIED BY SMEAR, Poikilocytosis 1+, Fernando Cells 1+, PUBS MCHC 33.3, Fld Total RBCs Counted 100 01/10/17 1600: pH 7.11 *L, pCO2 35, pO2 73 L, HCO3 11 L, ABG O2 Sat (Measured) 87.0 L, Carboxyhemoglobin 1.0 L, O2 Concentration % 100%, Respiration Rate 16, O2 Delivery Method ESPRIT VENT, Vent Mode AC, Expiratory Pressure 5, Tidal Volume 550, Phlebotomy Draw Site RIGHT RADIAL Microbiology 01/10 2100 LOWER RESP: Respiratory Culture - COMP 01/10 2100 LOWER RESP: Gram Stain - COMP 01/10 2010 UPPER RESP: Surveillance Culture - COMP 01/10 2010 GI: Surveillance Culture - COMP 01/10 1607 URINE ROUT: Urine Culture - COMP Recent Imaging Studies: CONCLUSIONS The left ventricle is upper normal normal limits in size. Left ventricular wall thickness was upper normal limits. The interventricular septum appears to contract well. The inferior and posterior gonzáles are hypo-to akinetic. Apical views are suboptimal. Estimated ejection fraction is probably 35-40% visually. Catheter/pacemaker wire in the right ventricular cavity. Mild to moderate left atrial dilatation. Mild thickening/calcification of the anterior mitral valve leaflet. Focal thickening of the aortic valve cusps. No aortic stenosis. Right ventricular systolic pressure estimated to be elevated at 40- 45 mmHg. Milton Bermudez M.D. (Electronically Signed) Final Date: 11 January 2017 18:22 Assessment/Plan Assessment/Plan The patient is unresponsive after cardiac arrest. He has underlying heart disease. He is maintaining a blood pressure on levophed. Neurologic status is poor but final determination is pending. He has some positive cardiac enzymes which is likely demand ischemia in the setting of underlying coronary disease. His heart rate has been increased by increasing the rate on his defibrillator to 70. His echocardiogram shows reduced left ventricular systolic function. There is no evidence of congestive heart failure. I recommend to continue support and continuing on amiodarone for now. Neurologic follow-up will be important in his prognosis. Continue telemetry? Not applicable
--- NOTE | 2017-01-12 14:45 | PN- Neurology ---
Subjective Subjective: s/p anoxic event and cooling presently back on propofol due to recurrent seizures on levetiracetam 1000 q 12 Hrand valproate 500 q 8 HR Review of Systems: obtunded Objective Vital Signs and I&Os Vital Signs Date Time Temp Pulse Resp B/P Pulse O2 O2 Flow FiO2 Ox Delivery Rate 01/12 1424 40 01/12 1200 71 81/42 01/12 1151 40 01/12 0807 40 01/12 0800 98 Ventilator 40% 01/12 0800 95.2 70 18 114/60 98 Ventilator 40% 01/12 0606 40 01/12 0411 70 102/47 01/12 0411 70 102/47 01/12 0400 97 Ventilator 40% 01/12 0257 40 01/12 0034 50 01/12 0000 91.5 70 28 100/52 99 Ventilator 100% 01/12 0000 99 Ventilator 50% 01/11 2258 70 104/55 01/11 2245 50 01/11 2222 70 97/52 01/11 2020 50 01/11 2000 100 Ventilator 50% 01/11 1630 50 01/11 1600 99 Ventilator 50% 01/11 1600 93.0 112 28 110/64 100 Ventilator 50% 01/11 1442 50 Intake & Output 01/12 1600 01/12 0800 01/12 0000 01/11 1600 01/11 0800 01/11 0000 Intake Total 1480 2742 1841.8 3573 2015 Output Total 485 1180 450 450 90 Balance 995 1562 1391.8 3123 1926 Intake, IV 1480 2692 1841.8 3573 2015 Intake, Oral 0 0 0 Intake, Other 50 Number 0 0 0 0 Bowel Movements Output, 25 50 50 150 0 Gastric Drainage Output, Urine 460 1130 400 300 90 Patient 161 lb 160 lb 150 lb 150 lb 147 lb Weight on propofol: 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, 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, pupils not react no movement to noxious stimuli not over riding respirator Current Medications: Current Medications Sig/Marcos Start time Last Medication Dose Route Stop Time Status Admin Acetaminophen 1,000 MG Q6P PRN 01/10 1815 AC IV Amiodarone HCl/ 360 MG Q12H 01/10 1630 AC 01/12 Dextrose IV 0411 N/A 1 UNIT Ampicillin Sodium/ 3,000 MG Q6 01/10 1807 AC 01/12 Sulbactam Sodium IV 1200 Sodium Chloride 100 ML Dextrose/Sodium 1,000 ML Q13H 01/11 2245 01/12 Chloride IV 1031 Heparin Sodium 5,000 UNIT Q8 01/12 0840 01/12 (Porcine) SC 1307 Insulin Human Regular 0 Q6 01/10 1816 AC 01/12 SC 1303 Levetiracetam 1,000 MG BID 01/11 1000 AC 01/12 Sodium Chloride 100 ML IV 1029 Lorazepam 50 MG Q16H 01/10 2200 DC 01/11 Dextrose/Water 500 ML IV 1532 Magnesium Sulfate 1 GM Q2H 01/12 1315 01/12 Dextrose/Water 100 ML IV 01/12 1714 1424 Magnesium Sulfate 2 GM ONCE ONE 01/12 0330 CAN Dextrose/Water 250 ML IV 01/12 0729 Morphine Sulfate 2 MG Q4P PRN 01/10 181 IV Norepinephrine 4 MG Q3 01/12 1200 AC 01/12 Sodium Chloride 250 ML IV 1200 Norepinephrine 4 MG Q6 01/11 2359 DC 01/12 Sodium Chloride 250 ML IV 0411 Norepinephrine 4 MG Q6 01/11 0600 DC 01/11 Sodium Chloride 250 ML IV 1716 Pantoprazole Sodium 40 MG DAILY 01/10 1810 01/12 IV 1028 Potassium Chloride 20 MEQ Q1H 01/12 1315 DC 01/12 IV 01/12 1416 1424 Potassium Chloride 20 MEQ Q1H 01/12 0345 CAN IV 01/12 0446 Potassium Chloride 20 MEQ ONCE ONE 01/12 0330 CAN IV 01/12 0331 Propofol 1,000 MG Q8H 01/10 2200 01/12 N/A 100 ML IV 1044 Sodium Chloride 1,000 ML .Q10H 01/10 1815 DC 01/11 IV 2040 Valproate Sodium 500 MG Q8 01/11 2200 01/12 Sodium Chloride 100 ML IV 1304 Vancomycin HCl 1,000 MG ONCE ONE 01/12 0800 DC 01/12 Dextrose/Water 250 ML IV 01/12 0859 1025 Results Last 24 Hours of Lab Results: Laboratory Tests 01/12 01/12 1200 0955 Blood Gas pH (7.35 - 7.45 PH) 7.33 L pCO2 (35 - 45 TORR) 26 L pO2 (80 - 100 TORR) 79 L HCO3 (21 - 28 MEQ/L) 13 L ABG O2 Sat (Measured) (>96.0 %) 94.0 L Carboxyhemoglobin (1.5 - 5.0 %) 0.2 L O2 Concentration % .4 Respiration Rate (BPM) 18 O2 Delivery Method VENT Vent Mode AC Expiratory Pressure (CMH2O/P) 5 Tidal Volume (CC) 550 Chemistry Sodium (137 - 145 mmol/L) 147 H Potassium (3.5 - 5.1 mmol/L) 3.1 L Chloride (98 - 107 mmol/L) 120 H Carbon Dioxide (22 - 30 mmol/L) 16 L Anion Gap (5 - 16) 12 BUN (9 - 20 mg/dL) 17 Creatinine (0.7 - 1.2 mg/dL) 0.9 Estimated GFR (>60 ml/min) > 60 Glucose (65 - 99 mg/dL) 223 H Lactic Acid (0.7 - 2.1 mmol/L) 2.7 H Calcium (8.4 - 10.2 mg/dL) 7.3 L Phosphorus (2.5 - 4.5 mg/dL) 2.6 Magnesium (1.6 - 2.3 mg/dL) 1.6 Total Bilirubin (0.2 - 1.3 mg/dL) 0.5 AST (17 - 59 U/L) 70 H ALT (21 - 72 U/L) 118 H Albumin (3.5 - 5.0 g/dL) 2.1 L Coagulation PT (9.4 - 12.5 SEC) 15.2 H INR (0.90 - 1.17) 1.45 H APTT (25 - 37 SEC) 30 Fibrinogen Activity (200 - 393 MG/DL) 258 Fibrin Degrad Products (< 10 ug/ml) > 40 ug/ml H Hematology CBC w Diff MAN DIFF ORDERED WBC (4.8 - 10.8 /CUMM) 21.2 H RBC (4.70 - 6.10 /CUMM) 2.99 L Hgb (14.0 - 18.0 G/DL) 8.7 L Hct (42 - 52 %) 26.1 L MCV (80.0 - 94.0 FL) 87.3 MCH (27.0 - 31.0 PG) 29.2 RDW (11.5 - 14.5 %) 14.5 Plt Count (130 - 400 /CUMM) 154 MPV (7.4 - 10.4 FL) 9.7 Gran % (42.2 - 75.2 %) 91.9 H Lymphocytes % (20.5 - 51.1 %) 3.8 L Monocytes % (1.7 - 9.3 %) 4.2 Eosinophils % (0 - 5 %) 0 Basophils % (0.0 - 2.0 %) 0.1 Absolute Granulocytes (1.4 - 6.5 /CUMM) 19.5 H Segmented Neutrophils (42.2 - 75.2 %) 87 H Band Neutrophils (0.0 - 5.0 %) 8 H Absolute Lymphocytes (1.2 - 3.4 /CUMM) 0.8 L Lymphocytes (20.5 - 51.1 %) 4 L Monocytes (1.7 - 9.3 %) 1 L Absolute Monocytes (0.10 - 0.60 /CUMM) 0.9 H Absolute Eosinophils (0.0 - 0.7 /CUMM) 0 Absolute Basophils (0.0 - 0.2 /CUMM) 0 Platelet Estimate (ADEQUATE) VERIFIED BY SMEAR Polychromasia 1+ Poikilocytosis 2+ Ovalocytes 1+ Fernando Cells 2+ PUBS MCHC (33.0 - 37.0 G/DL) 33.4 Miscellaneous Phlebotomy Draw Site RIGHT RADIAL 01/12 01/12 0600 0150 Blood Gas pH (7.35 - 7.45 PH) 7.42 pCO2 (35 - 45 TORR) 18 L pO2 (80 - 100 TORR) 98 HCO3 (21 - 28 MEQ/L) 11 L ABG O2 Sat (Measured) (>96.0 %) 97.0 P-50 (Temp Corrected) N Carboxyhemoglobin (1.5 - 5.0 %) 0.2 L O2 Concentration % .40 Respiration Rate (BPM) 28 O2 Delivery Method VENT Vent Mode A/C Expiratory Pressure (CMH2O/P) 5 Tidal Volume (CC) 550 Chemistry Sodium (137 - 145 mmol/L) Cancelled 150 H Potassium (3.5 - 5.1 mmol/L) Cancelled 3.0 L Chloride (98 - 107 mmol/L) Cancelled 121 H Carbon Dioxide (22 - 30 mmol/L) Cancelled 12 L Anion Gap (5 - 16) Cancelled 17 H BUN (9 - 20 mg/dL) Cancelled 18 Creatinine (0.7 - 1.2 mg/dL) Cancelled 0.7 Estimated GFR (>60 ml/min) > 60 Glucose (65 - 99 mg/dL) Cancelled 164 H Calcium (8.4 - 10.2 mg/dL) Cancelled 7.7 L Phosphorus (2.5 - 4.5 mg/dL) Cancelled 1.3 L Magnesium (1.6 - 2.3 mg/dL) Cancelled 1.6 Total Bilirubin (0.2 - 1.3 mg/dL) Cancelled 0.6 AST (17 - 59 U/L) Cancelled 99 H ALT (21 - 72 U/L) Cancelled 139 H Albumin (3.5 - 5.0 g/dL) Cancelled 2.2 L Coagulation PT (9.4 - 12.5 SEC) 15.0 H INR (0.90 - 1.17) 1.43 H APTT (25 - 37 SEC) 29 Fibrinogen Activity (200 - 393 MG/DL) 243 Fibrin Degrad Products (< 10 ug/ml) > 40 ug/ml H Hematology CBC w Diff Cancelled MAN DIFF ORDERED WBC (4.8 - 10.8 /CUMM) Cancelled 20.8 H RBC (4.70 - 6.10 /CUMM) Cancelled 3.04 L Hgb (14.0 - 18.0 G/DL) Cancelled 9.1 L Hct (42 - 52 %) Cancelled 26.4 L MCV (80.0 - 94.0 FL) Cancelled 86.9 MCH (27.0 - 31.0 PG) Cancelled 30.0 RDW (11.5 - 14.5 %) Cancelled 14.4 Plt Count (130 - 400 /CUMM) Cancelled 156 MPV (7.4 - 10.4 FL) Cancelled 10.2 Gran % (42.2 - 75.2 %) 89.3 H Lymphocytes % (20.5 - 51.1 %) 7.1 L Monocytes % (1.7 - 9.3 %) 3.6 Eosinophils % (0 - 5 %) 0 Basophils % (0.0 - 2.0 %) 0 L Absolute Granulocytes (1.4 - 6.5 /CUMM) 18.6 H Absolute Lymphocytes (1.2 - 3.4 /CUMM) 1.5 Absolute Monocytes (0.10 - 0.60 /CUMM) 0.8 H Absolute Eosinophils (0.0 - 0.7 /CUMM) 0 Absolute Basophils (0.0 - 0.2 /CUMM) 0 Platelet Estimate (ADEQUATE) ADEQUATE Poikilocytosis 2+ Mcdonough Cells 2+ PUBS MCHC (33.0 - 37.0 G/DL) Cancelled 34.5 Miscellaneous Phlebotomy Draw Site RIGHT RADIAL 01/11 Urines Urinalysis MOD H Urine Color (YEL,AMB,STR) YEL Urine Clarity (CLEAR) HAZY H Urine pH (5.0 - 8.0) 6.0 Ur Specific [place] (1.001 - 1.035) <= 1.005 Urine Protein (NEG,<30 MG/DL) NEG Urine Ketones (NEG) TRACE H Urine Nitrite (NEG) NEG Urine Bilirubin (NEG) NEG Urine Urobilinogen (0.1 - 1.0 EU/dl) 0.2 Ur Leukocyte Esterase (NEG) NEG Ur Microscopic SEDIMENT EXAMINED Urine RBC (0 - 5 /HPF) 5-10 H Urine WBC (0 - 2 /HPF) 1-3 H Urine Bacteria (NEG/NONE) FEW H Granular Casts (NONE /LPF) RARE H Urine Hemoglobin (NEG) LARGE H Urine Osmolality (300 - 1000 MOSM/KG) 191 L Ur Random Creatinine (mg/dL) 12.3 Ur Random Sodium (30 - 90 mmol/L) 21 L Ur Random Potassium (mmol/L) 18.9 Fraction Sodium Excret (<1% %) 0.9 Urine Glucose (N MG/DL) NEG 01/11 2014 Chemistry Sodium (137 - 145 mmol/L) 151 H Potassium (3.5 - 5.1 mmol/L) 3.3 L Chloride (98 - 107 mmol/L) 121 H Carbon Dioxide (22 - 30 mmol/L) 14 L Anion Gap (5 - 16) 16 BUN (9 - 20 mg/dL) 19 Creatinine (0.7 - 1.2 mg/dL) 0.8 Estimated GFR (>60 ml/min) > 60 Glucose (65 - 99 mg/dL) 125 H Serum Osmolality (285 - 295 MOSM/KG) 316 H Calcium (8.4 - 10.2 mg/dL) 7.7 L Phosphorus (2.5 - 4.5 mg/dL) 1.5 L Magnesium (1.6 - 2.3 mg/dL) 1.7 Total Bilirubin (0.2 - 1.3 mg/dL) 0.6 AST (17 - 59 U/L) 126 H ALT (21 - 72 U/L) 157 H Albumin (3.5 - 5.0 g/dL) 2.4 L Coagulation PT (9.4 - 12.5 SEC) 14.7 H INR (0.90 - 1.17) 1.40 H APTT (25 - 37 SEC) 30 Fibrinogen Activity (200 - 393 MG/DL) 204 Fibrin Degrad Products (< 10 ug/ml) > 40 ug/ml H D-Dimer (70 - 232 ng/ml) > 5250 H Assessment/Plan Assessment: post anoxic encephalopathy and seizures Plan: increase levetiracetam to 1000mg q 6 HR adjust valproate as per serum level; if in therapeutic range and unable to wean off propofol, d/c valproate and use vimpat, loading dose 400 mg and maintenance 200 Q 12 HR prognosis remains grim
--- NOTE | 2017-01-12 15:05 | ELECTROENCEPHALOGRAM REPORT ---
Electroencephalogram Report Electroencephalogram Results Date of service: 01/12/17 Attending MD: Kristopher TOURE MD Network Field Engineer: Poncho Norman EEG Number: [id number] Test Utilizes: 21 electrode system Pertinent Hx/Physical/Neuro Findings/Clin Diagnosis: anoxic event/seizures Inpatient Medications: Current Medications Sig/Marcos Start time Last Medication Dose Route Stop Time Status Admin Acetaminophen 1,000 MG Q6P PRN 01/10 1815 AC IV Amiodarone HCl/ 360 MG Q12H 01/10 1630 AC 01/12 Dextrose IV 0411 N/A 1 UNIT Ampicillin Sodium/ 3,000 MG Q6 01/10 1807 AC 01/12 Sulbactam Sodium IV 1200 Sodium Chloride 100 ML Dextrose/Sodium 1,000 ML Q13H 01/11 2245 AC 01/12 Chloride IV 1031 Heparin Sodium 5,000 UNIT Q8 01/12 0840 AC 01/12 (Porcine) SC 1307 Insulin Human Regular 0 Q6 01/10 1816 AC 01/12 SC 1303 Levetiracetam 1,000 MG BID 01/11 1000 AC 01/12 Sodium Chloride 100 ML IV 1029 Lorazepam 50 MG Q16H 01/10 2200 DC 01/11 Dextrose/Water 500 ML IV 1532 Magnesium Sulfate 1 GM Q2H 01/12 1315 AC 01/12 Dextrose/Water 100 ML IV 01/12 1714 1424 Magnesium Sulfate 2 GM ONCE ONE 01/12 0330 CAN Dextrose/Water 250 ML IV 01/12 0729 Morphine Sulfate 2 MG Q4P PRN 01/10 1815 AC IV Norepinephrine 4 MG Q3 01/12 1200 AC 01/12 Sodium Chloride 250 ML IV 1200 Norepinephrine 4 MG Q6 01/11 2359 DC 01/12 Sodium Chloride 250 ML IV 0411 Norepinephrine 4 MG Q6 01/11 0600 DC 01/11 Sodium Chloride 250 ML IV 1716 Pantoprazole Sodium 40 MG DAILY 01/10 1810 AC 01/12 IV 1028 Potassium Chloride 20 MEQ Q1H 01/12 1315 DC 01/12 IV 01/12 1416 1424 Potassium Chloride 20 MEQ Q1H 01/12 0345 CAN IV 01/12 0446 Potassium Chloride 20 MEQ ONCE ONE 01/12 0330 CAN IV 01/12 0331 Propofol 1,000 MG Q8H 01/10 2200 AC 01/12 N/A 100 ML IV 1044 Sodium Chloride 1,000 ML .Q10H 01/10 1815 DC 01/11 IV 2040 Valproate Sodium 500 MG Q8 01/11 2200 AC 01/12 Sodium Chloride 100 ML IV 1304 Vancomycin HCl 1,000 MG ONCE ONE 01/12 0800 DC 01/12 Dextrose/Water 250 ML IV 01/12 0859 1025 Interpretation: patient on propofol no cortical activity is present Intermittend bursts of sharp waves and polysharpwaves appear throughout the recording Impression: Abnormal EEG due to loss of cortical activitywhich n\may be due to propofol and charp wave bursts which are potentially epileptogenic
--- NOTE | 2017-01-12 15:13 | NUR ---
AFTER PT COMPLETED HYPOTHERMIA PROTOCOL - REWARMING PHASE, PATIENT WAS TURNED/ REPOSITIONED, PT BP LABILE, RHYTHM CHANGES W MULTIPLE PVCS'S OCCCURED, O2 SATS DROPPED TO 89 AND PT STARTED SEIZURE LIKE ACTIVITY TO THE TRUNK/FACE, LIMBS CONTINUED TO LACK TONE/RIDGITY. DR CORTEZ AND DR BATES TO BEDSIDE TO EVALUATE PT. PROPOFOL INCREASED AND NEURO/CARDIOLOGY CONSULTED AND TO BEDSIDE TO ASSESS PT AND PROVIDE RECOMENADTIONS. ADD ON DEPAKOTE LEVEL WAS PLACED TO NOON LABS AND ELECTROLYTES ARE BEING REPLETED.
[2017-01-12 16:00] VITALS: BP 100/40
[2017-01-13] VITALS: BP 120/58
[2017-01-13 06:25] LABS: ABSOLUTE BASOPHIL COUNT 0 /CUMM (0.0-0.2); ABSOLUTE EOSINOPHIL COUNT 0 /CUMM (0.0-0.7); BASOPHIL % 0 % (0.0-2.0); EOSINOPHIL % 0 % (0-5); GRANULOCYTE % 87.7 % (42.2-75.2); MEAN CORPUSCULAR HGB 30.1 PG (27.0-31.0); MEAN CORPUSCULAR HGB CONC 34.3 G/DL (33.0-37.0); MEAN CORPUSCULAR VOLUME 87.8 FL (80.0-94.0); MEAN PLATELET VOLUME 10.4 FL (7.4-10.4); PLATELET COUNT 136 /CUMM (130-400); RBC DISTRIBUTION WIDTH 15.2 % (11.5-14.5); RED BLOOD CELL CT 2.85 /CUMM (4.70-6.10); WHITE BLOOD CELL COUNT 15.9 /CUMM (4.8-10.8)
[2017-01-13 08:00] VITALS: BP 124/54
--- NOTE | 2017-01-13 08:00 | NUR ---
REC'D THE PT ORALLY INTUBATED AND MECHANICALLY VENTILATED PER MD ORDER. LUDWIG BS ARE CLEAR BUT DIMINISHED AT THE BASES. NO SPONTANEOUS RESPIRATIONS NOTED ABOVE THE SET RATE OF 18. PT IS UNRESPONSIVE WITH NO RESPONSE TO VERBAL/TACTILE OR PAINFUL STIMULI. PUPILS ARE 2MM AND FIXED. GCS IS A 3. CONTINUES ON PROPOFOL AT 30MCG/KG/MIN WITH AN SAS OF 1. THE PT IS PACED WITH FREQUENT PVC'S. K+ IS 3.6-DR CHELSI BATES NOTIFIED,AWAITING FURTHER ORDERS. PT CONTINUES ON THE AMIODARONE GTT AT 0.5MG/MIN OR 16.7ML/HR INFUSING VIA THE WHITE PORT OF THE RIJ TLC. PT IS ON LEVOPHED AT 19MCG/MIN OR 71.3ML/HR INFUSING ALONG WITH THE PROPOFOL VIA THE BLUE PORT OF THE TLC. CVP IS 10 AT THIS TIME. ABD IS SOFT WITH ABSENT BOWEL SOUNDS. OGT TO LWS WITH SMALL AMOUNTS OF BROWN DRAINAGE. SOMMERS IN PLACE DRAINING CLEAR YELLOW URINE. REMAINS NPO.
--- NOTE | 2017-01-13 08:19 | RADIOLOGY REPORT ---
EXAMINATION: XR PORTABLE CHEST CLINICAL INFORMATION: Confirm ET tube position. COMPARISON: Prior chest 01/12/2017 6:[address] 01/10/2017. TECHNIQUE: Portable AP view of the chest was obtained. FINDINGS: Lines and Tubes: Endotracheal tube noted with the tip 4 cm above the kristy, unchanged. NG tube remains in place with the tip outside of the field of view of the examination but below the diaphragm. Central venous catheter tip in the region of the SVC, unchanged. Single lead pacer noted with the lead intact with the tip in the region of the right ventricle. Calcification of the dorsal aorta, unchanged. Cardiac silhouette within the limits of normal. Sternotomy wires noted. Pulmonary vasculature normal. Minimal hazy opacities through both lungs likely reflective of the posterior effusion and/or consolidation noted on the prior CT examination. Bone and Soft Tissues: Unremarkable. IMPRESSION: Endotracheal tube 4 cm above kristy. Hazy opacities of the lungs bilaterally, unchanged, compatible with previously noted posterior effusions and consolidation.
--- NOTE | 2017-01-13 09:20 | PN- CRCU ---
Subjective HPI/Critical Care Issues: Overnight events noted. The patient remains unresponsive, on Propofol and mechanical ventilation. The Propofol could not be turned down due to seizures. He remains on Depacon and Keppra. He continues to require Levophed for BP support. His oxygen requirement has increased, noting that he is now on 50%. His urine output continues to be above 30 ml per hour. 2/2 sets of BCs are positive. He received Vanco yesterday. He remains afebrile. Objective Current Medications: Current Medications Sig/Marcos Start time Last Medication Dose Route Stop Time Status Admin Acetaminophen 1,000 MG Q6P PRN 01/10 1815 AC IV Amiodarone HCl/ 360 MG Q12H 01/10 1630 AC 01/13 Dextrose IV 0418 N/A 1 UNIT Ampicillin Sodium/ 3,000 MG Q6 01/10 1807 AC 01/13 Sulbactam Sodium IV 0545 Sodium Chloride 100 ML Dextrose/Sodium 1,000 ML Q13H 01/11 2245 AC 01/13 Chloride IV 0417 Heparin Sodium 5,000 UNIT Q8 01/12 0840 AC 01/13 (Porcine) SC 0546 Insulin Human Regular 0 Q6 01/10 1816 AC 01/13 SC 0557 Levetiracetam 1,000 MG Q6 01/12 1800 AC 01/13 Sodium Chloride 100 ML IV 0546 Levetiracetam 1,000 MG BID 01/11 1000 DC 01/12 Sodium Chloride 100 ML IV 1029 Lorazepam 50 MG Q16H 01/10 2200 DC 01/11 Dextrose/Water 500 ML IV 1532 Magnesium Sulfate 1 GM Q2H 01/12 1315 DC 01/12 Dextrose/Water 100 ML IV 01/12 1714 1541 Morphine Sulfate 2 MG Q4P PRN 01/10 1815 AC IV Norepinephrine 4 MG Q3 01/12 1200 AC 01/13 Sodium Chloride 250 ML IV 0548 Norepinephrine 4 MG .STK-MED ONE 01/12 1151 DC IV 01/12 1152 Norepinephrine 4 MG Q6 01/11 2359 DC 01/12 Sodium Chloride 250 ML IV 0411 Pantoprazole Sodium 40 MG DAILY 01/10 1810 AC 01/12 IV 1028 Potassium Chloride 20 MEQ Q1H 01/13 0245 DC 01/13 IV 01/13 0346 0500 Potassium Chloride 20 MEQ Q1H 01/12 1315 DC 01/12 IV 01/12 1416 1541 Propofol 1,000 MG Q8H 01/10 2200 AC 01/13 N/A 100 ML IV 0548 Valproate Sodium 500 MG Q8 01/12 220 AC 01/13 Sodium Chloride 100 ML IV 0547 Valproate Sodium 1,000 MG ONCE ONE 01/12 1545 DC 01/12 Sodium Chloride 100 ML IV 01/12 1650 1659 Valproate Sodium 500 MG Q8 01/11 2200 DC 01/12 Sodium Chloride 100 ML IV 1304 Vancomycin HCl 1,000 MG ONCE ONE 01/12 0800 DC 01/12 Dextrose/Water 250 ML IV 01/12 0859 1025 Vital Signs & I&O Last 24 Hrs of Vitals and I&O: Vital Signs Date Time Temp Pulse Resp B/P Pulse O2 O2 Flow FiO2 Ox Delivery Rate 01/13 0750 25.8 01/13 0546 50 01/13 0400 96 Ventilator 40% 01/13 0302 50 01/13 0030 50 01/13 0000 97 Ventilator 40% 01/13 0000 99.2 74 25 120/58 97 Ventilator 40% 01/12 2225 50 01/12 2000 96 Ventilator 40% 01/12 1910 40 01/12 1615 40 03 1600 97.4 70 18 100/40 95 Ventilator 40% 01/12 1600 95 Ventilator 40% 01/12 1541 69 103/44 01/12 1424 40 01/12 1200 71 81/42 01/12 1200 95 Ventilator 40% 01/12 1151 40 Intake & Output 01/13 1600 01/13 0800 01/13 0000 Intake Total 1593.6 1800 Output Total 300 250 Balance 1293.6 1550 Intake, IV 1593.6 1800 Intake, Oral 0 0 Number 0 Bowel Movements Output, 0 Gastric Drainage Output, Stool 0 Output, Urine 300 250 Physical Exam General Appearance intubated, sedated Skin cool to touch, dry HEENT Atraumatic, pupils 2 mm sluggish to react Neck supple Cardiovascular regular rate, S1 and S2 heard Lungs bilateral anterior rhonchi heard, the lungs expand symmetrically and the trachea is midline Abdomen soft, absent bowel sound, nontender Extremities no edema Results Last 24 Hrs of Lab Results: Laboratory Tests 01/13/17 0445: Anion Gap 11, Estimated GFR > 60, Glucose 117 H, Calcium 7.3 L, Phosphorus 2.6 , Magnesium 2.2, Total Bilirubin 0.5, AST 49, ALT 96 H, Albumin 2.1 L, CBC w Diff MAN DIFF ORDERED, RBC 2.85 L, MCV 87.8, MCH 30.1, RDW 15.2 H, MPV 10.4, Gran % 87.7 H, Lymphocytes % 6.3 L, Monocytes % 6.0, Eosinophils % 0, Basophils % 0 L, Absolute Granulocytes 14.0 H, Segmented Neutrophils 82 H, Band Neutrophils 9 H, Absolute Lymphocytes 1.0 L, Lymphocytes 8 L, Monocytes 1 L, Absolute Monocytes 1.0 H, Absolute Eosinophils 0, Absolute Basophils 0, Platelet Estimate DECREASED, Poikilocytosis 1+, Anisocytosis 1+, Ovalocytes , PUBS MCHC 34.3, Valproic Acid 76.1 01/13/17 0038: Anion Gap 10, Estimated GFR > 60, Glucose 95, Calcium 7.3 L, Phosphorus 2.6, Magnesium 2.1, Total Bilirubin 0.5, AST 54, ALT 98 H, Albumin 2.1 L 01/12/17 1200: Anion Gap 12, Estimated GFR > 60, Glucose 223 H, Lactic Acid 2.7 H, Calcium 7.3 L, Phosphorus 2.6, Magnesium 1.6, Total Bilirubin 0.5, AST 70 H, ALT 118 H, Albumin 2.1 L, PT 15.2 H, INR 1.45 H, APTT 30, Fibrinogen Activity 258, Fibrin Degrad Products > 40 ug/ml H, CBC w Diff MAN DIFF ORDERED, RBC 2.99 L, MCV 87.3, MCH 29.2, RDW 14.5, MPV 9.7, Gran % 91.9 H, Lymphocytes % 3.8 L, Monocytes % 4.2, Eosinophils % 0, Basophils % 0.1, Absolute Granulocytes 19.5 H , Segmented Neutrophils 87 H, Band Neutrophils 8 H, Absolute Lymphocytes 0.8 L, Lymphocytes 4 L, Monocytes 1 L, Absolute Monocytes 0.9 H, Absolute Eosinophils 0, Absolute Basophils 0, Platelet Estimate VERIFIED BY SMEAR, Polychromasia 1+, Poikilocytosis 2+, Ovalocytes 1+, Fernando Cells 2+, PUBS MCHC 33.4, Valproic Acid 56.5 01/12/17 0955: pH 7.33 L, pCO2 26 L, pO2 79 L, HCO3 13 L, ABG O2 Sat (Measured) 94.0 L, Carboxyhemoglobin 0.2 L, O2 Concentration % .4, Respiration Rate 18, O2 Delivery Method VENT, Vent Mode AC, Expiratory Pressure 5, Tidal Volume 550, Phlebotomy Draw Site RIGHT RADIAL Diagnostic Data CXR Findings: Endotracheal tube 4 cm above kristy. Hazy opacities of the lungs bilaterally, unchanged, compatible with previously noted posterior effusions and consolidation. Impression/Plan Impression/Plan Impression/Plan: Impression: 1. Choking episode, leading to aspiration followed by cardiopulmonary arrest, with persistent hypotension requiring ongoing pressor therapy. 2. Probable anoxic brain injury, with seizures and posturing. 3. BCs positive for gram-positive cocci in clusters, likely contaminant versus respiratory source. 4. Electrolyte abnormalities, hypernatremia. 5. Positive troponin, likely secondary to demand ischemia in the setting of cardiac arrest. 6. Ventricular tachycardia, on amiodarone. 7. Respiratory failure secondary to aspiration pneumonia with an increase in oxygen requirement. 8. Malnutrition. Recommendations: * Give vancomycin 1 g IV 1 again today. * Will follow up cultures and determine if the patient needs to be switched to vancomycin tomorrow. Continue IV Unasyn for now. * Continue IV Keppra and Depakote. * Attempt to wean Proplfol down to off if able. Continue to monitor for seizures. * VENT: Increase respiratory rate to 20 breaths per minute. * Continue IVFs. * Attempt to wean Levophed down, maintain an MAP greater than 65 mmHg. * Continue amiodarone for now. * Continue DVT/GI prophylaxis. Add SQ heparin. * The patient is critically ill and has potential for poor outcome. I have discussed this with the patient's family in detail. They now request the patient to be DNR. * Appreciate all consultants input.
--- NOTE | 2017-01-13 09:35 | PN- Cardiology ---
Subjective Subjective: The patient remains comatose. He is still having some seizures. Propofol is unable to be tapered off because of the seizure activity. He remains on levophed and amiodarone. Objective Vital Signs and I&Os Vital Signs Date Time Temp Pulse Resp B/P Pulse O2 O2 Flow FiO2 Ox Delivery Rate 01/13 905 97.2 70 18 97/48 03/ 0750 25.8 03/ 0546 50 03/ 0400 96 Ventilator 40% 03/ 0302 50 03/ 0030 50 03/ 0000 97 Ventilator 40% 03/ 0000 99.2 74 25 120/58 97 Ventilator 40% 01/12 2225 50 03/ 2000 96 Ventilator 40% 01/12 1910 40 03/ 1615 40 03/ 1600 97.4 70 18 100/40 95 Ventilator 40% 01/12 1600 95 Ventilator 40% 01/12 1541 69 103/44 03/ 1424 40 03/ 1200 71 81/42 03/ 1200 95 Ventilator 40% 01/12 1151 40 Intake & Output 01/13 1600 01/13 0800 / 0000 / 1600 01/12 0800 03/ 0000 Intake Total 1593.6 1800 1714 1480 2742 Output Total 300 250 694 034 5253 Balance 1293.6 1550 4162 782 1255 Intake, IV 1593.6 1800 1714 1480 2692 Intake, Oral 0 0 Intake, Other 50 Intake, Tube 0 Feeding Intake, Tube 0 Irrigant Number 0 0 0 0 Bowel Movements Output, 0 25 50 Gastric Drainage Output, Stool 0 Output, Urine 300 250 053 780 0906 Patient 161 lb 160 lb Weight Physical Exam: He is unresponsive on the respirator Lungs are aerating bilaterally Heart is regular rhythm no murmurs Neurologic status is unresponsive Assessment/Plan Assessment/Plan The patient is unresponsive after cardiac arrest. He has underlying heart disease. He is maintaining a blood pressure on levophed. Neurologic status is poor but final determination is pending. He has some positive cardiac enzymes which is likely demand ischemia in the setting of underlying coronary disease. His heart rate has been increased by increasing the pacing rate on his defibrillator to 70. His echocardiogram shows reduced left ventricular systolic function. There is no evidence of congestive heart failure. Yesterday he had some spontaneous sinus rhythm overriding the pacemaker rate of 75. There have been no clinically significant arrhythmias noted. Amiodarone can be discontinued at this time. Continue telemetry? Not applicable
--- NOTE | 2017-01-13 09:54 | PN- Resident CRCU ---
Subjective HPI/CRCU Issues: Patient is in the ICU, postcardiac arrest, post cardiopulmonary resuscitation, for therapeutic hypothermia and life-support. No issues overnight. 24 Hour Events: He was taken off therapeutic hypothermia protocol yesterday, process completed at noon yesterday. Objective Vital Signs & I&O Last 8 Hrs of Vitals and I&O: Vital Signs Date Time Temp Pulse Resp B/P Pulse O2 O2 Flow FiO2 Ox Delivery Rate 03/ 1630 50 03/02 1359 50 03/ 1303 96.6 70 20 132/56 03/02 1200 97 Ventilator 50% 03/02 1050 50 03/02 0951 97.6 70 18 111/52 03/02 0905 97.2 70 18 97/48 03/02 0800 93 Ventilator 50% 03/ 0800 97.2 70 18 124/54 93 Ventilator 50% 03/ 0750 25.8 03/02 0546 50 03/02 0400 96 Ventilator 40% 03/ 0302 50 03/02 0030 50 03/02 0000 97 Ventilator 40% 03/02 0000 99.2 74 25 120/58 97 Ventilator 40% 03/ 2225 50 03/ 2000 96 Ventilator 40% 03/ 1910 40 Intake & Output 03/02 1600 03/02 0800 03/02 0000 Intake Total 1878 1593.6 1800 Output Total 475 300 250 Balance 1403 1293.6 1550 Intake, IV 1848 1593.6 1800 Intake, Oral 0 0 Intake, Other 30 Number 0 Bowel Movements Output, 30 0 Gastric Drainage Output, Stool 0 Output, Urine 445 300 250 Exam General Appearance: well developed/nourished, intubated Other Physical Findings: Head: atraumatic, normal appearance Eyes: Bilateral: other (b/l pin point pupil, no reflex), no corneal reflex Ears, Nose, Throat: intubated, so cannot examine throat Neck: normal inspection Respiratory: intubated, clear lung sounds b/l, no wheezes Cardiovascular: regular rate/rhythm, rate 70 Peripheral Pulses: 3+ radial (R), 3+ radial (L) Gastrointestinal: normal bowel sounds Neurologic/Psych: absent corneal reflex b/l, tone of limbs normal b/l, not increased, no decerebrate posturing, twitching has stopped, absent doll's eye phenomenon, no corneal reflex b/l Skin: cold to touch, on hypothermia protocol Current Medications: Current Medications Sig/Marcos Start time Last Medication Dose Route Stop Time Status Admin Acetaminophen 1,000 MG Q6P PRN 01/10 1815 IV Amiodarone HCl/ 360 MG Q12H 01/10 1630 [place] 01/13 Dextrose IV 0951 N/A 1 UNIT Ampicillin Sodium/ 3,000 MG Q6 01/10 1807 01/13 Sulbactam Sodium IV 1223 Sodium Chloride 100 ML Dextrose/Sodium 1,000 ML Q13H 01/11 2245 01/13 Chloride IV 0417 Heparin Sodium 5,000 UNIT Q8 01/12 0840 01/13 (Porcine) SC 1423 Insulin Human Regular 0 Q6 01/10 1816 01/13 SC 1234 Levetiracetam 1,000 MG Q6 01/12 1800 AC 01/13 Sodium Chloride 100 ML IV 1223 Magnesium Sulfate 1 GM Q2H 01/12 1315 DC 01/12 Dextrose/Water 100 ML IV 01/12 1714 1541 Morphine Sulfate 2 MG Q4P PRN 01/10 1815 IV Norepinephrine 4 MG Q3 01/12 1200 AC 01/13 Sodium Chloride 250 ML IV 1303 Pantoprazole Sodium 40 MG DAILY 01/10 1810 AC 01/13 IV 0944 Potassium Chloride 20 MEQ Q1H 01/13 1115 DC 01/13 IV 01/13 1216 1326 Potassium Chloride 20 MEQ Q1H 01/13 0245 DC 01/13 IV 01/13 0346 0500 Propofol 1,000 MG Q8H 01/10 2200 AC 01/13 N/A 100 ML IV 0950 Valproate Sodium 500 MG Q8 01/12 2200 01/13 Sodium Chloride 100 ML IV 1424 Valproate Sodium 500 MG Q8 01/11 2200 DC 01/12 Sodium Chloride 100 ML IV 1304 Vancomycin HCl 1,000 MG ONCE ONE 01/13 0930 [place] 01/13 Dextrose/Water 250 ML IV 01/13 1029 1108 Impression/Plan Impression/Problem List Impression: 81-year-old male with past medical history of diabetes mellitus, hypertension, coronary artery disease status post open heart surgery more than 20 years back, h/o VFib s/p defibrillator, hyperlipidemia, BPH was brought in by ambulance with continuing current pulmonary resuscitation. Continued cardiopulmonary resuscitation in the emergency department. Received epinephrine. Central line was put in the ED and was getting levophed beside other medication. CT head did not show any bleed or new changes. This morning he is off hypothermia protocol. neurology -anoxic brain injury -corneal reflex, doll's eye phenomenon absent, poor deep tendon reflex, tone normal b/l -myoclonic seizure is absent; keppra, depacon, and propofol on board -We will try to keep propofol at the minimum doses only to prevent his seizure activity. lacosamide if seizure not under control, after weaning off propofol -appreciate neurology consult cardiology -Rate for pacemaker firing has been increased to 70 -Patient has been on Levophed at near maximum dose to maintain his blood pressure just around 97/48. -Plan to add another pressure medication if Levophed alone is not able to sustain blood pressure -Discontinued Amiodarone per Cardio pulmonology -is intubated, RR increased to 20 -Does not have any respiratory effort of his own hem -has DIC with fibrinogen 258 today -checking only daily now -blood transfusion and cryo if bleeding -watch for infection -cryo ppt if fibrinogen<100 -appreciate heme consult ID -on Unasyn as proplylaxis -Gave 1 dose of IV vancomycin 1 g today, day 2 DVT ppx: ALPS Diet: NPO Family () updated about his condition by Dr Mcdermott in presence of Dr Banuelos and me. They understand that the patient's condition is critical and his guarded prognosis. Family requested us to change the code to do not resuscitate. Code status: Full code Problem List: 1. Cardiopulmonary arrest Pain Ratin Tomorrow's Labs & Rationales: icu lab bundle, cbc, dic panel, cxr Plan DVT/Prophylaxis: mechanical ever came to that. But again she did not change the CODE STATUS of the patient. My resident Dr. Mo also discussed with family and updated the condition. Attending Dr. Mcdermott updated. Code status: Full code Plan DVT/Prophylaxis: mechanical
--- NOTE | 2017-01-13 12:30 | NUR ---
PER MD ORDER THE AMIODAREONE GTT WAS STOPPED AT 1215. PT WAS INITIALLY ON LEVOPHED AT 19MCG/MIN. TITRATED BY 1MCG/HR TOT HE CURRENT RATE OF 15MCG/MIN. MAP IS CURRENTLY GREATER THAN OR EQUAL TO 65.
--- NOTE | 2017-01-13 14:03 | PN- Neurology ---
Subjective Subjective: comatose Review of Systems: on respirator Objective Vital Signs and I&Os Vital Signs Date Time Temp Pulse Resp B/P Pulse O2 O2 Flow FiO2 Ox Delivery Rate 03 1303 96.6 70 20 132/56 03/02 1200 97 Ventilator 50% 03/ 1050 50 03/02 0951 97.6 70 18 111/52 03/02 0905 97.2 70 18 97/48 03/02 0800 93 Ventilator 50% 03/ 0800 97.2 70 18 124/54 93 Ventilator 50% 03/ 0750 25.8 03/02 0546 50 03/02 0400 96 Ventilator 40% 03/ 0302 50 03/02 0030 50 03/ 0000 97 Ventilator 40% 03/ 0000 99.2 74 25 120/58 97 Ventilator 40% 03/ 2225 50 03/ 2000 96 Ventilator 40% 03/ 1910 40 03/ 1615 40 03/ 1600 97.4 70 18 100/40 95 Ventilator 40% 03 1600 95 Ventilator 40% 03/ 1541 69 103/44 03/ 1424 40 Intake & Output / 1600 03/02 0800 03/02 0000 03/01 1600 03/ 0800 03/01 0000 Intake Total 1593.6 1800 1714 1480 2742 Output Total 300 250 044 052 6471 Balance 1293.6 1550 3698 701 7123 Intake, IV 1593.6 1800 1714 1480 2692 Intake, Oral 0 0 Intake, Other 50 Intake, Tube 0 Feeding Intake, Tube 0 Irrigant Number 0 0 0 0 Bowel Movements Output, 0 25 50 Gastric Drainage Output, Stool 0 Output, Urine 300 250 284 294 6700 Patient 161 lb 160 lb Weight rare myoclonic jerks pn propofol, dose lower pupils zmall, unable to assess if any light readtion 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 no cornal response no response to noxious stimuli not override respirator now DNR Current Medications: Current Medications Sig/Marcos Start time Last Medication Dose Route Stop Time Status Admin Acetaminophen 1,000 MG Q6P PRN 01/10 1815 AC IV Amiodarone HCl/ 360 MG Q12H 01/10 1630 DC 01/13 Dextrose IV 0951 N/A 1 UNIT Ampicillin Sodium/ 3,000 MG Q6 01/10 1807 AC 01/13 Sulbactam Sodium IV 1223 Sodium Chloride 100 ML Dextrose/Sodium 1,000 ML Q13H 01/11 2245 01/13 Chloride IV 0417 Heparin Sodium 5,000 UNIT Q8 01/12 0840 01/13 (Porcine) SC 0546 Insulin Human Regular 0 Q6 01/10 1816 01/13 SC 1234 Levetiracetam 1,000 MG Q6 01/12 1800 AC 01/13 Sodium Chloride 100 ML IV 1223 Levetiracetam 1,000 MG BID 01/11 1000 DC 01/12 Sodium Chloride 100 ML IV 1029 Magnesium Sulfate 1 GM Q2H 01/12 1315 DC 01/12 Dextrose/Water 100 ML IV 01/12 1714 1541 Morphine Sulfate 2 MG Q4P PRN 01/10 181 IV Norepinephrine 4 MG Q3 01/12 1200 01/13 Sodium Chloride 250 ML IV 1303 Pantoprazole Sodium 40 MG DAILY 01/10 1810 01/13 IV 0944 Potassium Chloride 20 MEQ Q1H 01/13 1115 DC 01/13 IV 01/13 1216 1326 Potassium Chloride 20 MEQ Q1H 01/13 0245 DC 01/13 IV 01/13 0346 0500 Potassium Chloride 20 MEQ Q1H 01/12 1315 DC 01/12 IV 01/12 1416 1541 Propofol 1,000 MG Q8H 01/10 2200 01/13 N/A 100 ML IV 0950 Valproate Sodium 500 MG Q8 01/12 2200 01/13 Sodium Chloride 100 ML IV 0547 Valproate Sodium 1,000 MG ONCE ONE 01/12 1545 DC 01/12 Sodium Chloride 100 ML IV 01/12 1650 1659 Valproate Sodium 500 MG Q8 01/11 2200 WV 01/12 Sodium Chloride 100 ML IV 1304 Vancomycin HCl 1,000 MG ONCE ONE 01/13 0930 WV 01/13 Dextrose/Water 250 ML IV 01/13 1029 1108 Results Last 24 Hours of Lab Results: Laboratory Tests 01/13 01/13 0920 0445 Blood Gas pH (7.35 - 7.45 PH) 7.34 L pCO2 (35 - 45 TORR) 28.3 L pO2 (80 - 100 TORR) 86 HCO3 (21 - 28 MEQ/L) 15 L ABG O2 Sat (Measured) (>96.0 %) 96.0 Carboxyhemoglobin (1.5 - 5.0 %) 0.3 L O2 Concentration % 50 Respiration Rate (BPM) 18 O2 Delivery Method VENT Vent Mode AC Expiratory Pressure (CMH2O/P) 5 Tidal Volume (CC) 550 Chemistry Sodium (137 - 145 mmol/L) 149 H Potassium (3.5 - 5.1 mmol/L) 3.6 Chloride (98 - 107 mmol/L) 121 H Carbon Dioxide (22 - 30 mmol/L) 17 L Anion Gap (5 - 16) 11 BUN (9 - 20 mg/dL) 14 Creatinine (0.7 - 1.2 mg/dL) 0.9 Estimated GFR (>60 ml/min) > 60 Glucose (65 - 99 mg/dL) 117 H Calcium (8.4 - 10.2 mg/dL) 7.3 L Phosphorus (2.5 - 4.5 mg/dL) 2.6 Magnesium (1.6 - 2.3 mg/dL) 2.2 Total Bilirubin (0.2 - 1.3 mg/dL) 0.5 AST (17 - 59 U/L) 49 ALT (21 - 72 U/L) 96 H Albumin (3.5 - 5.0 g/dL) 2.1 L Hematology CBC w Diff MAN DIFF ORDERED WBC (4.8 - 10.8 /CUMM) 15.9 H RBC (4.70 - 6.10 /CUMM) 2.85 L Hgb (14.0 - 18.0 G/DL) 8.6 L Hct (42 - 52 %) 25.0 L MCV (80.0 - 94.0 FL) 87.8 MCH (27.0 - 31.0 PG) 30.1 RDW (11.5 - 14.5 %) 15.2 H Plt Count (130 - 400 /CUMM) 136 MPV (7.4 - 10.4 FL) 10.4 Gran % (42.2 - 75.2 %) 87.7 H Lymphocytes % (20.5 - 51.1 %) 6.3 L Monocytes % (1.7 - 9.3 %) 6.0 Eosinophils % (0 - 5 %) 0 Basophils % (0.0 - 2.0 %) 0 L Absolute Granulocytes (1.4 - 6.5 /CUMM) 14.0 H Segmented Neutrophils (42.2 - 75.2 %) 82 H Band Neutrophils (0.0 - 5.0 %) 9 H Absolute Lymphocytes (1.2 - 3.4 /CUMM) 1.0 L Lymphocytes (20.5 - 51.1 %) 8 L Monocytes (1.7 - 9.3 %) 1 L Absolute Monocytes (0.10 - 0.60 /CUMM) 1.0 H Absolute Eosinophils (0.0 - 0.7 /CUMM) 0 Absolute Basophils (0.0 - 0.2 /CUMM) 0 Platelet Estimate (ADEQUATE) DECREASED Poikilocytosis 1+ Anisocytosis 1+ Ovalocytes PUBS MCHC (33.0 - 37.0 G/DL) 34.3 Miscellaneous Phlebotomy Draw Site RIGHT RADIAL Toxicology Valproic Acid (50 - 120 ug/mL) 76.1 03/ 0038 Chemistry Sodium (137 - 145 mmol/L) 148 H Potassium (3.5 - 5.1 mmol/L) 3.4 L Chloride (98 - 107 mmol/L) 122 H Carbon Dioxide (22 - 30 mmol/L) 17 L Anion Gap (5 - 16) 10 BUN (9 - 20 mg/dL) 15 Creatinine (0.7 - 1.2 mg/dL) 1.0 Estimated GFR (>60 ml/min) > 60 Glucose (65 - 99 mg/dL) 95 Calcium (8.4 - 10.2 mg/dL) 7.3 L Phosphorus (2.5 - 4.5 mg/dL) 2.6 Magnesium (1.6 - 2.3 mg/dL) 2.1 Total Bilirubin (0.2 - 1.3 mg/dL) 0.5 AST (17 - 59 U/L) 54 ALT (21 - 72 U/L) 98 H Albumin (3.5 - 5.0 g/dL) 2.1 L Assessment/Plan Assessment: post anoxic encephalopathy grim prognosis Plan: wean off propofol lacosamide 400mg load follow with 200mg q 12 HR if seizures return
[2017-01-13 16:00] VITALS: BP 114/52
--- NOTE | 2017-01-13 17:30 | NUR ---
CONTINUED TO TITRATED DOWN THE LEVOPHED BY 1MCG/HR TO THE CURRENTL RATE OF 10MCG/MIN. IN ADDITION, BEGAN TITRATING THE PROPOFOL GTT BY 5MCG/HR, PER DR TOURE , STARTING AT 1450 TO THE CURRENT RATEOF 15MCG/KG/MIN. NO INCREASE IN LEVEL OF CONSCIOUS NOTED. GCS REMAINS A 3. PT REC'D KCL 20MEQ IV X2 FOR THE K+ OF 3.6 FINISHING AT 1400. PT NOW ONLY HAS OCC PVC'S.
[2017-01-13 21:03] LABS: ABSOLUTE BASOPHIL COUNT 0 /CUMM (0.0-0.2); ABSOLUTE EOSINOPHIL COUNT 0 /CUMM (0.0-0.7); ABSOLUTE GRANULOCYTE CT 9.3 /CUMM (1.4-6.5); ABSOLUTE LYMPH COUNT 0.6 /CUMM (1.2-3.4); ABSOLUTE MONOCYTE COUNT 0.4 /CUMM (0.10-0.60); BASOPHIL % 0.1 % (0.0-2.0); EOSINOPHIL % 0.1 % (0-5); MEAN CORPUSCULAR HGB 30.1 PG (27.0-31.0); MEAN CORPUSCULAR HGB CONC 34.5 G/DL (33.0-37.0); MEAN CORPUSCULAR VOLUME 87.3 FL (80.0-94.0); MEAN PLATELET VOLUME 10.5 FL (7.4-10.4); PLATELET COUNT 107 /CUMM (130-400); RBC DISTRIBUTION WIDTH 15.6 % (11.5-14.5); RED BLOOD CELL CT 2.75 /CUMM (4.70-6.10); WHITE BLOOD CELL COUNT 10.4 /CUMM (4.8-10.8)
[2017-01-14] VITALS: BP 108/52
[2017-01-14 06:07] LABS: ABSOLUTE BASOPHIL COUNT 0 /CUMM (0.0-0.2); ABSOLUTE EOSINOPHIL COUNT 0 /CUMM (0.0-0.7); ABSOLUTE GRANULOCYTE CT 8.3 /CUMM (1.4-6.5); ABSOLUTE LYMPH COUNT 0.6 /CUMM (1.2-3.4); ABSOLUTE MONOCYTE COUNT 0.3 /CUMM (0.10-0.60); BASOPHIL % 0.1 % (0.0-2.0); EOSINOPHIL % 0 % (0-5); GRANULOCYTE % 90.4 % (42.2-75.2); HEMATOCRIT 25.5 % (42-52); MEAN CORPUSCULAR HGB 29.3 PG (27.0-31.0); MEAN CORPUSCULAR HGB CONC 33.2 G/DL (33.0-37.0); MEAN CORPUSCULAR VOLUME 88.1 FL (80.0-94.0); MEAN PLATELET VOLUME 9.6 FL (7.4-10.4); RBC DISTRIBUTION WIDTH 15.3 % (11.5-14.5); WHITE BLOOD CELL COUNT 9.2 /CUMM (4.8-10.8)
[2017-01-14 07:03] LABS: PLATELET COUNT 98 /CUMM (130-400)
[2017-01-14 07:14] LABS: PT 12.2 SEC (9.4-12.5); PTT 28 SEC (25-37)
--- NOTE | 2017-01-14 07:30 | PN- Resident CRCU ---
Subjective HPI/CRCU Issues: Patient is in the ICU, postcardiac arrest, post cardiopulmonary resuscitation, for therapeutic hypothermia and life-support. No issues overnight. Propofol was weaned off. But patient is still having some facial muscles twitching ?myoclonus. Objective Vital Signs & I&O Last 8 Hrs of Vitals and I&O: Vital Signs Date Time Temp Pulse Resp B/P Pulse O2 O2 Flow FiO2 Ox Delivery Rate 01/14 1055 50 01/14 0829 50 01/14 0546 50 01/14 0400 95 Ventilator 50% 01/14 0314 50 / 0020 50 03/ 0000 98 Ventilator 50% / 0000 97.7 67 20 108/52 98 Ventilator 50% 03/ 2210 50 / 2000 50 Ventilator 50% / 1920 50 03/ 1813 97.1 70 20 110/57 03/02 1630 50 03/ 1600 98 Ventilator 50% / 1600 97.1 70 20 114/52 98 Ventilator 50% / 1359 50 03/02 1303 96.6 70 20 132/56 Intake & Output 01/14 1600 / 0800 / 0000 Intake Total 1345 1295.2 Output Total 350 490 Balance 995 805.2 Intake, IV 1345 1255.2 Intake, Oral 0 0 Intake, Other 40 Number 0 Bowel Movements Output, 40 Gastric Drainage Output, Urine 350 450 Exam General Appearance: well developed/nourished, intubated Other Physical Findings: Head: atraumatic, normal appearance Eyes: Bilateral: other (b/l pupil bigger than yesterday with no reflex), no corneal reflex, conjunctival edema present b/l Ears, Nose, Throat: intubated, so cannot examine throat Neck: normal inspection Respiratory: intubated, clear lung sounds b/l, no wheezes Cardiovascular: regular rate/rhythm, rate 70 Peripheral Pulses: 3+ radial (R), 3+ radial (L) Gastrointestinal: normal bowel sounds Neurologic/Psych: absent corneal reflex b/l, tone of limbs normal b/l, not increased, no decerebrate posturing, twitching has stopped, absent doll's eye phenomenon, no corneal reflex b/l Skin: cold to touch, on hypothermia protocol Cannon Site: urethra IV Drips IV Drips: D5W 1/2 NS Current Medications: Current Medications Sig/Marcos Start time Last Medication Dose Route Stop Time Status Admin Acetaminophen 1,000 MG Q6P PRN 01/10 1815 AC IV Ampicillin Sodium/ 3,000 MG Q6 01/10 1807 AC 01/14 Sulbactam Sodium IV 1138 Sodium Chloride 100 ML Dextrose/Sodium 1,000 ML Q13H 01/11 2245 AC 01/13 Chloride IV 2147 Heparin Sodium 5,000 UNIT Q8 01/12 0840 DC 01/14 (Porcine) SC 0627 Insulin Human Regular 0 Q6 01/10 1816 AC 01/14 SC 1138 Lacosamide 200 MG BID 01/14 2200 CAN Sodium Chloride 100 ML IV 01/14 2359 Lacosamide 200 MG BID 01/14 2200 AC Sodium Chloride 100 ML IV Lacosamide 400 MG 1000 01/14 1000 DC 01/14 Sodium Chloride 100 ML IV 01/14 1059 0945 Levetiracetam 1,000 MG Q6 01/12 1800 AC 01/14 Sodium Chloride 100 ML IV 1138 Morphine Sulfate 2 MG Q4P PRN 01/10 1815 AC IV Non-Formulary 0 SEE ADMIN CRITERIA 01/14 0915 DC Medication ANY Norepinephrine 4 MG .STK-MED ONE 01/13 1257 DC IV 01/13 1258 Norepinephrine 4 MG Q3 01/12 1200 AC 01/13 Sodium Chloride 250 ML IV 2149 Pantoprazole Sodium 40 MG DAILY 01/10 1810 AC 01/14 IV 0920 Potassium Chloride 20 MEQ Q1H 01/14 0845 DC 01/14 IV 01/14 0946 1040 Potassium Phosphate 15 mMol ONE ONE 01/13 2200 DC 01/13 Sodium Chloride 250 ML IV 01/14 0203 2337 Propofol 1,000 MG Q8H 01/10 2200 AC 01/14 N/A 100 ML IV 0627 Valproate Sodium 500 MG Q8 01/12 2200 AC 01/14 Sodium Chloride 100 ML IV 0627 CXR Findings: IMPRESSION: Endotracheal tube terminates approximately 1.4 cm above the kristy. Worsening hypoinflation, basilar atelectasis and pleural effusions. DICTATED BY: WENDY RAMÍREZ MD DATE/TIME DICTATED:01/14/17600 KAIAKO KURA KAUPAPA MAORI:MAGNOLIA DATE/TIME TRANSCRIBED:01/14/17600 Impression/Plan Impression/Problem List Impression: 81-year-old male with past medical history of diabetes mellitus, hypertension, coronary artery disease status post open heart surgery more than 20 years back, h/o VFib s/p defibrillator, hyperlipidemia, BPH was brought in by ambulance with continuing current pulmonary resuscitation. Continued cardiopulmonary resuscitation in the emergency department. Received epinephrine. Central line was put in the ED and was getting levophed beside other medication. CT head did not show any bleed or new changes. This morning he is off hypothermia protocol. neurology -anoxic brain injury -corneal reflex, doll's eye phenomenon absent, poor deep tendon reflex, tone normal b/l -myoclonic seizure is absent; keppra, depacon, and lacosamide on board. Propofol yesterday. -appreciate neurology consult cardiology -Rate for pacemaker firing was been increased to 70 -Patient has been on Levophed to maintain his blood pressure -Plan to add another pressure medication if Levophed alone is not able to sustain blood pressure pulmonology -is intubated, RR increased to 20 -Does not have any respiratory effort of his own hem -has DIC with fibrinogen 258 today -checking only daily now -blood transfusion and cryo if bleeding -watch for infection -cryo ppt if fibrinogen<100 -appreciate heme consult ID -on Unasyn as proplylaxis DVT ppx: ALPS Diet: NPO Family (grand-daughter) updated about his condition by me over phone. Dr Mcdermott to talk with patient's regarding patient's situation. See event note. Code status: Full code Problem List: 1. Cardiopulmonary arrest Pain Ratin Tomorrow's Labs & Rationales: CBC, ICU lab bundle, CXR, DIC panel Plan DVT/Prophylaxis: mechanical Tomorrow's Labs & Rationales: CBC, ICU lab bundle, CXR, DIC panel Plan DVT/Prophylaxis: mechanical
[2017-01-14 08:00] VITALS: BP 124/56
--- NOTE | 2017-01-14 09:00 | NUR ---
AT 0830 REC'D THE PT ORALLY INTUBATED AND MECHANICALLY VENTILATED PER THE MD ORDER. THE PROPOFOL WAS TURNED OFF AT 0700 AND THE PT REMAINS UNRESPONSIVE. CONTINUOUS MYOCLONIC TWITCHES NOTED TO FACE. PUPILS REMAIN 2MM AND FIXED. NO SPONTANEOUS MOVEMENT OF EXTREMITIES NOTED. HANDS AND FEET REMAIN COLD AND THE PULSES REMAIN DIMINISHED. AT THIS TIME THE LEVOPHED GTT WAS DECREASED TO 5MCG/MIN OR 18.8ML/HR INFUSING VIA THE BLUE PORT OF THE RIJ TLC. WHITE PORT FLUSHED AND HAS BLOOD RETURN. THE CVP IS 7. PT IS PACED WITH OCC BREAKTHROUGH SINUS BEATS. PT IS ALSO HAVING FREQ PVC'S. K+ IS 3.7 TO RECEIVE KCL 20MEQ IV X1, EACH OVER ONE HOUR. LUDWIG BS ARE CLEAR WITH AN O2 SAT OF 95% ON AN FIO2 OF 50%. SUCTIONED VIA THE ETT FOR MODERATE THICK TONG SPUTUM. ORAL CARE PERFORMED AND ORALLY SUCTIONED FOR LG WHITE SECRETIONS. ABD IS SOFT, BOWEL SOUNDS REMAIN ABSENT. OGT TO LWS WITH NO DRAINAGE NOTED. SOMMERS IN PLACE DRAINING CLEAR YELLOW URINE.
--- NOTE | 2017-01-14 09:10 | PN- CRCU ---
Subjective HPI/Critical Care Issues: The patient remains on mechanical ventilation. Propofol was turned off earlier this morning noting the patient is having facial twitches without generalized seizure activity. He remains on low-dose Levophed with some improvement in his blood pressure. He is not making any purposeful movements. He continues to have good urine output. The patient remains afebrile. Objective Current Medications: Current Medications Sig/Marcos Start time Last Medication Dose Route Stop Time Status Admin Acetaminophen 1,000 MG Q6P PRN 01/10 1815 AC IV Amiodarone HCl/ 360 MG Q12H 01/10 1630 DC 01/13 Dextrose IV 0951 N/A 1 UNIT Ampicillin Sodium/ 3,000 MG Q6 01/10 1807 AC 01/14 Sulbactam Sodium IV 0627 Sodium Chloride 100 ML Dextrose/Sodium 1,000 ML Q13H 01/11 2245 AC 01/13 Chloride IV 2147 Heparin Sodium 5,000 UNIT Q8 01/12 0840 AC 01/14 (Porcine) SC 0627 Insulin Human Regular 0 Q6 01/10 1816 AC 01/14 SC 0627 Levetiracetam 1,000 MG Q6 01/12 1800 AC 01/14 Sodium Chloride 100 ML IV 0627 Morphine Sulfate 2 MG Q4P PRN 01/10 1815 AC IV Norepinephrine 4 MG .STK-MED ONE 01/13 1257 DC IV 01/13 1258 Norepinephrine 4 MG Q3 01/12 1200 AC 01/13 Sodium Chloride 250 ML IV 2149 Pantoprazole Sodium 40 MG DAILY 01/10 1810 AC 01/13 IV 0944 Potassium Chloride 20 MEQ Q1H 01/14 0845 AC IV 01/14 0946 Potassium Chloride 20 MEQ Q1H 01/13 1115 DC 03 IV 01/13 1216 1326 Potassium Phosphate 15 mMol ONE ONE 01/13 2200 DC 01/13 Sodium Chloride 250 ML IV 01/14 0203 2337 Propofol 1,000 MG Q8H 01/10 2200 AC 01/14 N/A 100 ML IV 0627 Valproate Sodium 500 MG Q8 01/12 2200 AC 01/14 Sodium Chloride 100 ML IV 0627 Vancomycin HCl 1,000 MG ONCE ONE 01/13 0930 DC 01/13 Dextrose/Water 250 ML IV 01/13 1029 1108 Vital Signs & I&O Last 24 Hrs of Vitals and I&O: Vital Signs Date Time Temp Pulse Resp B/P Pulse O2 O2 Flow FiO2 Ox Delivery Rate 01/14 0829 50 / 0546 50 01/14 0400 95 Ventilator 50% 01/14 0314 50 / 0020 50 03/ 0000 98 Ventilator 50% 03/ 0000 97.7 67 20 108/52 98 Ventilator 50% 03/ 2210 50 03/ 2000 50 Ventilator 50% / 1920 50 03/02 1813 97.1 70 20 110/57 03/02 1630 50 03/02 1600 98 Ventilator 50% 03/ 1600 97.1 70 20 114/52 98 Ventilator 50% 03/ 1359 50 03/02 1303 96.6 70 20 132/56 03/02 1200 97 Ventilator 50% / 1050 50 03/02 0951 97.6 70 18 111/52 03/02 0905 97.2 70 18 97/48 Intake & Output 01/14 1600 01/14 0800 03/ 0000 Intake Total 1345 1295.2 Output Total 350 490 Balance 995 805.2 Intake, IV 1345 1255.2 Intake, Oral 0 0 Intake, Other 40 Number 0 Bowel Movements Output, 40 Gastric Drainage Output, Urine 350 450 Physical Exam General Appearance intubated, facial twitching noted without generalized seizure activity Skin warm, dry HEENT Atraumatic, pupils 2 mm sluggish to react Neck supple Cardiovascular regular rate, S1 and S2 heard Lungs bilateral anterior rhonchi heard, the lungs expand symmetrically and the trachea is midline Abdomen soft, absent bowel sound, nontender Extremities no edema Results Last 24 Hrs of Lab Results: Laboratory Tests 01/14/17 0500: Anion Gap 7, Estimated GFR > 60, Glucose 92, Calcium 7.5 L, Phosphorus 2.5, Magnesium 1.9, Total Bilirubin 0.5, AST 36, ALT 68, Albumin 1.9 L, PT 12.2, INR 1.16, APTT 28, Fibrinogen Activity 407 H, Fibrin Degrad Products >10 but < 40 ug/ml H, CBC w Diff NO MAN DIFF REQ, RBC 2.90 L, MCV 88.1, MCH 29.3, RDW 15.3 H, MPV 9.6, Gran % 90.4 H, Lymphocytes % 6.0 L, Monocytes % 3.5, Eosinophils % 0, Basophils % 0.1, Absolute Granulocytes 8.3 H, Absolute Lymphocytes 0.6 L, Absolute Monocytes 0.3, Absolute Eosinophils 0, Absolute Basophils 0, PUBS MCHC 33.2 01/13/17 2000: Anion Gap 7, Estimated GFR > 60, Glucose 114 H, Calcium 7.4 L, Phosphorus 1.6 L, Magnesium 2.0, Total Bilirubin 0.5, AST 39, ALT 77 H, Albumin 1.9 L, CBC w Diff NO MAN DIFF REQ, RBC 2.75 L, MCV 87.3, MCH 30.1, RDW 15.6 H, MPV 10.5 H, Gran % 90.0 H, Lymphocytes % 5.7 L, Monocytes % 4.1, Eosinophils % 0.1, Basophils % 0.1, Absolute Granulocytes 9.3 H, Absolute Lymphocytes 0.6 L, Absolute Monocytes 0.4, Absolute Eosinophils 0, Absolute Basophils 0, PUBS MCHC 34.5 01/13/17 0920: pH 7.34 L, pCO2 28.3 L, pO2 86, HCO3 15 L, ABG O2 Sat (Measured) 96.0, Carboxyhemoglobin 0.3 L, O2 Concentration % 50, Respiration Rate 18, O2 Delivery Method VENT, Vent Mode AC, Expiratory Pressure 5, Tidal Volume 550, Phlebotomy Draw Site RIGHT RADIAL Last 24 Hrs of Micro Results: Blood cultures positive for coag-negative staph x 2. Repeat blood cultures are negative so far. Diagnostic Data CXR Findings: Pending. Impression/Plan Impression/Plan Impression/Plan: Impression: 1. Choking episode, leading to aspiration followed by cardiopulmonary arrest, with persistent hypotension requiring ongoing pressor therapy. 2. 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 The patient has ongoing twitching. 3. BCs positive for coag negative staph, contaminant versus respiratory source. 4. Electrolyte abnormalities, hypernatremia. 5. Positive troponin, likely secondary to demand ischemia in the setting of cardiac arrest. 6. Ventricular tachycardia, on amiodarone. 7. Respiratory failure secondary to aspiration pneumonia with an increase in oxygen requirement. 8. Malnutrition. Recommendations: * Monitor off Propofol. * Continue IV Unasyn for now. * Continue IV Keppra and Depakote. * Attempt to wean Proplfol down to off if able. Continue to monitor for seizures. * Free water flushes 200 ml q 4 hours. * Give free water bolus - 500 ml x 1 today. * Continue IVFs D5 1/2 NS but decrease to 50 ml/hr. * Attempt to wean Levophed down, maintain an MAP greater than 65 mmHg. * Continue amiodarone. * Continue DVT/GI prophylaxis. Add SQ heparin. * The patient is critically ill and has potential for poor outcome. I have discussed this with the patient's family in detail. The patient is DNR. * Follow up neurology input - start lacosamide for facial twitching? * Appreciate all consultants input.
--- NOTE | 2017-01-14 09:57 | RADIOLOGY REPORT ---
EXAMINATION: XR PORTABLE CHEST CLINICAL INFORMATION: Confirm ET tube position. Patient intubated. COMPARISON: X-ray portable chest 2016. TECHNIQUE: Portable AP view of the chest was obtained. FINDINGS: The endotracheal tube terminates approximately 1.4 cm above the kristy. Right-sided central venous catheter overlies the SVC. Nasogastric tube courses into the stomach. Worsening hypoinflation, pleural effusions and basilar opacities likely representing atelectasis. IMPRESSION: Endotracheal tube terminates approximately 1.4 cm above the kristy. Worsening hypoinflation, basilar atelectasis and pleural effusions.
--- NOTE | 2017-01-14 11:13 | PN- Cardiology ---
Subjective Subjective: The patient remains unresponsive. He is now off propofol. He remains on levophed He is still having some myoclonic seizures. His pupils remained small and fixed. He is not having any significant arrhythmias. He is mostly paced at 70 but occasionally will be in sinus rhythm at a slightly higher rate. Objective Vital Signs and I&Os Vital Signs Date Time Temp Pulse Resp B/P Pulse O2 O2 Flow FiO2 Ox Delivery Rate 01/14 1055 50 01/14 0829 50 01/14 0546 50 01/14 0400 95 Ventilator 50% 01/14 0314 50 / 0020 50 03/ 0000 98 Ventilator 50% 01/14 0000 97.7 67 20 108/52 98 Ventilator 50% 01/13 2210 50 / 2000 50 Ventilator 50% 01/13 1920 50 01/13 1813 97.1 70 20 110/57 03/ 1630 50 / 1600 98 Ventilator 50% 01/13 1600 97.1 70 20 114/52 98 Ventilator 50% 01/13 1359 50 / 1303 96.6 70 20 132/56 03/ 1200 97 Ventilator 50% Intake & Output 01/14 1600 / 0800 / 0000 / 1600 01/13 0800 01/13 0000 Intake Total 1345 1295.2 1878 1593.6 1800 Output Total 350 490 475 300 250 Balance 995 805.2 1403 1293.6 1550 Intake, IV 1345 1255.2 1848 1593.6 1800 Intake, Oral 0 0 0 0 Intake, Other 40 30 Number 0 0 Bowel Movements Output, 40 30 0 Gastric Drainage Output, Stool 0 Output, Urine 350 450 445 300 250 Physical Exam: He is comatose HEENT exam grossly normal Chest aerating both sides Heart regular no murmurs Current Medications: Current Medications Sig/Marcos Start time Last Medication Dose Route Stop Time Status Admin Acetaminophen 1,000 MG Q6P PRN 01/10 181 AC IV Amiodarone HCl/ 360 MG Q12H 01/10 1630 DC 01/13 Dextrose IV 0951 N/A 1 UNIT Ampicillin Sodium/ 3,000 MG Q6 01/10 1807 AC 01/14 Sulbactam Sodium IV 0627 Sodium Chloride 100 ML Dextrose/Sodium 1,000 ML Q13H 01/11 2245 AC 01/13 Chloride IV 2147 Heparin Sodium 5,000 UNIT Q8 01/12 0840 DC 01/14 (Porcine) SC 0627 Insulin Human Regular 0 Q6 01/10 1816 AC 01/14 SC 0627 Lacosamide 200 MG BID 01/14 2200 CAN Sodium Chloride 100 ML IV 01/14 2359 Lacosamide 200 MG BID 01/14 2200 AC Sodium Chloride 100 ML IV Lacosamide 400 MG 1000 01/14 1000 DC 01/14 Sodium Chloride 100 ML IV 01/14 1059 0945 Levetiracetam 1,000 MG Q6 01/12 1800 AC 01/14 Sodium Chloride 100 ML IV 0627 Morphine Sulfate 2 MG Q4P PRN 01/10 1815 AC IV Non-Formulary 0 SEE ADMIN CRITERIA 01/14 0915 DC Medication ANY Norepinephrine 4 MG .STK-MED ONE 01/13 1257 DC IV 01/13 1258 Norepinephrine 4 MG Q3 01/12 1200 AC 01/13 Sodium Chloride 250 ML IV 2149 Pantoprazole Sodium 40 MG DAILY 01/10 1810 AC 01/14 IV 0920 Potassium Chloride 20 MEQ Q1H 01/14 0845 DC 01/14 IV 01/14 0946 1040 Potassium Chloride 20 MEQ Q1H 01/13 1115 DC 01/13 IV 01/13 1216 1326 Potassium Phosphate 15 mMol ONE ONE 01/13 2200 DC 01/13 Sodium Chloride 250 ML IV 01/14 0203 2337 Propofol 1,000 MG Q8H 01/10 2200 AC 01/14 N/A 100 ML IV 0627 Valproate Sodium 500 MG Q8 01/12 2200 AC 01/14 Sodium Chloride 100 ML IV 0627 Results Last 48 Hrs of Labs/Mics: Laboratory Tests 01/14/17 0500: Anion Gap 7, Estimated GFR > 60, Glucose 92, Calcium 7.5 L, Phosphorus 2.5, Magnesium 1.9, Total Bilirubin 0.5, AST 36, ALT 68, Albumin 1.9 L, PT 12.2, INR 1.16, APTT 28, Fibrinogen Activity 407 H, Fibrin Degrad Products >10 but < 40 ug/ml H, CBC w Diff NO MAN DIFF REQ, RBC 2.90 L, MCV 88.1, MCH 29.3, RDW 15.3 H, MPV 9.6, Gran % 90.4 H, Lymphocytes % 6.0 L, Monocytes % 3.5, Eosinophils % 0, Basophils % 0.1, Absolute Granulocytes 8.3 H, Absolute Lymphocytes 0.6 L, Absolute Monocytes 0.3, Absolute Eosinophils 0, Absolute Basophils 0, PUBS MCHC 33.2 01/13/171999: Anion Gap 7, Estimated GFR > 60, Glucose 114 H, Calcium 7.4 L, Phosphorus 1.6 L, Magnesium 2.0, Total Bilirubin 0.5, AST 39, ALT 77 H, Albumin 1.9 L, CBC w Diff NO MAN DIFF REQ, RBC 2.75 L, MCV 87.3, MCH 30.1, RDW 15.6 H, MPV 10.5 H, Gran % 90.0 H, Lymphocytes % 5.7 L, Monocytes % 4.1, Eosinophils % 0.1, Basophils % 0.1, Absolute Granulocytes 9.3 H, Absolute Lymphocytes 0.6 L, Absolute Monocytes 0.4, Absolute Eosinophils 0, Absolute Basophils 0, PUBS MCHC 34.5 01/13/17 09: pH 7.34 L, pCO2 28.3 L, pO2 86, HCO3 15 L, ABG O2 Sat (Measured) 96.0, Carboxyhemoglobin 0.3 L, O2 Concentration % 50, Respiration Rate 18, O2 Delivery Method VENT, Vent Mode AC, Expiratory Pressure 5, Tidal Volume 550, Phlebotomy Draw Site RIGHT RADIAL 01/13/175: Anion Gap 11, Estimated GFR > 60, Glucose 117 H, Calcium 7.3 L, Phosphorus 2.6 , Magnesium 2.2, Total Bilirubin 0.5, AST 49, ALT 96 H, Albumin 2.1 L, CBC w Diff MAN DIFF ORDERED, RBC 2.85 L, MCV 87.8, MCH 30.1, RDW 15.2 H, MPV 10.4, Gran % 87.7 H, Lymphocytes % 6.3 L, Monocytes % 6.0, Eosinophils % 0, Basophils % 0 L, Absolute Granulocytes 14.0 H, Segmented Neutrophils 82 H, Band Neutrophils 9 H, Absolute Lymphocytes 1.0 L, Lymphocytes 8 L, Monocytes 1 L, Absolute Monocytes 1.0 H, Absolute Eosinophils 0, Absolute Basophils 0, Platelet Estimate DECREASED, Poikilocytosis 1+, Anisocytosis 1+, Ovalocytes , PUBS MCHC 34.3, Valproic Acid 76.1 01/13/17 0038: Anion Gap 10, Estimated GFR > 60, Glucose 95, Calcium 7.3 L, Phosphorus 2.6, Magnesium 2.1, Total Bilirubin 0.5, AST 54, ALT 98 H, Albumin 2.1 L 01/12/17 1200: Anion Gap 12, Estimated GFR > 60, Glucose 223 H, Lactic Acid 2.7 H, Calcium 7.3 L, Phosphorus 2.6, Magnesium 1.6, Total Bilirubin 0.5, AST 70 H, ALT 118 H, Albumin 2.1 L, PT 15.2 H, INR 1.45 H, APTT 30, Fibrinogen Activity 258, Fibrin Degrad Products > 40 ug/ml H, CBC w Diff MAN DIFF ORDERED, RBC 2.99 L, MCV 87.3, MCH 29.2, RDW 14.5, MPV 9.7, Gran % 91.9 H, Lymphocytes % 3.8 L, Monocytes % 4.2, Eosinophils % 0, Basophils % 0.1, Absolute Granulocytes 19.5 H , Segmented Neutrophils 87 H, Band Neutrophils 8 H, Absolute Lymphocytes 0.8 L, Lymphocytes 4 L, Monocytes 1 L, Absolute Monocytes 0.9 H, Absolute Eosinophils 0, Absolute Basophils 0, Platelet Estimate VERIFIED BY SMEAR, Polychromasia 1+, Poikilocytosis 2+, Ovalocytes 1+, [place] Cells 2+, PUBS MCHC 33.4, Valproic Acid 56.5 Recent Imaging Studies: PATIENT: NEVIN UMAÑA PRESENT AGE: 81 PATIENT ACCOUNT NO: [id number] : 36 LOCATION: [facility] ORDERING PHYSICIAN: CHELSI BATES MD SERVICE DATE: 01/14/17 EXAM TYPE: RAD - XRY-PORTABLE CHEST XRAY EXAMINATION: XR PORTABLE CHEST CLINICAL INFORMATION: Confirm ET tube position. Patient intubated. COMPARISON: X-ray portable chest 2016. TECHNIQUE: Portable AP view of the chest was obtained. FINDINGS: The endotracheal tube terminates approximately 1.4 cm above the kristy. Right-sided central venous catheter overlies the SVC. Nasogastric tube courses into the stomach. Worsening hypoinflation, pleural effusions and basilar opacities likely representing atelectasis. IMPRESSION: Endotracheal tube terminates approximately 1.4 cm above the kristy. Worsening hypoinflation, basilar atelectasis and pleural effusions. DICTATED BY: WENDY RAMÍREZ MD DATE/TIME DICTATED:01/14/17600 FACSIMILE MACHINE OPERATOR:MAGNOLIA DATE/TIME TRANSCRIBED:01/14/17600 CONFIDENTIAL, DO NOT COPY WITHOUT APPROPRIATE AUTHORIZATION. <Electronically signed in Other Vendor System> SIGNED BY: WENDY RAMÍREZ MD 01/28 0957 Assessment/Plan Assessment/Plan The patient is unresponsive after cardiac arrest. He has underlying heart disease. He is maintaining a blood pressure on levophed. Amiodarone and propofol have been discontinued. Neurologic status is poor but final determination is pending. He has some positive cardiac enzymes which is likely demand ischemia in the setting of underlying coronary disease. His heart rate has been increased by increasing the pacing rate on his defibrillator to 70. He is sometimes overriding the pacemaker with his own rhythm. His echocardiogram shows reduced left ventricular systolic function. There is no evidence of congestive heart failure. There have been no clinically significant arrhythmias noted. Recommend continue monitoring until a final determination is made regarding level of care. Continue telemetry? Not applicable
--- NOTE | 2017-01-14 12:19 | NUR ---
THE PT'S LEVOPHED HAS BEEN TITRATED DOWN OVER THE COURSE OF THE MORNING TO THE CURRENT RATE OF 3MCG/MIN OR 11.3ML/HR. THE PT WAS STARTED ON LACOCAMIDE AT 1000. PT GIVEN INITIAL LOADING DOSE OF 400MG AND WILL RECEIVE THE MAINTENANCE DOSE OF 200MG AT 2200. STILL HAVING CONTINUOUS MYOCLONIC TWITCHES. REC'D A ONE TIME 500ML WATER FLUSH AT 1115 AND WILL RECEIVE 200ML WATER FLUSHES Q4H.
--- NOTE | 2017-01-14 15:01 | Event Note ---
Event Note Event Note: I just spoke to Dr Clarence Santana as he was following the patient last few days. He is not hematologist oncologist today, but since he knew the patient, I conveyed the family's message and the patient's situational update. Per Dr Santana, it has been three days already since the cardiac arrest and signs of meaningful recovery would be seen by now if it were to happen. This is considering that he has been off Propofol since this morning and three other anti-seizure meds are on, and he still has some facial twitches. He asked me to convey the message to attending and thus the family. If needed, we can call hematologist oncologist neurologist to assess the situation for recommendation. Dr Mcdermott will have a family meeting regarding golas of care. Resident Dr Vin arora.
[2017-01-14 16:00] VITALS: BP 118/50
--- NOTE | 2017-01-14 16:21 | PN- Neurology ---
Subjective Subjective: Not much change, still with occasional twitching. Family accepting grim prognosis. Review of Systems: no change. Objective Vital Signs and I&Os Vital Signs Date Time Temp Pulse Resp B/P Pulse O2 O2 Flow FiO2 Ox Delivery Rate 01/14 1430 50 / 1200 96 Ventilator 50% 01/14 1055 50 01/14 0829 50 01/14 0800 95 Ventilator 50% 01/14 0800 97.6 76 26 124/56 95 Ventilator 50% 01/14 0546 50 01/14 0400 95 Ventilator 50% 01/14 0314 50 01/14 0020 50 03/ 0000 98 Ventilator 50% 03/ 0000 97.7 67 20 108/52 98 Ventilator 50% 01/13 2210 50 01/13 2000 50 Ventilator 50% 01/13 1920 50 01/13 1813 97.1 70 20 110/57 01/13 1630 50 Intake & Output 01/14 1600 / 0800 / 0000 / 1600 01/13 0800 01/13 0000 Intake Total 1664 1345 1295.2 1878 1593.6 1800 Output Total 400 350 490 475 300 250 Balance 1264 995 805.2 1403 1293.6 1550 Intake, IV 1164 1345 1255.2 1848 1593.6 1800 Intake, Oral 0 0 0 0 Intake, Other 500 40 30 Number 0 0 Bowel Movements Output, 40 30 0 Gastric Drainage Output, Stool 0 Output, Urine 400 350 450 445 300 250 Patient 166 lb Weight Physical Exam: No abnormal movement notes. Pupils are small, unreactive. Corneal reflex is absent. Doll's eye reflex absent. No response to tactile stimulation. Current Medications: Current Medications Sig/Marcos Start time Last Medication Dose Route Stop Time Status Admin Acetaminophen 1,000 MG Q6P PRN 01/10 1815 AC IV Ampicillin Sodium/ 3,000 MG Q6 01/10 1807 AC 01/14 Sulbactam Sodium IV 1138 Sodium Chloride 100 ML Dextrose/Sodium 1,000 ML Q13H 01/11 2245 AC 01/13 Chloride IV 2147 Heparin Sodium 5,000 UNIT Q8 01/12 0840 DC 01/14 (Porcine) SC 0627 Insulin Human Regular 0 Q6 01/10 1816 AC 01/14 SC 1138 Lacosamide 200 MG BID 01/14 2200 CAN Sodium Chloride 100 ML IV 01/14 2359 Lacosamide 200 MG BID 01/14 2200 AC Sodium Chloride 100 ML IV Lacosamide 400 MG 1000 01/14 1000 DC 01/14 Sodium Chloride 100 ML IV 01/14 1059 0945 Levetiracetam 1,000 MG Q6 01/12 1800 AC 01/14 Sodium Chloride 100 ML IV 1138 Morphine Sulfate 2 MG Q4P PRN 01/10 1815 AC IV Non-Formulary 0 SEE ADMIN CRITERIA 01/14 0915 DC Medication ANY Norepinephrine 4 MG Q3 01/12 1200 AC 01/13 Sodium Chloride 250 ML IV 2149 Pantoprazole Sodium 40 MG DAILY 01/10 1810 AC 01/14 IV 0920 Potassium Chloride 20 MEQ Q1H 01/14 0845 DC 01/14 IV 01/14 0946 1040 Potassium Phosphate 15 mMol ONE ONE 01/13 2200 DC 01/13 Sodium Chloride 250 ML IV 01/14 0203 2337 Propofol 1,000 MG Q8H 01/10 2200 DC 01/14 N/A 100 ML IV 0627 Valproate Sodium 500 MG Q8 01/12 2200 AC 01/14 Sodium Chloride 100 ML IV 1359 Results Last 24 Hours of Lab Results: Laboratory Tests 01/14 0500 Chemistry Sodium (137 - 145 mmol/L) 148 H Potassium (3.5 - 5.1 mmol/L) 3.7 Chloride (98 - 107 mmol/L) 124 H Carbon Dioxide (22 - 30 mmol/L) 17 L Anion Gap (5 - 16) 7 BUN (9 - 20 mg/dL) 10 Creatinine (0.7 - 1.2 mg/dL) 0.7 Estimated GFR (>60 ml/min) > 60 Glucose (65 - 99 mg/dL) 92 Calcium (8.4 - 10.2 mg/dL) 7.5 L Phosphorus (2.5 - 4.5 mg/dL) 2.5 Magnesium (1.6 - 2.3 mg/dL) 1.9 Total Bilirubin (0.2 - 1.3 mg/dL) 0.5 AST (17 - 59 U/L) 36 ALT (21 - 72 U/L) 68 Albumin (3.5 - 5.0 g/dL) 1.9 L Coagulation PT (9.4 - 12.5 SEC) 12.2 INR (0.90 - 1.17) 1.16 APTT (25 - 37 SEC) 28 Fibrinogen Activity (200 - 393 MG/DL) 407 H Fibrin Degrad Products (< 10 ug/ml) >10 but < 40 ug/ml H Hematology CBC w Diff NO MAN DIFF REQ WBC (4.8 - 10.8 /CUMM) 9.2 RBC (4.70 - 6.10 /CUMM) 2.90 L Hgb (14.0 - 18.0 G/DL) 8.5 L Hct (42 - 52 %) 25.5 L MCV (80.0 - 94.0 FL) 88.1 MCH (27.0 - 31.0 PG) 29.3 RDW (11.5 - 14.5 %) 15.3 H Plt Count (130 - 400 /CUMM) 98 L MPV (7.4 - 10.4 FL) 9.6 Gran % (42.2 - 75.2 %) 90.4 H Lymphocytes % (20.5 - 51.1 %) 6.0 L Monocytes % (1.7 - 9.3 %) 3.5 Eosinophils % (0 - 5 %) 0 Basophils % (0.0 - 2.0 %) 0.1 Absolute Granulocytes (1.4 - 6.5 /CUMM) 8.3 H Absolute Lymphocytes (1.2 - 3.4 /CUMM) 0.6 L Absolute Monocytes (0.10 - 0.60 /CUMM) 0.3 Absolute Eosinophils (0.0 - 0.7 /CUMM) 0 Absolute Basophils (0.0 - 0.2 /CUMM) 0 PUBS MCHC (33.0 - 37.0 G/DL) 33.2 01/14 2000 Chemistry Sodium (137 - 145 mmol/L) 146 H Potassium (3.5 - 5.1 mmol/L) 3.7 Chloride (98 - 107 mmol/L) 121 H Carbon Dioxide (22 - 30 mmol/L) 17 L Anion Gap (5 - 16) 7 BUN (9 - 20 mg/dL) 12 Creatinine (0.7 - 1.2 mg/dL) 0.7 Estimated GFR (>60 ml/min) > 60 Glucose (65 - 99 mg/dL) 114 H Calcium (8.4 - 10.2 mg/dL) 7.4 L Phosphorus (2.5 - 4.5 mg/dL) 1.6 L Magnesium (1.6 - 2.3 mg/dL) 2.0 Total Bilirubin (0.2 - 1.3 mg/dL) 0.5 AST (17 - 59 U/L) 39 ALT (21 - 72 U/L) 77 H Albumin (3.5 - 5.0 g/dL) 1.9 L Hematology CBC w Diff NO MAN DIFF REQ WBC (4.8 - 10.8 /CUMM) 10.4 RBC (4.70 - 6.10 /CUMM) 2.75 L Hgb (14.0 - 18.0 G/DL) 8.3 L Hct (42 - 52 %) 24.0 L MCV (80.0 - 94.0 FL) 87.3 MCH (27.0 - 31.0 PG) 30.1 RDW (11.5 - 14.5 %) 15.6 H Plt Count (130 - 400 /CUMM) 107 L MPV (7.4 - 10.4 FL) 10.5 H Gran % (42.2 - 75.2 %) 90.0 H Lymphocytes % (20.5 - 51.1 %) 5.7 L Monocytes % (1.7 - 9.3 %) 4.1 Eosinophils % (0 - 5 %) 0.1 Basophils % (0.0 - 2.0 %) 0.1 Absolute Granulocytes (1.4 - 6.5 /CUMM) 9.3 H Absolute Lymphocytes (1.2 - 3.4 /CUMM) 0.6 L Absolute Monocytes (0.10 - 0.60 /CUMM) 0.4 Absolute Eosinophils (0.0 - 0.7 /CUMM) 0 Absolute Basophils (0.0 - 0.2 /CUMM) 0 PUBS MCHC (33.0 - 37.0 G/DL) 34.5 Recent Imaging Studies: Impression: Abnormal EEG due to loss of cortical activitywhich n\may be due to propofol and sharp wave bursts which are potentially epileptogenic Assessment/Plan Assessment: 81 year old s/p asphyxation due to food products that got stuck in trachea, 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 Despite addition of numerous medications for seizure control he continues to have this pattern. This may indicative of a pattern of anoxic brain injury rather than NCSE and regardless is indicative of a poor prognosis. Plan: Recommend comfort measures. This has been discussed with the family by the ICU team.
--- NOTE | 2017-01-14 19:17 | NUR ---
THE LEVOPHED DRIP WAS TURNED OFF AT 1730. BP AT 1800 AND 1815 WAS IN THE LOW 80'S, HOWEVER, BY 1830 THE SBP HAD INCREASED TO THE 90'S. DR TOURE MADE AWARE THE MAP WAS 61 AT 1845 AND PER IT IS OK.
[2017-01-15] VITALS: BP 122/42
[2017-01-15 05:32] LABS: PT 13.1 SEC (9.4-12.5); PTT 29 SEC (25-37)
[2017-01-15 05:39] LABS: ABSOLUTE BASOPHIL COUNT 0 /CUMM (0.0-0.2); ABSOLUTE EOSINOPHIL COUNT 0 /CUMM (0.0-0.7); ABSOLUTE GRANULOCYTE CT 4.9 /CUMM (1.4-6.5); ABSOLUTE LYMPH COUNT 0.3 /CUMM (1.2-3.4); ABSOLUTE MONOCYTE COUNT 0.2 /CUMM (0.10-0.60); BASOPHIL % 0 % (0.0-2.0); EOSINOPHIL % 0.1 % (0-5); GRANULOCYTE % 89.4 % (42.2-75.2); HEMATOCRIT 21.4 % (42-52); MEAN CORPUSCULAR HGB 30.1 PG (27.0-31.0); MEAN CORPUSCULAR HGB CONC 34.4 G/DL (33.0-37.0); MEAN CORPUSCULAR VOLUME 87.3 FL (80.0-94.0); MEAN PLATELET VOLUME 10.9 FL (7.4-10.4); PLATELET COUNT 71 /CUMM (130-400); RBC DISTRIBUTION WIDTH 15.6 % (11.5-14.5); RED BLOOD CELL CT 2.45 /CUMM (4.70-6.10); WHITE BLOOD CELL COUNT 5.4 /CUMM (4.8-10.8)
[2017-01-15 08:00] VITALS: BP 118/40
--- NOTE | 2017-01-15 08:17 | PN- Resident CRCU ---
Subjective HPI/CRCU Issues: Levophed drip was discontinued yesterday evening. Patient has remained hemodynamically stable and with good urine output. He is intubated and on mechanical ventilation day #6 with the following vent settings: AC mode, tidal volume 550, FiO2 50%, RR 20 and PEEP 5. Patient's gums were noted to be bleeding overnight. This morning his H/H had dropped down to 7.4/21.4. Patient was seen and examined this morning. He remains unresponsive with no purposeful movements. He continues to have facial twitches. Later in the day mutual decision was reached by family members to change his code status to comfort care and terminally extubate him in light of his extremely guarded prognosis. Attending Dr. Mcdermott was called to bedside who had an extensive discussion with the family regarding goals of care and extubation. Patient was subsequently extubated with the placement of a magnet over his defibrillator. Approximately 30 minutes later, at 4:50 PM, patient with no cardiac activity detected on the monitor. Objective Vital Signs & I&O Last 8 Hrs of Vitals and I&O: Intake & Output 01/15 1600 Intake Total Output Total Balance Patient 79.917 kg Weight Exam General Appearance: sedated, intubated Head: atraumatic, normal appearance Cardiovascular: regular rate/rhythm, normal S1 and S2, no murmurs, rubs or gallops Gastrointestinal: soft, non-tender, absent bowel sounds Extremities: no edema Cranial Nerves: bilateral pupils sluggish to light Skin: warm/dry Current Medications: Current Medications Sig/Marcos Start time Last Medication Dose Route Stop Time Status Admin Acetaminophen 1,000 MG Q6P PRN 01/10 1815 AC IV Ampicillin Sodium/ 3,000 MG Q6 01/10 1807 AC /04 Sulbactam Sodium IV 1218 Sodium Chloride 100 ML Dextrose 12.5 GM ONCE ONE 01/15 0030 DC 01/15 IV 01/15 0031 0028 Dextrose/Sodium 1,000 ML Q13H 01/11 2245 AC /04 Chloride IV 0631 Insulin Human Regular 0 Q6 01/10 1816 AC 01/14 SC 1138 Lacosamide 200 MG BID 01/14 2200 AC /04 Sodium Chloride 100 ML IV 1043 Levetiracetam 1,000 MG Q6 01/12 1800 AC /04 Sodium Chloride 100 ML IV 1218 Magnesium Sulfate 1 GM ONCE ONE 01/15 0830 DC 01/15 Dextrose/Water 100 ML IV 01/15 1229 1042 Morphine Sulfate 2 MG Q4P PRN 01/10 1815 AC 01/15 IV 0204 Norepinephrine 4 MG Q3 01/12 1200 DC 01/13 Sodium Chloride 250 ML IV 2149 Pantoprazole Sodium 40 MG DAILY 01/10 1810 AC 01/15 IV 1056 Potassium Chloride 20 MEQ Q1H 01/15 0645 DC 01/15 IV 01/15 0746 0915 Propofol 1,000 MG Q8H 01/10 2200 DC 01/14 N/A 100 ML IV 06 Valproate Sodium 500 MG Q8 01/12 2200 AC 01/15 Sodium Chloride 100 ML IV 0619 Results Results: Laboratory Tests 01/15 01/15 1230 0600 Blood Gas pH (7.35 - 7.45 PH) 7.46 H pCO2 (35 - 45 TORR) 22 L pO2 (80 - 100 TORR) 73 L HCO3 (21 - 28 MEQ/L) 15 L ABG O2 Sat (Measured) (>96.0 %) 94.0 L P-50 (Temp Corrected) N Carboxyhemoglobin (1.5 - 5.0 %) 0 L O2 Concentration % .50 Respiration Rate (BPM) 20 O2 Delivery Method VENT Vent Mode A/C Expiratory Pressure (CMH2O/P) 5 Tidal Volume (CC) 550 Hematology CBC w Diff Pending WBC Pending RBC Pending Hgb Pending Hct Pending MCV Pending MCH Pending RDW Pending Plt Count Pending MPV Pending PUBS MCHC Pending Miscellaneous Phlebotomy Draw Site RIGHT RADIAL 01/15 0450 Chemistry Sodium (137 - 145 mmol/L) 146 H Potassium (3.5 - 5.1 mmol/L) 3.6 Chloride (98 - 107 mmol/L) 120 H Carbon Dioxide (22 - 30 mmol/L) 18 L Anion Gap (5 - 16) 8 BUN (9 - 20 mg/dL) 11 Creatinine (0.7 - 1.2 mg/dL) 0.8 Estimated GFR (>60 ml/min) > 60 Glucose (65 - 99 mg/dL) 82 Calcium (8.4 - 10.2 mg/dL) 7.3 L Phosphorus (2.5 - 4.5 mg/dL) 2.5 Magnesium (1.6 - 2.3 mg/dL) 1.9 Total Bilirubin (0.2 - 1.3 mg/dL) 0.5 AST (17 - 59 U/L) 30 ALT (21 - 72 U/L) 50 Albumin (3.5 - 5.0 g/dL) 1.7 L Coagulation PT (9.4 - 12.5 SEC) 13.1 H INR (0.90 - 1.17) 1.25 H APTT (25 - 37 SEC) 29 Fibrinogen Activity (200 - 393 MG/DL) 343 Fibrin Degrad Products (< 10 ug/ml) >10 but < 40 ug/ml H Hematology CBC w Diff NO MAN DIFF REQ WBC (4.8 - 10.8 /CUMM) 5.4 RBC (4.70 - 6.10 /CUMM) 2.45 L Hgb (14.0 - 18.0 G/DL) 7.4 *L Hct (42 - 52 %) 21.4 L MCV (80.0 - 94.0 FL) 87.3 MCH (27.0 - 31.0 PG) 30.1 RDW (11.5 - 14.5 %) 15.6 H Plt Count (130 - 400 /CUMM) 71 L MPV (7.4 - 10.4 FL) 10.9 H Gran % (42.2 - 75.2 %) 89.4 H Lymphocytes % (20.5 - 51.1 %) 6.1 L Monocytes % (1.7 - 9.3 %) 4.4 Eosinophils % (0 - 5 %) 0.1 Basophils % (0.0 - 2.0 %) 0 L Absolute Granulocytes (1.4 - 6.5 /CUMM) 4.9 Absolute Lymphocytes (1.2 - 3.4 /CUMM) 0.3 L Absolute Monocytes (0.10 - 0.60 /CUMM) 0.2 Absolute Eosinophils (0.0 - 0.7 /CUMM) 0 Absolute Basophils (0.0 - 0.2 /CUMM) 0 PUBS MCHC (33.0 - 37.0 G/DL) 34.4 CXR Findings: Endotracheal tube tip approximately 1.5 cm above the kristy. Very small lung volumes with bibasilar disease and probable pleural effusions. Impression/Plan Impression/Problem List Impression: 81 y/o M with PMHx of T2DM, HTN and CAD who was admitted after choking episode, leading to aspiration followed by cardiopulmonary arrest requiring resuscitation , who remained on mechanical ventilation with suspected anoxic brain injury. #Cardiopulmonary arrest: Patient was made comfort care and extubated according to the wishes of POA, with support from other members of his family. He was terminally extubated and subsequently at 4:50 PM. Problem List: 1. Cardiopulmonary arrest Pain Ratin Tomorrow's Labs & Rationales: None (patient ) Plan DVT/Prophylaxis: mechanical Code Status: Do Not Resucitate/Intubat
--- NOTE | 2017-01-15 09:09 | PN- Pulmonary ---
Subjective HPI/Critical Care Issues: Patient is ventilated and unresponsive Objective Current Medications: Current Medications Sig/Marcos Start time Last Medication Dose Route Stop Time Status Admin Acetaminophen 1,000 MG Q6P PRN 01/10 181 AC IV Ampicillin Sodium/ 3,000 MG Q6 01/10 1807 AC 01/15 Sulbactam Sodium IV 0610 Sodium Chloride 100 ML Dextrose 12.5 GM ONCE ONE 01/15 0030 DC 01/15 IV 01/15 0031 0028 Dextrose/Sodium 1,000 ML Q13H 01/11 2245 AC 01/15 Chloride IV 0631 Heparin Sodium 5,000 UNIT Q8 01/12 0840 DC 01/14 (Porcine) SC 0627 Insulin Human Regular 0 Q6 01/10 1816 AC 01/14 SC 1138 Lacosamide 200 MG BID 01/14 2200 CAN Sodium Chloride 100 ML IV 01/14 2359 Lacosamide 200 MG BID 01/14 2200 AC 01/14 Sodium Chloride 100 ML IV 2250 Lacosamide 400 MG 1000 01/14 1000 DC 01/14 Sodium Chloride 100 ML IV 01/14 1059 0945 Levetiracetam 1,000 MG Q6 01/12 1800 AC 01/15 Sodium Chloride 100 ML IV 0555 Magnesium Sulfate 1 GM ONCE ONE 01/15 0830 AC Dextrose/Water 100 ML IV 01/15 1229 Morphine Sulfate 2 MG Q4P PRN 01/10 1815 AC 01/15 IV 0204 Non-Formulary 0 SEE ADMIN CRITERIA 01/14 0915 DC Medication ANY Norepinephrine 4 MG Q3 01/12 1200 DC 01/13 Sodium Chloride 250 ML IV 2149 Pantoprazole Sodium 40 MG DAILY 01/10 1810 AC 01/14 IV 0920 Potassium Chloride 20 MEQ Q1H 01/15 0645 DC 01/15 IV 01/15 0746 0810 Potassium Chloride 20 MEQ Q1H 01/14 0845 DC 01/14 IV 01/14 0946 1040 Propofol 1,000 MG Q8H 01/10 2200 DC 01/14 N/A 100 ML IV 0627 Valproate Sodium 500 MG Q8 01/12 2200 AC 01/15 Sodium Chloride 100 ML IV 0619 Vital Signs & I&O Last 24 Hrs of Vitals and I&O: Vital Signs Date Time Temp Pulse Resp B/P Pulse O2 O2 Flow FiO2 Ox Delivery Rate 01/15 0803 50 03/04 0619 50 03/04 0400 93 Ventilator 50% 03/04 0300 50 03/04 0035 50 03/04 0000 95 Ventilator 50% 03/04 0000 98.4 74 26 122/42 95 Ventilator 50% 03/03 2255 50 03/03 2000 95 Ventilator 50% 03/03 1900 50 03/03 1700 50 03/03 1600 96 Ventilator 50% 03/03 1600 97.7 70 26 118/50 96 Ventilator 50% 03/03 1430 50 03/03 1200 96 Ventilator 50% 03/03 1055 50 Intake & Output 03/04 1600 03/04 0800 03/04 0000 Intake Total 1321 1119 Output Total 420 370 Balance 901 749 Intake, IV 921 719 Intake, Other 400 400 Number 0 0 Bowel Movements Output, Urine 420 370 Is hemodynamically stable intubated with adequate urine output of his chest shows occasional rhonchi cardiac exam shows normal S1 and S2 abdomen exam is soft nontender Impression/Plan Impression/Plan Impression/Plan: 81-year-old gentleman status post cardiac arrest with severe anoxic brain damage with no expectation for neurologic recovery. Propofol has been discontinued Recommendations: Continue mechanical ventilation pending family decision on direction of care continue free water or hypernatremia hyperchloremia review medications with thrombocytopenia repeat hematocrit this afternoon and anemia is worsening will need to consider transfusion 1 unit packed cells. Hilliard remains extremely poor
--- NOTE | 2017-01-15 10:27 | RADIOLOGY REPORT ---
EXAMINATION: XR PORTABLE CHEST CLINICAL INFORMATION: Confirm ET tube position. COMPARISON: January 14, 2017 and studies dating back to January 10, 2017 TECHNIQUE: Portable AP portable view of the chest was obtained. FINDINGS: Endotracheal tube tip appears to lie 1.5 cm above the kristy. Nasogastric tube is seen traversing to the stomach. Pacemaker/defibrillator in place. Lung volumes are small. Pacemaker power pack overlies the left hemithorax making evaluation difficult. Hazy density seen at both lung bases with the appearance of atelectasis and pleural effusion. Tip of right internal jugular central venous catheter is seen within the superior vena cava. Patient status post median sternotomy. There appears to have been some improvement in what appeared to be pulmonary edema from prior days study. IMPRESSION: Endotracheal tube tip approximately 1.5 cm above the kristy. Very small lung volumes with bibasilar disease and probable pleural effusions.
--- NOTE | 2017-01-15 10:57 | PN- Cardiology ---
Subjective Subjective: The patient remains intubated and unresponsive. Supportive care in place pending further decisions by the patient's family. Hemodynamically stable at the moment. Intermittent seizure activity noted Objective Vital Signs and I&Os Vital Signs Date Time Temp Pulse Resp B/P Pulse O2 O2 Flow FiO2 Ox Delivery Rate 03/ 0803 50 03/04 0619 50 03/04 0400 93 Ventilator 50% 03/ 0300 50 / 0035 50 03/ 0000 95 Ventilator 50% 03/ 0000 98.4 74 26 122/42 95 Ventilator 50% / 2255 50 03/ 2000 95 Ventilator 50% / 1900 50 03/03 1700 50 / 1600 96 Ventilator 50% / 1600 97.7 70 26 118/50 96 Ventilator 50% / 1430 50 / 1200 96 Ventilator 50% Intake & Output / 1600 / 0800 03/ 0000 / 1600 01/14 0800 01/14 0000 Intake Total 1321 1119 1664 1345 1295.2 Output Total 420 370 400 350 490 Balance 385 813 4930 995 805.2 Intake, IV 292 403 8465 1345 1255.2 Intake, Oral 0 0 Intake, Other 400 400 500 40 Number 0 0 0 Bowel Movements Output, 40 Gastric Drainage Output, Urine 420 370 400 350 450 Patient 166 lb Weight Physical Exam: General Appearance intubated, intermittent twitching noted without generalized seizure activity Skin warm, dry HEENT Atraumatic, pupils 2 mm sluggish to react Neck supple, carotids normal bilaterally Cardiovascular regular rate, S1 and S2 heard, no audible murmurs Lungs bilateral anterior rhonchi heard Abdomen soft, absent bowel sound, nontender Extremities no edema Current Medications: Current Medications Sig/Marcos Start time Last Medication Dose Route Stop Time Status Admin Acetaminophen 1,000 MG Q6P PRN 01/10 181 AC IV Ampicillin Sodium/ 3,000 MG Q6 01/10 180 AC 01/15 Sulbactam Sodium IV 0610 Sodium Chloride 100 ML Dextrose 12.5 GM ONCE ONE 01/15 0030 DC 01/15 IV 01/15 0031 0028 Dextrose/Sodium 1,000 ML Q13H 01/11 2245 AC 01/15 Chloride IV 0631 Insulin Human Regular 0 Q6 01/10 181 AC 01/14 SC 1138 Lacosamide 200 MG BID 01/14 220 AC 01/14 Sodium Chloride 100 ML IV 2250 Lacosamide 400 MG 1000 01/14 1000 DC 01/14 Sodium Chloride 100 ML IV 01/14 1059 0945 Levetiracetam 1,000 MG Q6 01/12 1800 AC 01/15 Sodium Chloride 100 ML IV 0555 Magnesium Sulfate 1 GM ONCE ONE 01/15 0830 AC Dextrose/Water 100 ML IV 01/15 1229 Morphine Sulfate 2 MG Q4P PRN 01/10 181 AC 01/15 IV 0204 Norepinephrine 4 MG Q3 01/12 1200 DC 01/13 Sodium Chloride 250 ML IV 2149 Pantoprazole Sodium 40 MG DAILY 01/10 181 AC 01/14 IV 0920 Potassium Chloride 20 MEQ Q1H 01/15 0645 DC 01/15 IV 01/15 0746 0810 Propofol 1,000 MG Q8H 01/10 220 DC 01/14 N/A 100 ML IV 0627 Valproate Sodium 500 MG Q8 01/12 220 AC 01/15 Sodium Chloride 100 ML IV 0619 Results Last 48 Hrs of Labs/Mics: Laboratory Tests 01/15/17 0600: pH 7.46 H, pCO2 22 L, pO2 73 L, HCO3 15 L, ABG O2 Sat (Measured) 94.0 L, P- 50 (Temp Corrected) N, Carboxyhemoglobin 0 L, O2 Concentration % .50, Respiration Rate 20, O2 Delivery Method VENT, Vent Mode A/C, Expiratory Pressure 5, Tidal Volume 550, Phlebotomy Draw Site RIGHT RADIAL 01/15/17 0450: Anion Gap 8, Estimated GFR > 60, Glucose 82, Calcium 7.3 L, Phosphorus 2.5, Magnesium 1.9, Total Bilirubin 0.5, AST 30, ALT 50, Albumin 1.7 L, PT 13.1 H, INR 1.25 H, APTT 29, Fibrinogen Activity 343, Fibrin Degrad Products >10 but < 40 ug/ml H, CBC w Diff NO MAN DIFF REQ, RBC 2.45 L, MCV 87.3, MCH 30.1, RDW 15.6 H, MPV 10.9 H, Gran % 89.4 H, Lymphocytes % 6.1 L, Monocytes % 4.4, Eosinophils % 0.1, Basophils % 0 L, Absolute Granulocytes 4.9, Absolute Lymphocytes 0.3 L, Absolute Monocytes 0.2, Absolute Eosinophils 0, Absolute Basophils 0, PUBS MCHC 34.4 01/14/17 0500: Anion Gap 7, Estimated GFR > 60, Glucose 92, Calcium 7.5 L, Phosphorus 2.5, Magnesium 1.9, Total Bilirubin 0.5, AST 36, ALT 68, Albumin 1.9 L, PT 12.2, INR 1.16, APTT 28, Fibrinogen Activity 407 H, Fibrin Degrad Products >10 but < 40 ug/ml H, CBC w Diff NO MAN DIFF REQ, RBC 2.90 L, MCV 88.1, MCH 29.3, RDW 15.3 H, MPV 9.6, Gran % 90.4 H, Lymphocytes % 6.0 L, Monocytes % 3.5, Eosinophils % 0, Basophils % 0.1, Absolute Granulocytes 8.3 H, Absolute Lymphocytes 0.6 L, Absolute Monocytes 0.3, Absolute Eosinophils 0, Absolute Basophils 0, PUBS MCHC 33.2 01/13/17 2000: Anion Gap 7, Estimated GFR > 60, Glucose 114 H, Calcium 7.4 L, Phosphorus 1.6 L, Magnesium 2.0, Total Bilirubin 0.5, AST 39, ALT 77 H, Albumin 1.9 L, CBC w Diff NO MAN DIFF REQ, RBC 2.75 L, MCV 87.3, MCH 30.1, RDW 15.6 H, MPV 10.5 H, Gran % 90.0 H, Lymphocytes % 5.7 L, Monocytes % 4.1, Eosinophils % 0.1, Basophils % 0.1, Absolute Granulocytes 9.3 H, Absolute Lymphocytes 0.6 L, Absolute Monocytes 0.4, Absolute Eosinophils 0, Absolute Basophils 0, PUBS MCHC 34.5 Assessment/Plan Assessment/Plan Assessment: 1. Episode of choking followed by aspiration and cardiopulmonary arrest, with persistent hypotension requiring ongoing pressor therapy. 2. 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 The patient has ongoing twitching. 3. BCs positive for coag negative staph, contaminant versus respiratory source. 4. Electrolyte abnormalities, hypernatremia. 5. Positive troponin, likely secondary to demand ischemia in the setting of cardiac arrest. 6. Ventricular tachycardia, on amiodarone. 7. Respiratory failure secondary to aspiration pneumonia with an increase in oxygen requirement. 8. Malnutrition. Recommendations: -Continue all current supportive care -Further plans depending on family's long-term goals of care -As per the critical care team. Continue telemetry? No
[2017-01-15 13:07] LABS: ABSOLUTE BASOPHIL COUNT 0 /CUMM (0.0-0.2); ABSOLUTE EOSINOPHIL COUNT 0 /CUMM (0.0-0.7); ABSOLUTE GRANULOCYTE CT 5.6 /CUMM (1.4-6.5); ABSOLUTE LYMPH COUNT 0.4 /CUMM (1.2-3.4); ABSOLUTE MONOCYTE COUNT 0.4 /CUMM (0.10-0.60); BASOPHIL % 0 % (0.0-2.0); EOSINOPHIL % 0.1 % (0-5); GRANULOCYTE % 87.7 % (42.2-75.2); HEMATOCRIT 22.4 % (42-52); MEAN CORPUSCULAR HGB 29.2 PG (27.0-31.0); MEAN CORPUSCULAR VOLUME 88.6 FL (80.0-94.0); MEAN PLATELET VOLUME 9.9 FL (7.4-10.4); RBC DISTRIBUTION WIDTH 15.8 % (11.5-14.5); RED BLOOD CELL CT 2.53 /CUMM (4.70-6.10); WHITE BLOOD CELL COUNT 6.4 /CUMM (4.8-10.8)
[2017-01-15 13:29] LABS: PLATELET COUNT 75 /CUMM (130-400)
--- NOTE | 2017-01-15 17:34 | Event Note ---
Event Note Event Note: Patient's family members including his , who is the POA, expressed their desire to make him comfort care in light of his extremely guarded prognosis. They were aware that this would involve terminal extubation with the strong likelihood of patient expiring within a matter of minutes. However, they stated that they would like to talk to [facility] attending Dr. Mcdermott first before proceeding with the extubation. Dr. Mcdermott was called to the bedside and had an extensive discussion with the family regarding goals of care, clearly explaining what extubation would mean. Patient's made the final decision to proceed with the extubation and family members were in agreement. Patient was given morphine, Ativan and glycopyrrolate for comfort and subsequently extubated. Magnet was placed over his defibrillator to make it stop. monitoring specialist initially showed activity but it was all pacing without any intrinsic rhythm. Later it showed ventricular fibrillation, indicating that the defibrillator had stopped working and was no longer firing. Approximately 30 minutes later, at 4:50 PM, no cardiac activity was noted on the monitor and patient was pronounced . This was communicated to the family who was at bedside. Shortly after allowing the family members some alone time with the patient, he was examined to confirm the . Heart and lung sounds as well as pulses were absent. Bilateral pupils were fixed and dilated. Total time attending Dr. Mcdermott spent with the patient was 60 minutes.
--- NOTE | 2017-01-19 08:34 | Discharge Summary ---
Visit Information Visit Dates Admission Date: 01/10/17 Discharge Date: 01/15/17 Hospital Course Course Attending Physician: Kristopher MCDERMOTT MD Primary Care Physician: RAUL MARTINEZ MD Consulting Request: 1 Consulting Specialty: Neurology Consulting Physician: Dr Sebastian Dennison, Dr Viviana Santana Consulting Request: 2 Consulting Specialty: Cardiology Consulting Physician: Dr Milton Bermudez Consulting Request: 3 Consulting Specialty: Hematology/Oncology Consulting Physician: Dr Francisco Bal [facility] Course: 81 years old Mr Robb with past medical history of diabetes mellitus, hypertension, coronary artery disease status post open heart surgery more than 20 years back, h/o VFib s/p defibrillator, hyperlipidemia, BPH, who was brought in to emergency department by ambulance with ongoing cardiopulmonary resuscitation, after sustaining possible choking episode in a restaurant while he was whith his . Events described in the restaurant was "...while eathing, all of a sudden he stopped eating and stared at me, he couldn't speak at all, and he started sweating and turning blue. It was then that nearby people realized that he probably was choking and tried Heimlich maneuvre without success. he was laid on the floor and CPR was started until EMS arrived and took over." Cardiopulmonary resuscitation was continued in the emergency department. He received epinephrine, central line was placed and IV pressors Levophed was started. He was admitted int he ICU for continuous vitals monitoring, ventilation support, pressor support, hypothermia protocol. He held a full code status per his at the time of admission. Neurology, cardiology, pulmonology, hematology was consulted and life support was maintained. After initial 24 hours of hypothermia protocol, and rewarming the next day, he was still on IV pressors any drug, required IV propofol, IV antiseizure medications, electrolyte replacement. IV antibiotics were given as proplylaxis. Patient was having infrequent myoclonic jerks so antiseizure medications were increased/adjusted accordingly. Propofol and Ativan was slowly weaned off while trying to assess his neurologic functioning. His pupils were initially constricted bilaterally without any reflex, but were later widened, still without reflex. Neurological examination was unyielding with absent reflexes bilaterally- superficial as well as deep; absent corneal reflexes, not arousable on pain, no reflex to pain either, except for infrequent myoclonic spasms of upper limbs or facial muscles. Cardiac activity kept on going, as the patient had defibrillator/pacemaker. Considering guarded prognosis, patient's family was well explained about his current condition and the possible prognosis. After not realizing any meaningful improvement in his condition, family including his , decided to stop the defibrillator and extubate the patient on 01/15/2017. On 01/15/17, patient's family members including his , who is the power of personal injury attorney (POA), expressed their desire to make him comfort care in light of his extremely guarded prognosis. They were aware that this would involve terminal extubation with the strong likelihood of patient expiring within a matter of minutes. However, they stated that they would like to talk to [facility] attending Dr. Mcdermott first before proceeding with the extubation. Dr. Mcdermott was called to the bedside and had an extensive discussion with the family regarding goals of care, clearly explaining what extubation would mean. Patient's made the final decision to proceed with the extubation and family members were in agreement. Patient was given morphine, Ativan and glycopyrrolate for comfort and subsequently extubated. Magnet was placed over his defibrillator to make it stop. awake overnight monitor initially showed activity but it was all pacing without any intrinsic rhythm. Later it showed ventricular fibrillation, indicating that the defibrillator had stopped working and was no longer firing. Approximately 30 minutes later, at 4:50 PM, no cardiac activity was noted on the monitor and patient was pronounced . This was communicated to the family who was at bedside. Shortly after allowing the family members some alone time with the patient, he was examined to confirm the . Heart and lung sounds as well as pulses were absent. Bilateral pupils were fixed and dilated. Total time attending Dr. Mcdermott spent with the patient was 60 minutes. Patient's family was informed about the updates and guarded prognosis everyday while he was in the ICU and the family seemed to understand the situation. Allergies: Coded Allergies: No Known Allergies (01/10/17) Significant Procedures: Initial Lab values in the Emergency Department: 01/10/17 1602: Anion Gap 23 H, Estimated GFR > 60, BUN/Creatinine Ratio 18.9, Glucose 251 H, Calcium 8.7, Magnesium 2.4 H, Total Bilirubin 0.6, AST 374 H, ALT 327 H, Alkaline Phosphatase 86, Troponin I < 0.01, Total Protein 6.4, Albumin 3.4 L, Globulin 3.0, Albumin/Globulin Ratio 1.1, CBC w Diff MAN DIFF ORDERED, RBC 4.57 L, MCV 89.1, MCH 29.6, RDW 14.4, MPV 10.2, Gran % 71.1, Lymphocytes % 24.7, Monocytes % 3.1, Eosinophils % 0.9, Basophils % 0.2, Absolute Granulocytes 14.1 H, Segmented Neutrophils 53, Band Neutrophils 22 H, Absolute Lymphocytes 4.9 H , Lymphocytes 23, Monocytes 1 L, Absolute Monocytes 0.6, Eosinophils 1, Absolute Eosinophils 0.2, Absolute Basophils 0, Platelet Estimate VERIFIED BY SMEAR, Poikilocytosis 1+, [place] Cells 1+, PUBS MCHC 33.3, [place]ld Total RBCs Counted 100 01/10/17 1600: pH 7.11 *L, pCO2 35, pO2 73 L, HCO3 11 L, ABG O2 Sat (Measured) 87.0 L, Carboxyhemoglobin 1.0 L, O2 Concentration % 100%, Respiration Rate 16, O2 Delivery Method ESPRIT VENT, Vent Mode AC, Expiratory Pressure 5, Tidal Volume 550, Phlebotomy Draw Site RIGHT RADIAL Latest lab values after admission: Laboratory Tests 01/15 01/15 1230 0600 Blood Gas pH (7.35 - 7.45 PH) 7.46 H pCO2 (35 - 45 TORR) 22 L pO2 (80 - 100 TORR) 73 L HCO3 (21 - 28 MEQ/L) 15 L ABG O2 Sat (Measured) (>96.0 %) 94.0 L P-50 (Temp Corrected) N Carboxyhemoglobin (1.5 - 5.0 %) 0 L O2 Concentration % .50 Respiration Rate (BPM) 20 O2 Delivery Method VENT Vent Mode A/C Expiratory Pressure (CMH2O/P) 5 Tidal Volume (CC) 550 Hematology CBC w Diff Pending WBC Pending RBC Pending Hgb Pending Hct Pending MCV Pending MCH Pending RDW Pending Plt Count Pending MPV Pending PUBS MCHC Pending Miscellaneous Phlebotomy Draw Site RIGHT RADIAL 01/15 0450 Chemistry Sodium (137 - 145 mmol/L) 146 H Potassium (3.5 - 5.1 mmol/L) 3.6 Chloride (98 - 107 mmol/L) 120 H Carbon Dioxide (22 - 30 mmol/L) 18 L Anion Gap (5 - 16) 8 BUN (9 - 20 mg/dL) 11 Creatinine (0.7 - 1.2 mg/dL) 0.8 Estimated GFR (>60 ml/min) > 60 Glucose (65 - 99 mg/dL) 82 Calcium (8.4 - 10.2 mg/dL) 7.3 L Phosphorus (2.5 - 4.5 mg/dL) 2.5 Magnesium (1.6 - 2.3 mg/dL) 1.9 Total Bilirubin (0.2 - 1.3 mg/dL) 0.5 AST (17 - 59 U/L) 30 ALT (21 - 72 U/L) 50 Albumin (3.5 - 5.0 g/dL) 1.7 L Coagulation PT (9.4 - 12.5 SEC) 13.1 H INR (0.90 - 1.17) 1.25 H APTT (25 - 37 SEC) 29 Fibrinogen Activity (200 - 393 MG/DL) 343 Fibrin Degrad Products (< 10 ug/ml) >10 but < 40 ug/ml H Hematology CBC w Diff NO MAN DIFF REQ WBC (4.8 - 10.8 /CUMM) 5.4 RBC (4.70 - 6.10 /CUMM) 2.45 L Hgb (14.0 - 18.0 G/DL) 7.4 *L Hct (42 - 52 %) 21.4 L MCV (80.0 - 94.0 FL) 87.3 MCH (27.0 - 31.0 PG) 30.1 RDW (11.5 - 14.5 %) 15.6 H Plt Count (130 - 400 /CUMM) 71 L MPV (7.4 - 10.4 FL) 10.9 H Gran % (42.2 - 75.2 %) 89.4 H Lymphocytes % (20.5 - 51.1 %) 6.1 L Monocytes % (1.7 - 9.3 %) 4.4 Eosinophils % (0 - 5 %) 0.1 Basophils % (0.0 - 2.0 %) 0 L Absolute Granulocytes (1.4 - 6.5 /CUMM) 4.9 Absolute Lymphocytes (1.2 - 3.4 /CUMM) 0.3 L Absolute Monocytes (0.10 - 0.60 /CUMM) 0.2 Absolute Eosinophils (0.0 - 0.7 /CUMM) 0 Absolute Basophils (0.0 - 0.2 /CUMM) 0 PUBS MCHC (33.0 - 37.0 G/DL) 34.4 Initial Chest X-ray: IMPRESSION: 1. Endotracheal tube in good position. 2. Patchy alveolar opacities in the left midlung and left lung base which could be due to aspiration or early alveolar edema. 3. Probable trace right apical pneumothorax. This critical result was discussed by telephone with Dr. Leggett at 4:51 PM on 01/10/2017 . DICTATED BY: MARLON ALFONSO MD DATE/TIME DICTATED:01/10/171645 FEE CLERK:RADSergioHOUGH DATE/TIME TRANSCRIBED:01/10/171645 Initial Chest CT: IMPRESSION: 1. Dependent by basilar atelectasis infiltrate with air bronchograms. Small patchy parenchymal infiltrate in the anterior left upper lobe. 2. Small dependent bilateral pleural effusions. 3. Endotracheal tube catheter approximately 2.5 cm above kristy. Nasogastric tube in stomach. Pacemaker leads in right atrium and right ventricle. DICTATED BY: MONIKA CHAVEZ MD DATE/TIME DICTATED:01/10/172015 FEE CLERK:RAD.HOUGH DATE/TIME TRANSCRIBED:01/10/[address]: IMPRESSION: No acute intracranial pathology. No intracranial hemorrhage. [place] to white matter differentiation is maintained with severe small vessel ischemic changes. 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 DICTATED BY: SONIA TELLO MD DATE/TIME DICTATED:01/10/172013 FEE CLERK:RAD.HOUGH DATE/TIME TRANSCRIBED:01/10/172013 ECHOcardiogram: CONCLUSIONS The left ventricle is upper normal normal limits in size. Left ventricular wall thickness was upper normal limits. The interventricular septum appears to contract well. The inferior and posterior gonzáles are hypo-to akinetic. Apical views are suboptimal. Estimated ejection fraction is probably 35-40% visually. Catheter/pacemaker wire in the right ventricular cavity. Mild to moderate left atrial dilatation. Mild thickening/calcification of the anterior mitral valve leaflet. Focal thickening of the aortic valve cusps. No aortic stenosis. Right ventricular systolic pressure estimated to be elevated at 40- 45 mmHg. Milton Bermudez M.D. (Electronically Signed) Final Date: 11 January 2017 18:22 Repeat Chest X-ray: IMPRESSION: 1. Endotracheal tube terminating 5.5 cm above the kristy. 2. Small bilateral pleural effusions with airspace opacities, left greater than right. This is similar to previous imaging. 3. Right internal jugular central venous catheter terminates over the mid SVC. DICTATED BY: SONIA TELLO MD DATE/TIME DICTATED:01/10/172142 FEE CLERK:MAGNOLIA DATE/TIME TRANSCRIBED:01/10/172142 EEG report: Interpretation: patient on propofol no cortical activity is present Intermittend bursts of sharp waves and polysharpwaves appear throughout the recording Impression: Abnormal EEG due to loss of cortical activitywhich n\\may be due to propofol and charp wave bursts which are potentially epileptogenic DICTATED BY: VIVIANA SANTANA MD DATE/TIME DICTATED:01/12/171500 FEE CLERK:SAMPSON DATE/TIME TRANSCRIBED:01/12/171500 REPORT NUMBER:[id number] Disposition Summary Disposition Principal Diagnosis: Cardiopulmonary arrest, after choking event Additional Diagnosis: Diabetes mellitus, Hypertension, Coronary artery disease s/p open heart surgery more than 20 yrs back, h/o ventricular fibrillation s/p defibrillator placement, hyperlipidemia, BPH Discharge Disposition: Discharge Instructions General Discharge Information Code Status: Do Not Resucitate/Intubat Patient's Diet: - Patient's Activity: - Follow-Up Instructions/Appts: - Copies To: RAUL MARTINEZ MD
--- NOTE | 2017-01-25 14:57 | NUR ---
NOTE FOR 01/15/17 1834 FAMILY DECIDED TO MAKE PT [employer]ELOPER. DR SINGER AND MESFIN NOTIFIED. DR TOURE TO BEDSIDE TO DISCUSS WITH FAMILY. PT GIVEN ATIVAN, MSO4, AND ROBINOL. PT EXTUBATED AT 1620. PT PACEMAKER TURNED OFF WITH MAGNET. PT WENT VFIB TO [facility] AND WAS PRONOUNCED AT 1650. FAMILY PROVIDED WITH EMOTIONAL SUPPORT FROM STAFF AND DIABETES NURSE.
== END 2017-01-15 16:50 | disposition expired | DRG 207 ==
LOC: ENRESERVTM → ENRESERVDT → ERH 15:24 → CRI 16:50 → ERHI 16:50 → CRI 19:46
PROVIDERS: Dermatology; Emergency Medicine; Internal Medicine Hematology & Oncology; Internal Medicine Interventional Cardiology; ADMIT Internal Medicine Pulmonary Disease
PROC: 5A1955Z Respiratory Ventilation, Greater than 96 Consecutive Hours (ICD-10-PCS; principal; 2017-01-10)
DX: J69.0 Pneumonitis due to inhalation of food and vomit (principal); I46.8 Cardiac arrest due to other underlying condition; D65 Disseminated intravascular coagulation [defibrination syndrome]; J96.90 Respiratory failure, unspecified, unspecified whether with hypoxia or hypercapnia; K72.00 Acute and subacute hepatic failure without coma; G93.1 Anoxic brain damage, not elsewhere classified; I24.8 Other forms of acute ischemic heart disease; T17.920A Food in respiratory tract, part unspecified causing asphyxiation, initial encounter; R56.9 Unspecified convulsions; X58.XXXA Exposure to other specified factors, initial encounter; G25.3 Myoclonus; I10 Essential (primary) hypertension; Z51.5 Encounter for palliative care; I25.10 Atherosclerotic heart disease of native coronary artery without angina pectoris; Z95.1 Presence of aortocoronary bypass graft; E11.9 Type 2 diabetes mellitus without complications; E78.5 Hyperlipidemia, unspecified; N40.0 Benign prostatic hyperplasia without lower urinary tract symptoms; I73.9 Peripheral vascular disease, unspecified; Z95.810 Presence of automatic (implantable) cardiac defibrillator; Z95.5 Presence of coronary angioplasty implant and graft
CPT/HCPCS: 84133; 84300; CCU; 36415; 81001; 82436; 82570; 87040; 87070; 87071; 87086; 87147; 93005; 93010; 93306; 94799; 95816; 96374; 96375; 99291; C9254; J0461; J1644; J1953; J2060; J2270; J3370; J7040; J7042; J7060